=== PATIENT | male | born 1980 | race Two or more races ===

== ENCOUNTER 2020-02-22 11:53 | Outpatient (REF) | payer OTHER, SELFPAY ==
[2020-02-28 11:48] LABS: Testosterone, Free 6.5 pg/mL (35.0-155.0); Testosterone, Total 33 ng/dL (250-1100)
== END 2020-02-22 11:54 | disposition home or self-care (01) ==
LOC: HO.LAB 11:53
PROVIDERS: PCP Internal Medicine; Visit Provider Internal Medicine
DX: E29.1 Testicular hypofunction (principal)
CPT/HCPCS: 36415; 84402; 84403

== ENCOUNTER → 2020-03-13 10:32 | Outpatient (BNVA) | payer OTHER, SELFPAY | PROVIDERS: PCP Internal Medicine; Visit Provider Urology | DX: E29.1 Testicular hypofunction (principal) | CPT/HCPCS: 99202 ==

== ENCOUNTER → 2020-03-28 10:18 | Outpatient (BNVA) | payer OTHER, SELFPAY | PROVIDERS: PCP Internal Medicine; Visit Provider Urology | DX: E29.1 Testicular hypofunction (principal); Z79.891 Long term (current) use of opiate analgesic | CPT/HCPCS: 96372; 99212 ==

== ENCOUNTER → 2020-04-11 14:33 | Outpatient (BNVA) | payer OTHER, SELFPAY | PROVIDERS: PCP Internal Medicine; Visit Provider Urology | DX: E29.1 Testicular hypofunction (principal) | CPT/HCPCS: 96372; 99212 ==

== ENCOUNTER → 2020-04-29 15:07 | Outpatient (BNVA) | payer OTHER, SELFPAY | PROVIDERS: PCP Internal Medicine; Visit Provider Urology | DX: E29.1 Testicular hypofunction (principal) | CPT/HCPCS: 96372; 99212 ==

== ENCOUNTER 2020-11-19 14:41 | Outpatient (REF) | payer OTHER, SELFPAY ==
--- NOTE | ~2020-11-19 | XR_ITS ---
EXAMINATION: XR CHEST CLINICAL INFORMATION: Cough and wheezing. Tobacco use. COMPARISON: None TECHNIQUE: 2 views of the chest were obtained. FINDINGS: No significant abnormality is noted involving the heart, lungs, mediastinum, bony thorax or soft tissues. XR/XR chest 2V IMPRESSION: Unremarkable examination.
== END 2020-11-19 14:42 | disposition home or self-care (01) ==
LOC: HO.XRAY 14:41
PROVIDERS: PCP Internal Medicine; Visit Provider Internal Medicine
DX: R50.9 Fever, unspecified (principal); R06.2 Wheezing; F17.200 Nicotine dependence, unspecified, uncomplicated
CPT/HCPCS: 71046

== ENCOUNTER 2021-03-13 10:04 | Outpatient (REF) | payer OTHER, SELFPAY ==
[2021-03-13 10:51] LABS: Hematocrit 49.5 % (42.0-52.0); Hemoglobin 16.2 g/dl (14.0-18.0); Mean Corpuscular HGB Conc 32.7 g/dl (31.0-36.0); Mean Corpuscular Hemoglobin 27.3 pg (27.0-33.0); Mean Corpuscular Volume 83.3 fL (80.0-98.0); Mean Platelet Volume 10.6 fL (9.4-12.4); Platelet Count 319 X10*3/uL (160-400); Red Blood Count 5.94 X10*6/uL (4.60-5.80); Red Cell Distribution Width 12.7 % (11.0-16.0); White Blood Count 9.3 X10*3/uL (4.8-10.8)
[2021-03-13 11:40] LABS: Prostate Specific Antigen 0.38 ng/mL (<0.05-4.0)
[2021-03-18 11:56] LABS: Testosterone, Total 588 ng/dL (250-1100)
== END 2021-03-13 10:05 | disposition home or self-care (01) ==
LOC: HO.LAB 10:04
PROVIDERS: PCP Internal Medicine; Visit Provider Urology
DX: E29.1 Testicular hypofunction (principal); N40.1 Benign prostatic hyperplasia with lower urinary tract symptoms; N13.8 Other obstructive and reflux uropathy; Z12.5 Encounter for screening for malignant neoplasm of prostate
CPT/HCPCS: 36415; 84153; 84403; 85027

== ENCOUNTER → 2021-03-20 08:55 | Outpatient (BNVA) | payer OTHER, SELFPAY | PROVIDERS: PCP Internal Medicine; Visit Provider Urology ==

== ENCOUNTER 2021-09-11 11:22 | Outpatient (REF) | payer OTHER, SELFPAY ==
[2021-09-11 12:08] LABS: Hematocrit 49.2 % (42.0-52.0); Hemoglobin 16.2 g/dl (14.0-18.0); Mean Corpuscular HGB Conc 32.9 g/dl (31.0-36.0); Mean Corpuscular Hemoglobin 27.1 pg (27.0-33.0); Mean Corpuscular Volume 82.3 fL (80.0-98.0); Mean Platelet Volume 10.4 fL (9.4-12.4); Platelet Count 271 X10*3/uL (160-400); Red Blood Count 5.98 X10*6/uL (4.60-5.80); White Blood Count 10.5 X10*3/uL (4.8-10.8)
[2021-09-11 12:52] LABS: Prostate Specific Antigen 0.68 ng/mL (<0.05-4.0)
[2021-09-21 12:55] LABS: Testosterone, Total 489 ng/dL (250-1100)
== END 2021-09-11 11:23 | disposition home or self-care (01) ==
LOC: HO.LAB 11:22
PROVIDERS: PCP Internal Medicine; Visit Provider Urology
DX: Z12.5 Encounter for screening for malignant neoplasm of prostate (principal); E29.1 Testicular hypofunction; N13.8 Other obstructive and reflux uropathy; N40.1 Benign prostatic hyperplasia with lower urinary tract symptoms
CPT/HCPCS: 36415; 84153; 84403; 85027

== ENCOUNTER → 2021-09-18 13:27 | Outpatient (BNVA) | payer OTHER, SELFPAY | PROVIDERS: PCP Internal Medicine; Visit Provider Urology | DX: E29.1 Testicular hypofunction (principal) | CPT/HCPCS: 99212 ==

== ENCOUNTER 2021-10-28 11:57 | Outpatient (REF) | payer OTHER, SELFPAY ==
[2021-10-28 12:11] LABS: MANUAL DIFF FLAG NO
[2021-10-28 12:17] LABS: Basophils Absolute Auto 0.1 X10*3/uL (0.0-0.2); Basophils Percent Auto 1.1 % (0-2); Eosinophils Absolute Auto 0.3 X10*3/uL (0.0-0.4); Eosinophils Percent Auto 3.4 % (0-4); Hematocrit 49.5 % (42.0-52.0); Hemoglobin 16.1 g/dl (14.0-18.0); Imm Gran Abs Auto 0.04 X10*3/uL (0.00-0.03); Imm Gran Pct Auto 0.4 % (0.0-0.4); Lymphocytes Absolute Auto 2.7 X10*3/uL (1.2-4.9); Lymphocytes Percent Auto 27.9 % (20-40); Mean Corpuscular HGB Conc 32.5 g/dl (31.0-36.0); Mean Corpuscular Hemoglobin 26.7 pg (27.0-33.0); Monocytes Absolute Auto 0.9 X10*3/uL (0.1-1.2); Monocytes Percent Auto 9.2 % (2-11); Neutrophils Absolute Auto 5.6 x10*3/uL (2.0-8.3); Platelet Count 251 X10*3/uL (160-400); Red Blood Count 6.04 X10*6/uL (4.60-5.80); Red Cell Distribution Width 12.9 % (11.0-16.0); White Blood Count 9.7 X10*3/uL (4.8-10.8)
[2021-10-28 13:10] LABS: Alanine Aminotransferase 44 U/L (0-40); Albumin Level 4.4 g/dL (3.5-5.0); Alkaline Phosphatase 75 U/L (39-117); Anion Gap 13 (12-20); Aspartate Amino Transferase 26 U/L (5-37); Bilirubin Total 0.5 mg/dL (0.0-1.0); Blood Urea Nitrogen 11 mg/dL (9-16); Calcium 9.6 mg/dL (8.4-10.2); Carbon Dioxide 29 mmol/L (22-29); Chloride 100 mmol/L (96-108); Estimated Glomerular Filt Rate > 60; Glucose Random 90 mg/dL (60-115); Potassium 4.4 mmol/L (3.3-5.1); Sodium 138 mmol/L (135-145); Total Protein 7.6 g/dL (6.5-8.0)
[2021-10-28 13:30] LABS: Thyroid Stimulating Hormone 1.15 uIU/mL (0.32-4.0)
== END 2021-10-28 11:58 | disposition home or self-care (01) ==
LOC: HO.LAB 11:57
PROVIDERS: PCP Internal Medicine; Visit Provider Internal Medicine
DX: R53.83 Other fatigue (principal); G47.33 Obstructive sleep apnea (adult) (pediatric); R63.5 Abnormal weight gain
CPT/HCPCS: 36415; 80053; 84443; 85025

== ENCOUNTER → 2022-04-12 14:43 | Outpatient (BNVA) | payer OTHER, SELFPAY | PROVIDERS: PCP Internal Medicine; Visit Provider Internal Medicine | DX: G47.33 Obstructive sleep apnea (adult) (pediatric) (principal); F11.90 Opioid use, unspecified, uncomplicated; G47.37 Central sleep apnea in conditions classified elsewhere; E29.1 Testicular hypofunction; E66.9 Obesity, unspecified; F17.200 Nicotine dependence, unspecified, uncomplicated; Z68.34 Body mass index [BMI] 34.0-34.9, adult; Z99.89 Dependence on other enabling machines and devices | CPT/HCPCS: 99202 ==

== ENCOUNTER 2022-05-22 10:36 | Outpatient (REF) | payer OTHER, SELFPAY ==
[2022-05-22 10:55] LABS: Hematocrit 48.1 % (42.0-52.0)
[2022-05-27 14:53] LABS: Testosterone, Total 158 ng/dL (250-1100)
== END 2022-05-22 10:37 | disposition home or self-care (01) ==
LOC: HO.LAB 10:36
PROVIDERS: PCP Internal Medicine; Visit Provider Urology
DX: Z12.5 Encounter for screening for malignant neoplasm of prostate (principal); E29.1 Testicular hypofunction; N13.8 Other obstructive and reflux uropathy; N40.1 Benign prostatic hyperplasia with lower urinary tract symptoms
CPT/HCPCS: 36415; 84153; 84403; 85014

== ENCOUNTER → 2022-05-25 19:30 | Outpatient (REF) | payer OTHER, SELFPAY | LOC: HO.SL 19:30 | PROVIDERS: PCP Internal Medicine; Visit Provider Internal Medicine | DX: G47.33 Obstructive sleep apnea (adult) (pediatric) (principal) | CPT/HCPCS: 95811 ==

== ENCOUNTER → 2022-05-28 12:00 | Outpatient (BNVA) | payer OTHER, SELFPAY | PROVIDERS: PCP Internal Medicine; Visit Provider Urology ==

== ENCOUNTER → 2022-06-09 14:25 | Outpatient (BNVA) | payer OTHER, SELFPAY | PROVIDERS: PCP Internal Medicine; Visit Provider Internal Medicine | DX: G47.33 Obstructive sleep apnea (adult) (pediatric) (principal); E29.1 Testicular hypofunction; G47.37 Central sleep apnea in conditions classified elsewhere; E66.9 Obesity, unspecified; F11.90 Opioid use, unspecified, uncomplicated; Z99.89 Dependence on other enabling machines and devices; Z68.35 Body mass index [BMI] 35.0-35.9, adult | CPT/HCPCS: 99212 ==

== ENCOUNTER → 2022-06-21 15:57 | Outpatient (REF) | payer OTHER, SELFPAY ==
--- NOTE | 2022-06-21 15:59 | CA_ITS ---
Transthoracic Echocardiogram Patient (Last, First, Middle): Thang Funk, Gender: Male Date of : 1980 Age: 42 Procedure Date: 06/21/2022 Procedure Type: Transthoracic Echocardiogram Location: OP Height: 180.34 cm Weight: 113.4 kg BSA: 2.32 m2 Heart Rate: bpm BP: 124 / 80 mmHg Hand Driller: Referring MD: Simran Davila MD Symptoms: G47.37 CENTRAL SLEEP [id number] - Opioid use, unspecified, Study Quality: Adequate ECG Rhythm: Sinus Conclusions: - The left ventricular systolic function is normal. The calculated ejection fraction is 58% by biplane method. - Mildly increased right ventricular cavity size. - No obvious valvular pathology seen on this study. - The inferior vena cava is mildly dilated and collapses less than 50% with inspiration. Findings Left Ventricle Normal left ventricular cavity size. There is mildly increased left ventricular wall thickness. The left ventricular systolic function is normal. The calculated ejection fraction is 58% by biplane method. There is no evidence of regional wall motion abnormalities. Diastolic function is normal for age. LV peak GLS -20.9%. Right Ventricle Mildly increased right ventricular cavity size. There is normal right ventricular systolic function. Atria Both atria are normal in size. Aortic Valve There is a normal trileaflet aortic valve. There is no aortic valve stenosis. There is no aortic valve regurgitation. Mitral Valve The mitral valve appears normal. There is no mitral valve regurgitation. There is no mitral valve stenosis. Pulmonic Valve The pulmonic valve is likely normal. Tricuspid Valve There is trace tricuspid valve regurgitation. There is no evidence of pulmonary hypertension. Great Vessels The asc aorta is normal in size. Venous The inferior vena cava is mildly dilated and collapses less than 50% with inspiration. Pericardium/Pleural There is no evidence of pericardial effusion. Prior Study Comparison No prior study available for comparison. Recommendations, Care & Conclusions No obvious valvular pathology seen on this study. Measurements 2D Linear Measurements IVSd: 1.08 0.6-0.9/0.6-1.0 cm LVIDd: 4.46 3.9-5.3/4.2-5.9 cm LVIDd Index: 1.92 2.4-3.2/2.2-3.1 cm/m2 LVIDs: 2.81 2.0-3.6 cm LVPWd: 1.09 0.7-1.1 cm Ao Root: 3.10 2.1-3.5 cm LA Diam: 3.60 2.7-3.8/3.0-4.0 cm LAIDs Index: 1.55 1.5-2.3 cm/m2 LV Mass: 210.83 67-162/88-224 g LV Mass Index: 90.87 43-95/49-115 g/m2 LVOT Diam: 2.30 3.0+(-)1.3 cm 2D Systolic Function EF 4C: 60.50 >55% EF 2C: 55.00 >55% EF BiP: 57.90 >55% Mitral Valve MV Pk E: 0.99 MV PK A: 0.80 MV Decel Time: 171.00 E/A: 1.20 E'Lateral: 13.40 E'Medial: 12.20 E/E' Med: 8.10 E/E' Lat: 7.40 PHT: 50.00 MVA PHT: 4.40 Decel [place]: 5.79 Aortic Valve AoV Pk Juan: 1.60 AoV Mn Juan: 1.03 AoV VTI: 0.32 AoV Pk Grad: 10.00 Aov Mn Grad: 5.00 SHIRIN Cont.VTI: 2.48 LVOT LVOT Pk Juan: 0.89 LVOT Mn Juan: 0.60 LVOT VTI: 0.19 LVOT Pk Grad: 3.00 LVOT Mn Grad: 2.00 LVOT Diam: 2.30 LVOT Area: 4.15 Diastolic Function MV Pk E: 0.99 MV Pk A: 0.80 E/A: 1.20 E'Medial: 12.20 E/E' Med: 8.10 E' Laterial: 13.40 E/E' Lat: 7.40 Right Ventricle TAPSE (mm): 24.00 TVS' Juan: 16.00 Tricuspid Valve TR Pk Juan: 1.85 TR Pk Grad: 14.00 RA Press: 15.00 RVSP: 29.00 Great Vessels Aorta Ao Root-2D: 3.10 2.0-3.7 cm Ao Asc: 3.10 2.1-3.4 cm Pulmonary Valve PV Pk Juan: 1.00 Peak PV Grad: 4.00 Updated in Other Vendor System with Status of Final Maycol Baird MD electronically signed on 06/22/2022 10:59:43 AM with status of Final
== END ==
LOC: HO.CARD 15:57
PROVIDERS: PCP Internal Medicine; Visit Provider Internal Medicine
DX: F11.90 Opioid use, unspecified, uncomplicated (principal); G47.37 Central sleep apnea in conditions classified elsewhere
CPT/HCPCS: 93306; 93356

== ENCOUNTER 2022-07-03 19:05 | Emergency (ER) | payer OTHER, SELFPAY ==
--- NOTE | ~2022-07-03 | XR_ITS ---
EXAMINATION: XR ABDOMEN KUB CLINICAL INDICATION: Fecal impaction COMPARISON: None available. TECHNIQUE: AP view of the abdomen. FINDINGS: There is a large amount of stool seen in colon without colonic distention. The small bowel loops are normal caliber. Scattered phleboliths are seen in pelvis. No organomegaly. No gross bony abnormality. XR/XR KUB IMPRESSION: Moderate to significant constipation.
[2022-07-03 19:09] VITALS: BP 173/85; PULSE 84; RESP 18; TEMP 36.7; O2SAT 98; BMI 35.5
--- NOTE | 2022-07-03 19:10 | ED_ITS ---
HPI - General Adult General Chief complaint: GI Bleed Stated complaint: Sent by DR. Ayers Time Seen by Provider: 07/03/22 19:43 Source: patient Mode of arrival: ambulatory Limitations: no limitations History of Present Illness HPI narrative: Patient history of constipation on methadone been having hard stool with blood mixed for last 4 days no significant abdominal pain today patient felt nauseated and had blood earlier with brown stool Related Data Home Medications Medication Instructions Recorded Confirmed albuterol sulfate 90 mcg/actuation 2 puff inhalation Q6H PRN wheezing 04/12/22 05/28/22 aerosol inhaler (Ventolin HFA) methadone 10 mg tablet 5 mg PO DAILY 04/12/22 05/28/22 Previous Rx's Medication Instructions Recorded syringe with needle 3 mL 25 x 5/8 #100 ea 01/07/21 (BD Luer-Kitty Syringe) needle (disp) 22 G 22 gauge x 1 #20 ea 03/20/21 1/2 (BD Regular Bevel [place]) syringe (disposable) 1 mL (BD #30 ea 03/20/21 Luer-Kitty Syringe) testosterone cypionate 200 mg/mL 100 mg (0.5 mL) subcut QWEEK 28 05/28/22 intramuscular oil days #2 mL (Depo-Testosterone) polyethylene glycol 3350 17 17 g PO DAILY #510 grams 07/03/22 gram/dose oral powder (Miralax) Allergies Allergy/AdvReac Type Severity Reaction Status Date / Time No Known Allergies Allergy Verified 07/03/22 19:08 Review of Systems Review of Systems: Yes all other systems are reviewed and are negative PMFSH Past Medical History Medical History Central sleep apnea comorbid with prescribed opioid use Hypogonadism in male Obesity (BMI 30-39.9) [place] on CPAP Testosterone deficiency in male Social History Social History Patient Tobacco Use Status: Current everyday Tobacco user Cigarette Packs Per Day: 6 Advance Directives: No Advance Directives Information Provided: Yes Physical Exam ED Vital Signs: Vital Signs - 24 hr 07/03/22 19:09 Temperature 98.0 F Pulse Rate 84 Respiratory Rate 18 Blood Pressure 173/85 H Pulse Oximetry 98 Oxygen Delivery Method Room Air BMI result Body Mass Index 35.5 Appearance: Alert. Oriented X3. No acute distress. Eyes: No pallor ENT: Pharynx normal. Oral Mucosa moist Neck: Normal inspection. Neck supple. CVS: Normal heart rate and rhythm. Pulses normal. Respiratory: No respiratory distress. Equal air entry bilateral, no wheezing/rales/rhonchi Abdomen: Soft and nontender. Bowel sounds are present, no mass palpable, no CVA tenderness rectal: Brown stool guaiac neg Skin: Skin warm and dry. Normal skin color. Normal skin turgor. Extremities: No lower extremity edema. No calf tenderness Neuro: Oriented X 3. No motor deficit. No sensory deficit.No cerebellar signs , cranial nerves II-XII intact Course Course Course Narrative: RME performed by Nella Salmeron PA-C. Patient is a 42 year old assigned male at presenting to the emergency department with constipation, blood in stool, and abdominal pain. Labs ordered. Patient placed back in the waiting room pending room availability and results. Medications Administered Discontinued Medications Generic Name Dose Route Start Last Admin Trade Name Freq PRN Reason Stop Dose Admin Bisacodyl 10 mg 07/03/22 20:05 07/03/22 20:43 Bisacodyl 5 Mg Tablet.Dr PO 07/03/22 20:06 10 mg ONCE ONE Administration Magnesium Hydroxide 30 ml 07/03/22 20:05 07/03/22 20:43 Milk Of Magnesia 30 Ml Oral.Susp PO 07/03/22 20:06 30 ml ONCE ONE Administration Medical Decision Making Medical Decision Making [facility] Narrative: Patient with constipation with rectal bleed likely him internal hemorrhoid no external hemorrhoid seen H&H stable Lab Data [facility] Lab Attestation statement: I reviewed the patient's lab results. 07/03/22 20:24 07/03/22 20:24 Labs: Lab Results 07/03/22 07/03/22 07/03/22 Range/Units 20:24 20:24 20:24 WBC 8.7 (4.8-10.8) X10*3/uL RBC 5.36 (4.60-5.80) X10*6/uL Hgb 14.7 (14.0-18.0) g/dl Hct 44.4 (42.0-52.0) % MCV 82.8 (80.0-98.0) fL MCH 27.4 (27.0-33.0) pg MCHC 33.1 (31.0-36.0) g/dl RDW 12.9 (11.0-16.0) % Plt Count 254 (160-400) X10*3/uL MPV 10.2 (9.4-12.4) fL Immature Gran % (Auto) 0.2 (0.0-0.4) % Neut % (Auto) 47.3 (45-73) % Lymph % (Auto) 36.4 (20-40) % [place] % (Auto) 9.6 (2-11) % Eos % (Auto) 5.2 H (0-4) % Baso % (Auto) 1.3 (0-2) % Lymph # (Auto) 3.2 (1.2-4.9) X10*3/uL [place] # (Auto) 0.8 (0.1-1.2) X10*3/uL Eos # (Auto) 0.5 H (0.0-0.4) X10*3/uL Baso # (Auto) 0.1 (0.0-0.2) X10*3/uL Abs Immat Gran (auto) 0.02 (0.00-0.03) X10*3/uL Absolute Neuts (auto) 4.1 (2.0-8.3) x10*3/uL Absolute Nucleated RBC 0.000 (0.0-0.012) X10*3/uL Nucleated RBC % (auto) 0.0 (0.0-0.2) /100WBC Sodium 139 (135-145) mmol/L Potassium 4.4 (3.3-5.1) mmol/L Chloride 104 (96-108) mmol/L Carbon Dioxide 26 (22-29) mmol/L Anion Gap 13 (12-20) BUN 13 (9-16) mg/dL Creatinine 0.96 (0.5-1.4) mg/dL Estim Creat Clear Calc 130.9 Estimated GFR > 60 Random Glucose 102 (60-115) mg/dL Calcium 9.4 (8.4-10.2) mg/dL Magnesium 2.1 (1.6-2.6) mg/dL Total Bilirubin 0.5 (0.0-1.0) mg/dL AST 21 (5-37) U/L ALT 40 (0-40) U/L Alkaline Phosphatase 70 (39-117) U/L Total Protein 6.9 (6.5-8.0) g/dL Albumin 4.0 (3.5-5.0) g/dL Stool Occult Blood NEGATIVE (NEGATIVE) Discharge Plan Discharge Clinical Impression: Hemorrhoids, Constipation Patient Disposition: Home, Self-Care Instructions: Constipation (ED), Hemorrhoids (ED) Additional Instructions: Take stool softener for constipation and avoid straining Blood in the stool is likely from the constipation/internal hemorrhoids Prescriptions: New polyethylene glycol 3350 [Miralax] 17 gram/dose powder 17 g PO DAILY Qty: 510 0RF No Action (DME) BD Luer-Kitty Syringe 3 mL 25 x 5/8 syringe See Rx Instructions .Route Qty: 100 0RF Rx Instructions: As directed (DME) BD Regular Bevel [place] 22 gauge x 1 1/2 needle See Rx Instructions .MEDSUPPLY Qty: 20 0RF Rx Instructions: As directed (DME) BD Luer-Kitty Syringe 1 mL syringe See Rx Instructions .MEDSUPPLY Qty: 30 0RF Rx Instructions: Testosterone injection weekly methadone 10 mg tablet 5 mg PO DAILY Rx Instructions: pt is at 77mg albuterol sulfate [Ventolin HFA] 90 mcg/actuation HFA aerosol inhaler 2 puff inhalation Q6H PRN (Reason: wheezing) testosterone cypionate [Depo-Testosterone] 200 mg/mL oil 100 mg subcut QWEEK 28 Days Qty: 2 5RF
[2022-07-03 20:00] VITALS: BP 135/85; PULSE 69; RESP 16; TEMP 36.7; O2SAT 95
[2022-07-03 20:31] LABS: MANUAL DIFF FLAG NO
[2022-07-03 20:42] LABS: Basophils Absolute Auto 0.1 X10*3/uL (0.0-0.2); Basophils Percent Auto 1.3 % (0-2); Eosinophils Absolute Auto 0.5 X10*3/uL (0.0-0.4); Eosinophils Percent Auto 5.2 % (0-4); Hematocrit 44.4 % (42.0-52.0); Hemoglobin 14.7 g/dl (14.0-18.0); Imm Gran Abs Auto 0.02 X10*3/uL (0.00-0.03); Imm Gran Pct Auto 0.2 % (0.0-0.4); Lymphocytes Absolute Auto 3.2 X10*3/uL (1.2-4.9); Lymphocytes Percent Auto 36.4 % (20-40); Mean Corpuscular HGB Conc 33.1 g/dl (31.0-36.0); Mean Corpuscular Hemoglobin 27.4 pg (27.0-33.0); Mean Corpuscular Volume 82.8 fL (80.0-98.0); Mean Platelet Volume 10.2 fL (9.4-12.4); Monocytes Absolute Auto 0.8 X10*3/uL (0.1-1.2); Monocytes Percent Auto 9.6 % (2-11); Neutrophils Absolute Auto 4.1 x10*3/uL (2.0-8.3); Neutrophils Percent Auto 47.3 % (45-73); Platelet Count 254 X10*3/uL (160-400); Red Blood Count 5.36 X10*6/uL (4.60-5.80); Red Cell Distribution Width 12.9 % (11.0-16.0); White Blood Count 8.7 X10*3/uL (4.8-10.8)
[2022-07-03] MEDS: Milk of Magnesia 30 ML ORAL.SUSP PO (20:43)
[2022-07-03] MEDS: bisacodyL 5 MG TABLET.DR 10 MG PO (20:43)
[2022-07-03 20:52] LABS: OBS Int Ctl Valid YES; OBS1 NEGATIVE (NEGATIVE)
[2022-07-03 20:58] LABS: Alanine Aminotransferase 40 U/L (0-40); Alkaline Phosphatase 70 U/L (39-117); Anion Gap 13 (12-20); Aspartate Amino Transferase 21 U/L (5-37); Bilirubin Total 0.5 mg/dL (0.0-1.0); Blood Urea Nitrogen 13 mg/dL (9-16); Calcium 9.4 mg/dL (8.4-10.2); Carbon Dioxide 26 mmol/L (22-29); Chloride 104 mmol/L (96-108); Creatinine Clr Calc Pharmacy 130.9; Estimated Glomerular Filt Rate > 60; Glucose Random 102 mg/dL (60-115); Magnesium 2.1 mg/dL (1.6-2.6); Potassium 4.4 mmol/L (3.3-5.1); Sodium 139 mmol/L (135-145); Total Protein 6.9 g/dL (6.5-8.0)
== END 2022-07-03 21:53 | disposition home or self-care (01) ==
PROVIDERS: Physician Assistant Medical; Emergency Provider Internal Medicine; PCP Internal Medicine
DX: K64.4 Residual hemorrhoidal skin tags (principal); K59.00 Constipation, unspecified; F11.20 Opioid dependence, uncomplicated; F17.210 Nicotine dependence, cigarettes, uncomplicated; Z79.899 Other long term (current) drug therapy
CPT/HCPCS: 36415; 74018; 80053; 82272; 83735; 85025; 99283

== ENCOUNTER → 2022-07-08 19:30 | Outpatient (REF) | payer OTHER, SELFPAY | LOC: HO.SL 19:30 | PROVIDERS: PCP Internal Medicine; Visit Provider Internal Medicine | DX: F11.90 Opioid use, unspecified, uncomplicated (principal); G47.37 Central sleep apnea in conditions classified elsewhere | CPT/HCPCS: 95811 ==

== ENCOUNTER → 2022-07-27 09:59 | Outpatient (BNVA) | payer OTHER, SELFPAY | PROVIDERS: PCP Internal Medicine; Visit Provider Internal Medicine | DX: G47.33 Obstructive sleep apnea (adult) (pediatric) (principal); E66.9 Obesity, unspecified; E29.1 Testicular hypofunction; F11.90 Opioid use, unspecified, uncomplicated; G47.37 Central sleep apnea in conditions classified elsewhere; Z99.89 Dependence on other enabling machines and devices; Z68.34 Body mass index [BMI] 34.0-34.9, adult | CPT/HCPCS: 99212 ==

== ENCOUNTER 2022-08-23 10:50 | Emergency (ER) | payer OTHER, SELFPAY ==
--- NOTE | 2022-08-23 11:20 | ED.GENADULT ---
HPI - General Adult General Chief complaint: Upper Respiratory Symptoms Stated complaint: Bronchitis Time Seen by Provider: 08/23/22 11:19 Source: patient Mode of arrival: ambulatory Limitations: no limitations History of Present Illness HPI narrative: Patient is a 42 year old assigned male at with a history of asthma presenting to the emergency department today with a cough and worsening wheezing. Patient states that over the last 3 days he has had worsening cough and wheezing. Patient denies any dizziness, lightheadedness, abdominal pain, nausea, vomiting, fever, chills, blurry vision, double vision, loss of vision, chest pain, difficulty breathing, shortness of breath, back pain, night sweats, pain with urination, increased urinary frequency, increased urinary urgency, blood in his urine or stool, syncope or a near syncopal episode, recent trauma or falls, bowel incontinence, bladder incontinence, bowel retention, bladder retention, or any other complaints at this time. Onset (ago): day(s) (3) Severity: mild Severity scale (1-10): 3 Relieving factors: none Exacerbating factors: none Associated symptoms: cough Treatments prior to arrival: none Related Data Home Medications Medication Instructions Recorded Confirmed albuterol sulfate 90 mcg/actuation 2 puff inhalation Q6H PRN wheezing 04/12/22 05/28/22 aerosol inhaler (Ventolin HFA) methadone 10 mg tablet 5 mg PO DAILY 04/12/22 05/28/22 Previous Rx's Medication Instructions Recorded syringe with needle 3 mL 25 x 5/8 #100 ea 01/07/21 (BD Luer-Kitty Syringe) needle (disp) 22 G 22 gauge x 1 #20 ea 03/20/21 1/2 (BD Regular Bevel [place]) syringe (disposable) 1 mL (BD #30 ea 03/20/21 Luer-Kitty Syringe) testosterone cypionate 200 mg/mL 100 mg (0.5 mL) subcut QWEEK 28 05/28/22 intramuscular oil days #2 mL (Depo-Testosterone) polyethylene glycol 3350 17 17 g PO DAILY #510 grams 07/03/22 gram/dose oral powder (Miralax) prednisone 20 mg tablet 20 mg PO DAILY 7 days #7 tabs 08/23/22 Allergies Allergy/AdvReac Type Severity Reaction Status Date / Time No Known Allergies Allergy Verified 07/27/22 10:07 Review of Systems Constitutional: Constitutional: Reports no additional constitutional complaints, Denies chills, Denies fever(s) and Denies night sweats Eyes: Eyes: Reports no additional eye complaints, Denies blurry vision, Denies change in vision, Denies diplopia, Denies eye discharge, Denies loss of vision and Denies eye pain ENT: Denies dizziness Cardiovascular: Cardiovascular: Reports no additional cardiovascular complaints, Denies chest pain, Denies lightheadedness, Denies Loss of Consciousness and Denies dyspnea Respiratory: Respiratory: Reports no additional respiratory complaints, Reports cough, Denies dyspnea and Reports wheezing Gastrointestinal: Gastrointestinal: Reports no additional gastrointestinal complaints, Denies abdominal pain, Denies melena, Denies hematochezia, Denies change in bowel habits and Denies change in stool character Genitourinary: Genitourinary: Reports no additional male genitourinary complaints, Denies hematuria, Denies oliguria, Denies difficulty urinating, Denies dysuria, Denies urinary frequency, Denies urinary hesitancy, Denies urinary incontinence and Denies urinary urgency Musculoskeletal: Musculoskeletal: Reports no additional musculoskeletal complaints, Denies numbness and Denies tingling Neurologic: Denies dizziness, Denies loss of vision, Denies numbness and Denies tingling Psychiatric: Psychiatric: Reports no additional psychiatric complaints Endocrine: Endocrine: Reports no additional endocrine complaints Hematologic/Lymphatic: Hematologic/Lymphatic: Reports no additional hematologic/lymphatic complaints Allergic/Immunologic: Allergic/Immunologic: Reports no additional allergic/immunologic complaints and Reports wheezing PMFSH Past Medical History Attestation statement: The following information was validated with the patient. Source: old records reviewed and nursing notes reviewed Medical History Central sleep apnea comorbid with prescribed opioid use Hypogonadism in male Obesity (BMI 30-39.9) [place] on CPAP Testosterone deficiency in male Social History Social History Patient Tobacco Use Status: Current everyday Tobacco user Cigarette Packs Per Day: 0.5 Cigarettes Per Day: 6 Advance Directives: No Advance Directives Information Provided: Yes Physical Exam ED Vital Signs: Vital Signs - 24 hr 08/23/22 11:21 08/23/22 11:46 08/23/22 11:50 Temperature 0 F L 98.2 F Pulse Rate 0 L 77 80 Respiratory Rate 0 L 18 20 Blood Pressure 176/94 H Pulse Oximetry 0 L 100 Oxygen Delivery Method Room Air Room Air 08/23/22 12:31 Temperature Pulse Rate 99 Respiratory Rate 16 Blood Pressure 164/78 H Pulse Oximetry 99 Oxygen Delivery Method Room Air BMI result Body Mass Index 34.9 Const General: cooperative, no acute distress, alert and awake Nutritional Appearance: well nourished Orientation/consciousness: patient oriented x3 Limitations: no limitations HENMT Head: Yes normal to inspection and Yes atraumatic Ears: hearing grossly normal bilaterally and external ears normal General nose exam: Normal external nose present, no nasal discharge noted and no epistaxis Face and sinus: Yes normal facial exam, No abrasion and No laceration Mouth: Normal oral and palatal mucosa present, no drooling and no muffled voice Eyes General: appearance normal, both eyes and all related structures Periorbital: periorbital findings normal Eyelids: Yes eyelids normal Conjunctivae: conjunctivae normal Pupils: Equal, round and reactive pupils present EOM: EOMs intact bilaterally Neck Neck: Yes normal visual inspection, Yes full ROM and Yes no lymphadenopathy Chest Chest palpation & inspection: normal inspection of the chest Resp Effort & Inspection: normal respiratory effort and able to speak in complete sentences Auscultation: wheezes throughout Cardio Rate: regular rate Rhythm: regular rhythm GI Inspection: Yes normal to inspection Neuro General: patient oriented x3 and moves all extremities Cranial nerves: Yes Equal, round and reactive pupils present Cognition (Neuro): normal cognition Motor exam (neuro): 5/5 motor strength present throughout Sensory Exam: Normal double simultaneous stimulation for sensation Coordination: [id number] test normal Extrem General: Yes normal to inspection, Yes full ROM and Yes capillary refill normal Psych Appearance: grossly normal Mental Status: mental status grossly normal Affect: normal affect Attitude: cooperative Thought process: Normal thought process present Thought content: Normal thought content present Insight: Good insight present (Psych) Medications Administered Discontinued Medications Generic Name Dose Route Start Last Admin Trade Name Freq PRN Reason Stop Dose Admin Albuterol Sulfate 10 mg 08/23/22 11:23 08/23/22 11:42 Albuterol Sulfate (0.083%) 2.5 Mg/3 Ml Vial.Neb INHALE 08/23/22 11:24 10 mg ONCE ONE Administration Methylprednisolone Sodium Succinate 60 mg 08/23/22 11:23 08/23/22 11:35 Methylprednisolone Sod Succ 125 Mg/2 Ml Vial IM 08/23/22 11:24 60 mg ONCE ONE Administration Medical Decision Making Medical Decision Making [facility] Narrative: Patient is a 42 year old assigned male at with a history of asthma presenting to the emergency department today with a cough and wheezing. Patient's physical exam showed mild wheezing throughout but was otherwise unremarkable. Patient's rapid COVID-19 and influenza swabs were negative. Patient's chest x-ray showed no acute process. I explained my physical exam findings as well as all test results to the patient. I answered all questions asked by the patient. Patient received IM Solu-medrol and a breathing treatment which he stated helped his symptoms significantly. I stressed the importance of the patient taking his medication as prescribed. I stressed the importance of the patient following up with his primary care provider. I stressed the importance of the patient returning to the emergency department immediately if his symptoms were to worsen or if he were to develop any dizziness, shortness of breath, difficulty breathing, chest pain, blurry vision, loss of vision, nausea, vomiting, abdominal pain, fever, chills, back pain, or any other complaints. Patient verbalized agreement and understanding with this treatment plan and discharge. Differential Diagnosis Differential Diagnoses: The differential diagnosis associated with the presentation includes COVID-19 Influenza Cough Wheezing Asthma Asthma exacerbation Admission/Observation Consideration of admission/observation: Escalation of care including admission/observation considered Patient would have been admitted to the hospital had his work up had any findings where hospital admission was appropriate and his clinical presentation warranted hospital admission. Lab Data MDM Lab Attestation statement: I reviewed the patient's lab results. My interpretation of these studies and their corresponding values is that they are grossly normal. Labs: Lab Results 08/23/22 08/23/22 08/23/22 Range/Units 11:26 11:26 11:26 COVID-19 (ESTEFANIA) Negative (Negative) COVID-19 Clin Com See Note Influenza Type A (QUENTIN) Negative (Negative) Influenza Type B (QUENTIN) Negative (Negative) Influenza A & B Note See Note S. pyogenes GrpA QUENTIN Negative (Negative) Independent Interpretation I performed an independent interpretation of an: Plain X-Ray Interpretation: My interpretation is in agreement with the radiologist's impression of this imaging study. EXAMINATION: XR CHEST CLINICAL INFORMATION: Cough. COMPARISON: 11/19/2020 TECHNIQUE: 2 views of the chest were obtained. FINDINGS: The lungs are moderately expanded. No focal consolidation. No pleural effusion. Cardiac silhouette is unchanged. XR/XR chest 2V IMPRESSION: No acute abnormality. Dictated By: Susan Cano MD Signed By: Electronically signed by Susan Cano MD 08/23/22 [id number] Radiology Impression Discussion of test interpretation with radiology: I have reviewed the radiologist's reading. Prescription Management I considered prescription management with: Other (steroids) Chronic Conditions Patient?s care impacted by: Other (asthma) Discharge Plan Discharge Clinical Impression: Asthma exacerbation Patient Disposition: Home, Self-Care Instructions: Asthma (DC) Additional Instructions: Follow up with your primary care provider. Return to the emergency department immediately if your symptoms worsen or if you develop any dizziness, shortness of breath, difficulty breathing, chest pain, blurry vision, loss of vision, nausea, vomiting, abdominal pain, fever, chills, back pain, or any other complaints. Prescriptions: New prednisone 20 mg tablet 20 mg PO DAILY 7 Days Qty: 7 0RF No Action (DME) BD Luer-Kitty Syringe 3 mL 25 x 5/8 syringe See Rx Instructions .Route Qty: 100 0RF Rx Instructions: As directed polyethylene glycol 3350 [Miralax] 17 gram/dose powder 17 g PO DAILY Qty: 510 0RF (DME) BD Regular Bevel [place] 22 gauge x 1 1/2 needle See Rx Instructions .MEDSUPPLY Qty: 20 0RF Rx Instructions: As directed (DME) BD Luer-Kitty Syringe 1 mL syringe See Rx Instructions .MEDSUPPLY Qty: 30 0RF Rx Instructions: Testosterone injection weekly methadone 10 mg tablet 5 mg PO DAILY Rx Instructions: pt is at 77mg albuterol sulfate [Ventolin HFA] 90 mcg/actuation HFA aerosol inhaler 2 puff inhalation Q6H PRN (Reason: wheezing) testosterone cypionate [Depo-Testosterone] 200 mg/mL oil 100 mg subcut QWEEK 28 Days Qty: 2 5RF Referrals: Donny Ayers MD [Primary Care Provider] - Stand Alone Forms: Work/School Release Interventions: ED Discharge Assessment Last Done: 08/23/22 13:10 Discharge Date/Time: 08/23/22 13:10 Print Language: Lithuanian
[2022-08-23 11:21] VITALS: PULSE 0; RESP 0; TEMP -17.7; TEMP 0; O2SAT 0; BMI 34.9
[2022-08-23 11:46] VITALS: PULSE 77; RESP 18; O2SAT 97
[2022-08-23 11:50] VITALS: BP 176/94; PULSE 80; RESP 20; TEMP 36.8; O2SAT 100
[2022-08-23 12:31] VITALS: BP 164/78; PULSE 99; RESP 16; O2SAT 99
== END 2022-08-23 13:10 | disposition home or self-care (01) ==
PROVIDERS: Emergency Provider Emergency Medicine; PCP Internal Medicine
DX: J45.901 Unspecified asthma with (acute) exacerbation (principal); R05.9 Cough, unspecified; Z20.822 Contact with and (suspected) exposure to COVID-19; Z20.828 Contact with and (suspected) exposure to other viral communicable diseases; Z79.899 Other long term (current) drug therapy
CPT/HCPCS: 71046; 87502; 87635; 87651; 94640; 96372; 99284; J2930

== ENCOUNTER 2022-09-29 10:49 | Outpatient (AMB) | payer OTHER, SELFPAY ==
[2022-09-29 10:53] VITALS: BP 120/80; PULSE 80; O2SAT 98; BMI 35.3
--- NOTE | 2022-09-29 10:53 | MHC.OFFVIS ---
Intake Vital Signs 09/29/22 10:53 Height 5 ft 11 in Weight 253 lb BMI 35.3 BP 120/80 Blood Pressure Location Lt brachial Position Sitting Pulse 80 Pulse Source Pulse Oximeter Pulse Oximetry (%) 98 Oxygen Delivery Method Room Air Intake Visit Reasons: Obstructive sleep apnea Intake Note: pt is here for follow up and states that he is trying to get use of asv mode but does not feel a difference yet. He saw Remedy for central apneas. and is interested in this. Allergies No Known Allergies Allergy (Verified 09/29/22 11:12) Medication List - Last Reconciled 09/29/22 by Simran Davila MD albuterol sulfate 90 mcg/actuation (Ventolin HFA) 2 puffs inhalation Q6H PRN methadone 5 mg PO DAILY needle (disp) 22 G (BD Regular Bevel [place]) As directed polyethylene glycol 3350 (Miralax) 17 grams PO DAILY prednisone 20 mg PO DAILY 7 days syringe (disposable) (BD Luer-Kitty Syringe) Testosterone injection weekly syringe with needle (BD Luer-Kitty Syringe) As directed testosterone cypionate (Depo-Testosterone) 100 mg (0.5 mL) subcut QWEEK 28 days Do you need a note to return to daycare/school/sports/work: No HPI Obstructive sleep apnea HPI Details 42 YEARS OLD GENTLEMAN, MODERATELY OBESE,, WITH COMPLEX SLEEP APNEA, HAS BEEN STARTED ON CPAP WITH ASV MODE. HE IS USING THE CPAP EVERY NIGHT, BUT ONLY FOR 3-4 HOURS PER NIGHT. HE STILL WAKES A FEW TIMES DURING THE NIGHT, THEN HAS HARD. TIME TO GO BACK TO SLEEP. COMPLAINS OF BEING TIRED AND SLEEPY DURING THE DAYTIME. ENQUIRING ABOUT THE USE OF REMEDY FOR CENTRAL SLEEP APNEA. 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 Hypogonadism in male Obesity (BMI 30-39.9) CORETTA on CPAP Testosterone deficiency in male Social History Patient Tobacco Use Status: Current everyday Tobacco user Cigarette Packs Per Day: 0.5 Cigarettes Per Day: 6 Review of Systems Const All systems reviewed & are unremarkable except as noted in HPI and below Eyes Reports no additional complaints ENT Reports no additional complaints Card Denies chest pain, Denies irregular heart rhythm, Denies leg edema and Denies dyspnea Resp Denies cough, Denies dyspnea and Denies wheezing GI Reports no additional complaints Reports change in libido and Reports erectile dysfunction (PATIENT ON TEST 0 STEROID ON THERAPY) Musc Reports no additional complaints Skin/Breast Reports system reviewed and no additional complaints, except as documented Neuro Reports no additional complaints Psych Reports no additional complaints and Reports change in libido Endo Reports change in libido and Reports other (BEING TREATED FOR HYPOGONADISM) Tremaine/Lymph Reports no additional complaints Aller/Immun Denies wheezing Physical Exam Vital Signs: Last Vital Signs Pulse 80 09/29/22 10:53 BP 120/80 09/29/22 10:53 Pulse Ox 98 09/29/22 10:53 Oxygen Delivery Method Room Air 09/29/22 10:53 BMI result Body Mass Index 35.3 Const Other: PATIENT HAS ROUND FACE AND OBESE NECK General: comfortable, no acute distress, alert and awake Orientation/consciousness: patient oriented x3 HEENT Other: MALLAMPATI CLASS 4 Head: Yes normal to inspection General nose exam: No nasal polyps present and No nasal discharge present Face and sinus: Yes sinuses nontender Mouth: oropharynx normal Throat: Yes posterior oropharynx normal Eyes General: appearance normal, both eyes and all related structures Neck Neck: Yes normal visual inspection, Yes no lymphadenopathy, Yes trachea midline, Yes no JVD and Yes other (NECK CIRCUMFERENCE 18-1/2 INCH) Thyroid: Thyroid normal Chest Chest palpation & inspection: normal inspection of the chest, normal palpation of entire chest wall and no tenderness Resp Effort & Inspection: normal respiratory effort Auscultation: clear to auscultation bilaterally, no crackles and no wheezes Cardio Palpation: normal PMI Rate: regular rate Rhythm: regular rhythm Heart sounds: no gallops and no murmurs Peripheral pulses: Peripheral pulses 2+ throughout GI Palpation (GI): Soft to palpation, nontender, No hepatosplenomegaly present and no masses Auscultation: normal bowel sounds Back/Spine/Pelvis Thoracic/Lumbar Spine: thoracic and lumbar spine normal to inspection Skin General skin exam: no rashes or lesions noted Neuro General: patient oriented x3 and no focal motor deficits Cranial nerves: Yes CN's II-XII intact bilaterally Extrem General: Yes normal to inspection, Yes no clubbing, cyanosis or edema and Yes no calf tenderness Psych Appearance: grossly normal and well kempt Speech and movement: Normal speech and movement present Results Reviewed Results Reviewed: COMPLIANCE REPORT FOR THE LAST 30 NIGHTS IS REVIEWED. USED 29/30 NIGHTS, 97%. AVERAGE USE IT PER NIGHT 4 HOURS 15 MINUTES ASV MODE, EPAP 9 CM, MINIMUM PS 3 CM MAXIMUM PS 15 CM. RESIDUAL AHI 8.5 Assessment & Plan Assessment & Plan (1) Obesity (BMI 30-39.9): Comment: BMI=35 , PATIENT IS MODERATELY OBESE, IT IS PARTLY CONTRIBUTED BY TESTOSTERONE THERAPY, HE HAS EXCESSIVE OBESE TISSUE AROUND THE NECK, AND OROPHARYNX. Code(s): E66.9 - Obesity, unspecified (2) Complex sleep apnea syndrome: Comment: THIS GENTLEMAN IS A CASE OF OBSTRUCTIVE SLEEP APNEA AND, TREATMENT EMERGENT CENTRAL APNEA. HE IS RESPONDING TO ASV MODE FAIRLY WELL. RESIDUAL FATIGUE AND SLEEPINESS IS DUE TO SUBOPTIMAL USE OF CPAP. AND DUE TO ASSOCIATED MEDICAL PROBLEM ONCE AGAIN I THOROUGHLY EXPLAINED TO HIM THE CAUSE AND NATURE OF HIS SLEEP APNEA AND USE OF ASV MODE. I WILL LOOK IN TO REMEDY BUT AT THIS TIME HE IS ENCOURAGED TO USE THE CPAP FOR ABOUT 6 HOURS EVERY NIGHT AT LEAST. HE IS ALSO ENCOURAGED TO LOSE WEIGHT AND DO DAILY. EXERCISE WILL RECHECK IN 2 MONTHS. Code(s): G47.31 - Primary central sleep apnea Coding Level of Care Code Est Pt Level 3 (20230) Diagnoses Obesity (BMI 30-39.9) E66.9 Complex sleep apnea syndrome G47.31
== END 2022-09-29 11:11 | disposition home or self-care (01) ==
PROVIDERS: PCP Internal Medicine; Visit Provider Internal Medicine
DX: E66.9 Obesity, unspecified (principal); G47.31 Primary central sleep apnea
CPT/HCPCS: 99213

== ENCOUNTER → 2022-09-29 10:49 | Outpatient (BNVA) | payer OTHER, SELFPAY | PROVIDERS: PCP Internal Medicine; Visit Provider Internal Medicine | DX: G47.31 Primary central sleep apnea (principal); E66.9 Obesity, unspecified; Z68.35 Body mass index [BMI] 35.0-35.9, adult | CPT/HCPCS: 99212 ==

== ENCOUNTER 2022-10-22 10:02 | Outpatient (REF) | payer OTHER, SELFPAY ==
[2022-10-22 10:50] LABS: Hematocrit 49.3 % (42.0-52.0); Hemoglobin 16.1 g/dl (14.0-18.0); Mean Corpuscular HGB Conc 32.7 g/dl (31.0-36.0); Mean Corpuscular Hemoglobin 27.2 pg (27.0-33.0); Mean Corpuscular Volume 83.1 fL (80.0-98.0); Mean Platelet Volume 10.9 fL (9.4-12.4); Platelet Count 251 X10*3/uL (160-400); Red Blood Count 5.93 X10*6/uL (4.60-5.80); Red Cell Distribution Width 12.5 % (11.0-16.0); White Blood Count 8.3 X10*3/uL (4.8-10.8)
[2022-10-22 11:34] LABS: Prostate Specific Antigen 0.62 ng/mL (<0.05-4.0)
[2022-10-27 10:59] LABS: Testosterone, Total 1026 ng/dL (250-1100)
== END 2022-10-22 10:03 | disposition home or self-care (01) ==
LOC: HO.LAB 10:02
PROVIDERS: PCP Internal Medicine; Visit Provider Urology
DX: Z12.5 Encounter for screening for malignant neoplasm of prostate (principal); E29.1 Testicular hypofunction
CPT/HCPCS: 36415; 84153; 84403; 85027

== ENCOUNTER 2022-12-02 08:18 | Outpatient (AMB) | payer OTHER, SELFPAY ==
--- NOTE | 2022-12-02 11:04 | MHC.OFFVIS ---
Intake Intake Visit Reasons: 6M CBC/PSA/TESTOSTERONE(set) Intake Note: Patient is Present for Telephone Follow Up labs Urology Med: Testosterone Antibiotic Allergy:None Blood Thinner:None Pharamcy:[facility] Allergies No Known Allergies Allergy (Verified 12/02/22 11:05) HPI HPI Comments History of Present Illness Details Thang is a pleasant male. He is a patient of Dr. Ayers. He is seen for the following urologic conditions - hypogonadism Telemedicine Evaluation 15 min Consultation [employer] Abdoulaye Video attempted Medication works when he is consistent dosing Has struggled with needles for subcutaneous Refill provided with 18 gauge needles Injection Day: Lab Day: Tuesday Hypogonadism Low T secondary to longstanding methadone Current doses 0.5 cc weekly No family history prostate cancer Therapy performed by injection Laboratories 03/06 T33, 03/07 T 588 P 0.4 H 49, 06/06 T 158 P 0.4, 11/06 1026 0.6 49 Therapeutic plan continue injections PFSH Medical History Complex sleep apnea syndrome Central sleep apnea comorbid with prescribed opioid use Testosterone deficiency in male CORETTA on CPAP Obesity (BMI 30-39.9) Hypogonadism in male Social History Patient Tobacco Use Status: Current everyday Tobacco user Cigarette Packs Per Day: 0.5 Cigarettes Per Day: 6 Review of Systems Const All systems reviewed & are unremarkable except as noted in HPI and below Reports no additional complaints Resp Reports no additional complaints GI Reports no additional complaints Reports as per HPI Musc Reports no additional complaints Physical Exam Telemedicine evaluation Appropriate responses Regular breathing rate and rhythm HEENT Head: Yes normal to inspection Ears: hearing grossly normal bilaterally Eyes General: appearance normal, both eyes and all related structures Neck Neck: Yes normal visual inspection Chest Chest palpation & inspection: normal inspection of the chest Resp Effort & Inspection: normal respiratory effort and able to speak in complete sentences Assessment & Plan Assessment & Plan (1) Testosterone deficiency in male: Comment: FOR HIS DIAGNOSIS OF HYPOGONADISM. HE IS GETTING TESTOSTERONE THERAPY. SHOULD BE NOTED THAT TESTOSTERONE THERAPY IS A COMMON RISK FACTOR FOR OBSTRUCTIVE SLEEP APNEA, Code(s): E29.1 - Testicular hypofunction Plan Continue therapy Medications: New needle (disp) 18 G (BD Regular Bevel [place]) As directed 30 ea 0RF E29.1 - Testicular hypofunction syringe (disposable) (BD Luer-Kitty Syringe) Testosterone injection weekly 30 ea 0RF E29.1 - Testicular hypofunction, E34.9 - Endocrine disorder, unspecified Refilled testosterone cypionate (Depo-Testosterone) 100 mg (0.5 mL) subcut QWEEK 2 mL 5RF 28 days E29.1 - Testicular hypofunction Patient Instructions: Imaging studies, laboratory and physical exam results were discussed and reviewed in detail. No major barriers to patient understanding were identified. An opportunity to ask questions regarding the treatment plan was provided. All questions were answered. The patient expressed understanding and agreement with the above treatment plan. The patient is aware they should contact our office by phone for worsening of their current condition or the appearance of new urologic symptoms. Compliance is encouraged with any medications and followup testing that is ordered. It is a privilege to participate in the urologic care of your patient. If you have any questions or concerns regarding treatment for the above conditions, or other urologic issues, please do not hesitate to contact me. The office telephone contact is [phone]. This note is constructed using voice recognition software. While every effort has been made to ensure accuracy radiology transcriptionist errors may have been included. Yours sincerely, Dr Regan Christianson MD, [facility] - Urology Providers of Expert, Compassionate Care for the Genitourinary System Telehealth Telehealth Location of provider rendering services: practice address Location of patient: address on file Patient Identification confirmed using: Name, : Yes Telehealth method: video Patient verbally consented to treatment: Yes Patient verbally consented to billing insurance company: Yes Patient informed of any privacy concerns related to visit: Yes Coding Level of Care Code Tele Est Pt Level 3 (61267) Diagnoses Testosterone deficiency in male E29.1
== END 2022-12-02 11:56 | disposition home or self-care (01) ==
LOC: HO.HUSH 08:18
PROVIDERS: PCP Internal Medicine; Visit Provider Urology
DX: E29.1 Testicular hypofunction (principal)
CPT/HCPCS: 99213

== ENCOUNTER → 2022-12-02 08:18 | Outpatient (BNVA) | payer OTHER, SELFPAY | PROVIDERS: PCP Internal Medicine; Visit Provider Urology ==

== ENCOUNTER 2022-12-15 13:43 | Outpatient (AMB) | payer OTHER, SELFPAY ==
[2022-12-15 13:53] VITALS: BP 130/82; PULSE 93; O2SAT 96; BMI 35.0
--- NOTE | 2022-12-15 13:53 | A.OFFVIS_ITS ---
Intake Vital Signs 12/15/22 13:53 Height 5 ft 11 in Weight 251 lb BMI 35.0 BP 130/82 Blood Pressure Location Lt brachial Position Sitting Pulse 93 Pulse Source Pulse Oximeter Pulse Oximetry (%) 96 Oxygen Delivery Method Room Air Intake Visit Reasons: Obstructive sleep apnea Intake Note: pt is here for follow up and states he is doing better, and only some bad days in between. 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 Allergies No Known Allergies Allergy (Verified 12/15/22 14:11) Medication List - Last Reconciled 12/15/22 by Simran Davila MD albuterol sulfate 90 mcg/actuation (Ventolin HFA) 2 puffs inhalation Q6H PRN albuterol sulfate mg inhalation methadone 5 mg PO DAILY needle (disp) 18 G (BD Regular Bevel [place]) As directed needle (disp) 22 G (BD Regular Bevel [place]) As directed polyethylene glycol 3350 (Miralax) 17 grams PO DAILY syringe (disposable) (BD Luer-Kitty Syringe) Testosterone injection weekly syringe (disposable) (BD Luer-Kitty Syringe) Testosterone injection weekly syringe with needle (BD Luer-Kitty Syringe) As directed testosterone cypionate (Depo-Testosterone) 100 mg (0.5 mL) subcut QWEEK 28 days Do you need a note to return to daycare/school/sports/work: No HPI Obstructive sleep apnea HPI Details THIS 42 YEARS OLD GENTLEMAN WHO IS THE MODERATELY OBESE, HE IS ON METHADONE WELL TESTOSTERONE THERAPY, CONTRIBUTING TO HIS SLEEP APNEA. HE HAS COMPLEX SLEEP APNEA WITH A FAIRLY GOOD COMPONENT OF CENTRAL APNEAS. HE IS BEING TREATED WITH ASV MODE, HE LIKES THE MASK AND SLEEPS MUCH BETTER. CLAIMS THAT HE WAKES UP MORE REFRESHED, AND DOES NOT HAVE DAYTIME SLEEPINESS. HE HAS TO GO TO THE BATHROOM 1 OR 2 TIMES DURING THE NIGHT AND, SOMETIMES THE MASK SLIPS OFF A LITTLE. HE ENDS UP USING ABOUT 6 HOURS EVERY NIGHT. [facility] Medical History Complex sleep apnea syndrome Central sleep apnea comorbid with prescribed opioid use Testosterone deficiency in male CORETTA on CPAP Obesity (BMI 30-39.9) Hypogonadism in male Social History Patient Tobacco Use Status: Current everyday Tobacco user Cigarette Packs Per Day: 0.5 Cigarettes Per Day: 6 Review of Systems Const All systems reviewed & are unremarkable except as noted in HPI and below Eyes Reports no additional complaints ENT Reports no additional complaints Card Denies chest pain, Denies irregular heart rhythm, Denies leg edema and Denies dyspnea Resp Denies cough, Denies dyspnea and Denies wheezing GI Reports no additional complaints Reports change in libido and Reports erectile dysfunction (PATIENT ON TEST 0 STEROID ON THERAPY) Musc Reports no additional complaints Skin/Breast Reports system reviewed and no additional complaints, except as documented Neuro Reports no additional complaints Psych Reports no additional complaints and Reports change in libido Endo Reports change in libido and Reports other (BEING TREATED FOR HYPOGONADISM) Tremaine/Lymph Reports no additional complaints Aller/Immun Denies wheezing Physical Exam Vital Signs: Last Vital Signs Pulse 93 12/15/22 13:53 BP 130/82 12/15/22 13:53 Pulse Ox 96 12/15/22 13:53 Oxygen Delivery Method Room Air 12/15/22 13:53 BMI result Body Mass Index 35.0 Const Other: PATIENT HAS ROUND FACE AND OBESE NECK General: comfortable, no acute distress, alert and awake Orientation/consciousness: patient oriented x3 HEENT Other: MALLAMPATI CLASS 4 Head: Yes normal to inspection General nose exam: No nasal polyps present and No nasal discharge present Face and sinus: Yes sinuses nontender Mouth: oropharynx normal Throat: Yes posterior oropharynx normal Eyes General: appearance normal, both eyes and all related structures Neck Neck: Yes normal visual inspection, Yes no lymphadenopathy, Yes trachea midline, Yes no JVD and Yes other (NECK CIRCUMFERENCE 18-1/2 INCH) Thyroid: Thyroid normal Chest Chest palpation & inspection: normal inspection of the chest, normal palpation of entire chest wall and no tenderness Resp Effort & Inspection: normal respiratory effort Auscultation: clear to auscultation bilaterally, no crackles and no wheezes Cardio Palpation: normal PMI Rate: regular rate Rhythm: regular rhythm Heart sounds: no gallops and no murmurs Peripheral pulses: Peripheral pulses 2+ throughout GI Palpation (GI): Soft to palpation, nontender, No hepatosplenomegaly present and no masses Auscultation: normal bowel sounds Back/Spine/Pelvis Thoracic/Lumbar Spine: thoracic and lumbar spine normal to inspection Skin General skin exam: no rashes or lesions noted Neuro General: patient oriented x3 and no focal motor deficits Cranial nerves: Yes CN's II-XII intact bilaterally Extrem General: Yes normal to inspection, Yes no clubbing, cyanosis or edema and Yes no calf tenderness Psych Appearance: grossly normal and well kempt Speech and movement: Normal speech and movement present Results Reviewed Results Reviewed: COMPLIANCE REPORT FOR THE LAST 30 NIGHTS IS REVIEWED. HE HAS USED 30/30 DAYS, AVERAGE USE IT PER NIGHT 6 HOURS 7 MINUTES, THERE IS SOME AIR LEAK, RESIDUAL AHI 4.5 Assessment & Plan Assessment & Plan (1) Complex sleep apnea syndrome: Comment: THIS GENTLEMAN IS A CASE OF OBSTRUCTIVE SLEEP APNEA AND, TREATMENT EMERGENT CENTRAL APNEA. HE IS RESPONDING TO ASV MODE FAIRLY WELL. ONCE AGAIN I THOROUGHLY EXPLAINED TO HIM THE CAUSE AND NATURE OF HIS SLEEP APNEA AND USE OF ASV MODE. HE IS ENCOURAGED TO USE THE CPAP FOR ABOUT 6 HOURS EVERY NIGHT AT LEAST. HE IS ALSO ENCOURAGED TO LOSE WEIGHT AND DO DAILY. EXERCISE WILL RECHECK IN 2 MONTHS. Code(s): G47.31 - Primary central sleep apnea (2) Obesity (BMI 30-39.9): Comment: BMI=35 , PATIENT IS MODERATELY OBESE, IT IS PARTLY CONTRIBUTED BY TESTOSTERONE THERAPY, HE HAS EXCESSIVE OBESE TISSUE AROUND THE NECK, AND OROPHARYNX. Code(s): E66.9 - Obesity, unspecified Coding Level of Care Code Est Pt Level 3 (97095) Diagnoses Complex sleep apnea syndrome G47.31 Obesity (BMI 30-39.9) E66.9
== END 2022-12-15 14:12 | disposition home or self-care (01) ==
PROVIDERS: PCP Internal Medicine; Visit Provider Internal Medicine
DX: G47.31 Primary central sleep apnea (principal); E66.9 Obesity, unspecified
CPT/HCPCS: 99213

== ENCOUNTER → 2022-12-15 13:43 | Outpatient (BNVA) | payer OTHER, SELFPAY | PROVIDERS: PCP Internal Medicine; Visit Provider Internal Medicine | DX: G47.31 Primary central sleep apnea (principal); E66.9 Obesity, unspecified; Z68.35 Body mass index [BMI] 35.0-35.9, adult | CPT/HCPCS: 99212 ==

== ENCOUNTER 2022-12-31 12:13 | Outpatient (REF) | payer OTHER, SELFPAY ==
[2022-12-31 13:22] LABS: MANUAL DIFF FLAG NO
[2022-12-31 13:37] LABS: Basophils Absolute Auto 0.1 X10*3/uL (0.0-0.2); Basophils Percent Auto 1.2 % (0-2); Eosinophils Absolute Auto 0.2 X10*3/uL (0.0-0.4); Eosinophils Percent Auto 2.7 % (0-4); Hematocrit 50.8 % (42.0-52.0); Hemoglobin 16.7 g/dl (14.0-18.0); Imm Gran Abs Auto 0.02 X10*3/uL (0.00-0.03); Imm Gran Pct Auto 0.2 % (0.0-0.4); Mean Corpuscular HGB Conc 32.9 g/dl (31.0-36.0); Mean Corpuscular Volume 85.1 fL (80.0-98.0); Mean Platelet Volume 11.3 fL (9.4-12.4); Monocytes Absolute Auto 0.6 X10*3/uL (0.1-1.2); Monocytes Percent Auto 6.4 % (2-11); Neutrophils Percent Auto 67.5 % (45-73); Platelet Count 249 X10*3/uL (160-400); Red Blood Count 5.97 X10*6/uL (4.60-5.80); Red Cell Distribution Width 12.9 % (11.0-16.0); White Blood Count 8.9 X10*3/uL (4.8-10.8)
[2022-12-31 13:59] LABS: Alanine Aminotransferase 34 U/L (0-40); Albumin Level 4.5 g/dL (3.5-5.0); Alkaline Phosphatase 73 U/L (39-117); Anion Gap 11 (12-20); Aspartate Amino Transferase 22 U/L (5-37); Bilirubin Total 0.5 mg/dL (0.0-1.0); Blood Urea Nitrogen 11 mg/dL (9-16); Calcium 9.6 mg/dL (8.4-10.2); Carbon Dioxide 29 mmol/L (22-29); Chloride 101 mmol/L (96-108); Estimated Glomerular Filt Rate > 60; Glucose Random 123 mg/dL (60-115); Potassium 4.3 mmol/L (3.3-5.1); Sodium 137 mmol/L (135-145)
[2022-12-31 16:13] LABS: Estimated Average Glucose 103 mg/dL; Hemoglobin A1c % 5.2 % (<6.0)
== END 2022-12-31 12:14 | disposition home or self-care (01) ==
LOC: HO.10HDL 12:13
PROVIDERS: Visit Provider Internal Medicine
DX: R51.9 Headache, unspecified (principal); K21.9 Gastro-esophageal reflux disease without esophagitis; R63.4 Abnormal weight loss
CPT/HCPCS: 36415; 80053; 83036; 85025

== ENCOUNTER 2023-04-19 14:20 | Outpatient (AMB) | payer OTHER, SELFPAY ==
--- NOTE | 2023-04-19 14:26 | A.OFFVIS_ITS ---
Intake Vital Signs 04/19/23 14:27 Height 5 ft 11 in Weight 242 lb BMI 33.7 BP 127/77 Blood Pressure Location Lt brachial Position Sitting Pulse 88 Pulse Source Doppler Pulse Oximetry (%) 98 Oxygen Delivery Method Room Air Intake Visit Reasons: coretta Intake Note: Patient is here for follow up on CORETTA, patient having trouble using CPAP machine Allergies No Known Allergies Allergy (Verified 04/19/23 14:37) Medication List - Last Reconciled 04/19/23 by Simran Davila MD albuterol sulfate 90 mcg/actuation (Ventolin HFA) 2 puffs inhalation Q6H PRN albuterol sulfate mg inhalation methadone 5 mg PO DAILY needle (disp) 18 G (BD Regular Bevel [place]) As directed needle (disp) 22 G (BD Regular Bevel [place]) As directed polyethylene glycol 3350 (Miralax) 17 grams PO DAILY syringe (disposable) (BD Luer-Kitty Syringe) Testosterone injection weekly syringe (disposable) (BD Luer-Kitty Syringe) Testosterone injection weekly syringe with needle (BD Luer-Kitty Syringe) As directed testosterone cypionate (Depo-Testosterone) 100 mg (0.5 mL) subcut QWEEK 28 days Do you need a note to return to daycare/school/sports/work: No HPI coretta HPI Details DENAE, 43 YEARS OLD, CASE OF COMPLEX SLEEP APNEA, IS USING CPAP WITH ASV MODE. HE USES AT LEAST FOR 7 HOURS AT NIGHT, AND HE IS STILL SOMEWHAT SLEEPY DURING THE DAYTIME SO ENDS UP USING ANOTHER 2 HOURS IN THE AFTERNOON. HE CLAIMS THAT THE CPAP IS HELPING BUT HE REMAINS KIND OF DISAPPOINTED BECAUSE HE IS STILL NOT FEELING ENERGETIC DURING THE DAYTIME. HIS METHADONE DOSE HAS BEEN CUT DOWN TO 5 MG A DAY. HE IS ALSO USING TESTOSTERONE INJECTION 100 MG Q 28 DAYS. HE IS MOSTLY HOME NOT WORKING , HE HAS TRY TO LOSE SOME WEIGHT. [facility] Medical History Complex sleep apnea syndrome Central sleep apnea comorbid with prescribed opioid use Testosterone deficiency in male CORETTA on CPAP Obesity (BMI 30-39.9) Hypogonadism in male Social History Patient Tobacco Use Status: Current everyday Tobacco user Cigarette Packs Per Day: 0.5 Cigarettes Per Day: 6 Review of Systems Const All systems reviewed & are unremarkable except as noted in HPI and below Eyes Reports no additional complaints ENT Reports no additional complaints Card Denies chest pain, Denies irregular heart rhythm, Denies leg edema and Denies dyspnea Resp Denies cough, Denies dyspnea and Denies wheezing GI Reports no additional complaints Reports change in libido and Reports erectile dysfunction (PATIENT ON TEST 0 STEROID ON THERAPY) Musc Reports no additional complaints Skin/Breast Reports system reviewed and no additional complaints, except as documented Neuro Reports no additional complaints Psych Reports no additional complaints and Reports change in libido Endo Reports change in libido and Reports other (BEING TREATED FOR HYPOGONADISM) Tremaine/Lymph Reports no additional complaints Aller/Immun Denies wheezing Physical Exam Vital Signs: Last Vital Signs Pulse 88 04/19/23 14:27 BP 127/77 04/19/23 14:27 Pulse Ox 98 04/19/23 14:27 Oxygen Delivery Method Room Air 04/19/23 14:27 BMI result Body Mass Index 33.7 Const Other: PATIENT HAS ROUND FACE AND OBESE NECK General: comfortable, no acute distress, alert and awake Orientation/consciousness: patient oriented x3 HEENT Other: MALLAMPATI CLASS 4 Head: Yes normal to inspection General nose exam: No nasal polyps present and No nasal discharge present Face and sinus: Yes sinuses nontender Mouth: oropharynx normal Throat: Yes posterior oropharynx normal Eyes General: appearance normal, both eyes and all related structures Neck Neck: Yes normal visual inspection, Yes no lymphadenopathy, Yes trachea midline, Yes no JVD and Yes other (NECK CIRCUMFERENCE 18-1/2 INCH) Thyroid: Thyroid normal Chest Chest palpation & inspection: normal inspection of the chest, normal palpation of entire chest wall and no tenderness Resp Effort & Inspection: normal respiratory effort Auscultation: clear to auscultation bilaterally, no crackles and no wheezes Cardio Palpation: normal PMI Rate: regular rate Rhythm: regular rhythm Heart sounds: no gallops and no murmurs Peripheral pulses: Peripheral pulses 2+ throughout GI Palpation (GI): Soft to palpation, nontender, No hepatosplenomegaly present and no masses Auscultation: normal bowel sounds Back/Spine/Pelvis Thoracic/Lumbar Spine: thoracic and lumbar spine normal to inspection Skin General skin exam: no rashes or lesions noted Neuro General: patient oriented x3 and no focal motor deficits Cranial nerves: Yes CN's II-XII intact bilaterally Extrem General: Yes normal to inspection, Yes no clubbing, cyanosis or edema and Yes no calf tenderness Psych Appearance: grossly normal and well kempt Speech and movement: Normal speech and movement present Results Reviewed Results Reviewed: COMPLIANCE DATA IS NOT DOWNLOADED. I CHECKED HIS IPHONE CPAP JOSE CARLOS. HE DOES USE EVERY NIGHT MORE THAN 7 HOURS PER NIGHT EXCEPT FOR ABOUT 2 NIGHTS. THERE IS NO SIGNIFICANT LEAK EXCEPT FOR ON 2 NIGHTS WHEN HE HAD TAKEN OFF THE MASS GOING TO THE BATHROOM. HE STILL HAS SOME RESIDUAL EVENTS BUT MOSTLY LESS THAN 5 PER HOUR. Assessment & Plan Assessment & Plan (1) Obesity (BMI 30-39.9): Comment: BMI=33.8 , PATIENT IS MODERATELY OBESE, IT IS PARTLY CONTRIBUTED BY TESTOSTERONE THERAPY, HE HAS EXCESSIVE OBESE TISSUE AROUND THE NECK, AND OROPHARYNX. Code(s): E66.9 - Obesity, unspecified Plan: JUST EXPLAINED TO HIM, ADVISED TO CUT DOWN THE INTAKE OF CALORIES AND KEEP ON LOSING WEIGHT EVEN SLOWLY. (2) Complex sleep apnea syndrome: Comment: THIS GENTLEMAN IS A CASE OF OBSTRUCTIVE SLEEP APNEA AND, TREATMENT EMERGENT CENTRAL APNEA. HE IS RESPONDING TO ASV MODE FAIRLY WELL. ONCE AGAIN I THOROUGHLY EXPLAINED TO HIM THE CAUSE AND NATURE OF HIS SLEEP APNEA AND USE OF ASV MODE. Code(s): G47.31 - Primary central sleep apnea Plan: HE IS ENCOURAGED TO USE THE CPAP FOR AT LEAST 6 HOURS EVERY NIGHT AT LEAST. ALSO ENCOURAGED TO LOSE WEIGHT. AND START DOING SOME DAILY. 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 HE IS GETTING TESTOSTERONE THERAPY. Code(s): E29.1 - Testicular hypofunction Plan: SHOULD BE NOTED THAT TESTOSTERONE THERAPY IS A COMMON RISK FACTOR FOR OBSTRUCTIVE SLEEP APNEA, Coding Level of Care Code Est Pt Level 3 (35867) Diagnoses Obesity (BMI 30-39.9) E66.9 Complex sleep apnea syndrome G47.31 Central sleep apnea comorbid with prescribed opioid use F11.90; G47.37 Testosterone deficiency in male E29.1
[2023-04-19 14:27] VITALS: BP 127/77; PULSE 88; O2SAT 98; BMI 33.7
== END 2023-04-19 15:01 | disposition home or self-care (01) ==
PROVIDERS: PCP Internal Medicine; Visit Provider Internal Medicine
DX: E66.9 Obesity, unspecified (principal); G47.31 Primary central sleep apnea; F11.90 Opioid use, unspecified, uncomplicated; G47.37 Central sleep apnea in conditions classified elsewhere; E29.1 Testicular hypofunction
CPT/HCPCS: 99213

== ENCOUNTER → 2023-04-19 14:20 | Outpatient (BNVA) | payer OTHER, SELFPAY | PROVIDERS: PCP Internal Medicine; Visit Provider Internal Medicine | DX: G47.31 Primary central sleep apnea (principal); G47.37 Central sleep apnea in conditions classified elsewhere; E66.9 Obesity, unspecified; E29.1 Testicular hypofunction; F11.20 Opioid dependence, uncomplicated; Z68.33 Body mass index [BMI] 33.0-33.9, adult | CPT/HCPCS: 99212 ==

== ENCOUNTER 2023-04-20 15:38 | Outpatient (REF) | payer OTHER, SELFPAY ==
--- NOTE | ~2023-04-20 | XR_ITS ---
EXAMINATION: XR RIBS, LEFT CLINICAL INFORMATION: Left rib pain COMPARISON: None available. TECHNIQUE: 3 views of the left ribs were obtained. FINDINGS: Lungs are clear. No consolidation, pneumothorax, or pleural effusion. The cardiomediastinal silhouette and pulmonary vasculature are normal. A radiopaque skin markers placed in the interspace between the left ninth and 10th posterior ribs corresponding to the area of pain indicated by the patient. Osseous structures are unremarkable. No displaced rib fracture. XR/XR ribs LT min 3V w CXR1V IMPRESSION: No displaced left rib fracture.
[2023-04-20 15:58] LABS: MANUAL DIFF FLAG NO
[2023-04-20 17:34] LABS: Basophils Absolute Auto 0.1 X10*3/uL (0.0-0.2); Eosinophils Absolute Auto 0.2 X10*3/uL (0.0-0.4); Eosinophils Percent Auto 2.2 % (0-4); Hematocrit 45.1 % (42.0-52.0); Hemoglobin 14.9 g/dl (14.0-18.0); Imm Gran Abs Auto 0.05 X10*3/uL (0.00-0.03); Imm Gran Pct Auto 0.5 % (0.0-0.4); Lymphocytes Absolute Auto 2.5 X10*3/uL (1.2-4.9); Lymphocytes Percent Auto 23.6 % (20-40); Mean Corpuscular Hemoglobin 27.5 pg (27.0-33.0); Mean Corpuscular Volume 83.4 fL (80.0-98.0); Mean Platelet Volume 11.3 fL (9.4-12.4); Monocytes Absolute Auto 0.8 X10*3/uL (0.1-1.2); Monocytes Percent Auto 7.3 % (2-11); Neutrophils Absolute Auto 6.8 x10*3/uL (2.0-8.3); Neutrophils Percent Auto 65.4 % (45-73); Platelet Count 241 X10*3/uL (160-400); Red Blood Count 5.41 X10*6/uL (4.60-5.80); Red Cell Distribution Width 13.2 % (11.0-16.0); White Blood Count 10.4 X10*3/uL (4.8-10.8)
[2023-04-20 17:38] LABS: Estimated Average Glucose 111 mg/dL; Hemoglobin A1c % 5.5 % (<6.0)
[2023-04-20 17:57] LABS: Alanine Aminotransferase 28 U/L (0-40); Albumin Level 4.3 g/dL (3.5-5.0); Alkaline Phosphatase 67 U/L (39-117); Anion Gap 9 (12-20); Aspartate Amino Transferase 16 U/L (5-37); Bilirubin Total 0.4 mg/dL (0.0-1.0); Blood Urea Nitrogen 7 mg/dL (9-16); Calcium 9.2 mg/dL (8.4-10.2); Carbon Dioxide 31 mmol/L (22-29); Chloride 102 mmol/L (96-108); Cholesterol 195 mg/dL (<200); Estimated Glomerular Filt Rate > 60; Glucose Random 105 mg/dL (60-115); Potassium 3.6 mmol/L (3.3-5.1); Sodium 138 mmol/L (135-145); Total Protein 7.4 g/dL (6.5-8.0)
== END 2023-04-20 15:39 | disposition home or self-care (01) ==
LOC: HO.LAB 15:38
PROVIDERS: PCP Internal Medicine; Visit Provider Internal Medicine
DX: R73.03 Prediabetes (principal); K21.9 Gastro-esophageal reflux disease without esophagitis; R07.81 Pleurodynia
CPT/HCPCS: 36415; 71101; 80053; 82465; 83036; 85025

== ENCOUNTER 2023-06-07 11:05 | Outpatient (AMB) | payer OTHER, SELFPAY ==
--- NOTE | 2023-06-07 11:08 | MHC.OFFVIS ---
Intake Visit Reasons: 6M Follow Up(Erectile Dys)Confirmed Intake Note: Patient is Present for Follow Up Urology Medication: Testosterone Antibiotic Allergies: None Blood Thinners: None Allergies No Known Allergies Allergy (Verified 06/07/23 11:11) HPI Comments Details: Thang is a pleasant male. He is a patient of Dr. Ayers. He is seen for the following urologic conditions - hypogonadism Medication works when he is consistent dosing Refill provided with 18 gauge needles in 22 gauge needles were injection Injection Day: Tuesday Lab Day: Tuesday Hypogonadism Low T secondary to longstanding methadone Current doses 0.5 cc weekly No family history prostate cancer Therapy performed by injection Laboratories 03/06 T33, 03/07 T 588 P 0.4 H 49, 06/06 T 158 P 0.4, 11/06 1026 0.6 49, Therapeutic plan continue injections PFSH Medical History Complex sleep apnea syndrome Central sleep apnea comorbid with prescribed opioid use Testosterone deficiency in male CORETTA on CPAP Obesity (BMI 30-39.9) Hypogonadism in male Social History Patient Tobacco Use Status: Current everyday Tobacco user Cigarette Packs Per Day: 0.5 Cigarettes Per Day: 6 Review of Systems Const Denies chills and Denies fever(s) Card Reports no additional complaints and Denies syncope Resp Denies cough GI Denies abdominal pain and Denies heartburn Reports as per HPI and Denies change in libido Neuro Denies syncope Psych Denies change in libido Endo Denies change in libido Physical Exam Const General: cooperative, healthy appearing, comfortable and no acute distress Orientation/consciousness: patient oriented x3 HEENT Face and sinus: Yes normal facial exam Mouth: moist mucous membranes Neck Neck: Yes normal visual inspection, Yes full ROM and Yes trachea midline Chest Chest palpation & inspection: normal inspection of the chest Resp Effort & Inspection: normal respiratory effort, able to speak in complete sentences and no respiratory distress GI Inspection: Yes normal to inspection Back/Spine/Pelvis Cervical Spine: normal cervical lordosis Thoracic/Lumbar Spine: thoracic and lumbar spine normal to inspection Skin General skin exam: no rashes or lesions noted Neuro General: patient oriented x3, gait normal, tone normal and moves all extremities Extrem General: Yes normal to inspection and Yes capillary refill normal Assessment & Plan Assessment & Plan (1) Testosterone deficiency in male: Comment: FOR HIS DIAGNOSIS OF HYPOGONADISM. HE IS GETTING TESTOSTERONE THERAPY. Code(s): E29.1 - Testicular hypofunction Category: Medical Plan Six-month follow-up labs Orders: Orders Prostate Specific Antigen 6 Months E29.1 - Testicular hypofunction Testosterone, Total 6 Months E29.1 - Testicular hypofunction Complete Blood Count no Diff 6 Months E29.1 - Testicular hypofunction Medications: New needle (disp) 22 G As directed - for injection of testosterone 100 ea 0RF E29.1 - Testicular hypofunction Patient Instructions: Imaging studies, laboratory and physical exam results were discussed and reviewed in detail. No major barriers to patient understanding were identified. An opportunity to ask questions regarding the treatment plan was provided. All questions were answered. The patient expressed understanding and agreement with the above treatment plan. The patient is aware they should contact our office by phone for worsening of their current condition or the appearance of new urologic symptoms. Compliance is encouraged with any medications and followup testing that is ordered. It is a privilege to participate in the urologic care of your patient. If you have any questions or concerns regarding treatment for the above conditions, or other urologic issues, please do not hesitate to contact me. The office telephone contact is [phone]. This note is constructed using voice recognition software. While every effort has been made to ensure accuracy information technology security analyst errors may have been included. Yours sincerely, Dr Regan Christianson MD, [facility] - Urology Providers of Expert, Compassionate Care for the Genitourinary System Coding Level of Care Code Est Pt Level 4 (01574) Diagnoses Testosterone deficiency in male E29.1
== END 2023-06-07 11:20 | disposition home or self-care (01) ==
LOC: HO.HUSH 11:05
PROVIDERS: PCP Internal Medicine; Visit Provider Urology
DX: E29.1 Testicular hypofunction (principal)
CPT/HCPCS: 99214

== ENCOUNTER → 2023-06-07 11:05 | Outpatient (BNVA) | payer OTHER, SELFPAY | PROVIDERS: PCP Internal Medicine; Visit Provider Urology | DX: E29.1 Testicular hypofunction (principal) | CPT/HCPCS: 99212 ==

== ENCOUNTER 2023-07-21 14:32 | Outpatient (AMB) | payer OTHER, SELFPAY ==
[2023-07-21 14:37] VITALS: BP 130/70; PULSE 90; O2SAT 97; BMI 34.0
--- NOTE | 2023-07-21 14:37 | MHC.OFFVIS ---
Vital Signs 07/21/23 14:37 Height 5 ft 11 in Weight 243 lb 9.773 oz BMI 34.0 BP 130/70 Blood Pressure Location Lt brachial Position Sitting Pulse 90 Pulse Source Pulse Oximeter Pulse Oximetry (%) 97 Oxygen Delivery Method Room Air Intake Visit Reasons: coretta Intake Note: pt is here for follow up and states he is more alert in am, but still fatigue and mentally drained by afternoon. Allergies No Known Allergies Allergy (Verified 07/21/23 14:45) Medication List - Last Reconciled 07/21/23 by Simran Davila MD albuterol sulfate 90 mcg/actuation (Ventolin HFA) 2 puffs inhalation Q6H PRN albuterol sulfate mg inhalation linaclotide (Linzess) 72 mcg PO DAILY methadone 5 mg PO DAILY needle (disp) 18 G (BD Regular Bevel [place]) As directed needle (disp) 23 gauge (BD Integra Needle) As directed for weekly Testosterone injection syringe (disposable) (BD Luer-Kitty Syringe) Testosterone injection weekly testosterone cypionate (Depo-Testosterone) 100 mg (0.5 mL) subcut QWEEK 28 days Do you need a note to return to daycare/school/sports/work: No HPI HPI coretta: Details: 43 YEARS OLD GENTLEMAN WITH MODERATE OBESITY, IS A CASE OF CENTRAL SLEEP APNEA WHICH IS BEING TREATED WITH ASV MODE ( AIR CURVE 10 ASV ) HE IS USING THE CPAP EVERY NIGHT AND SLEEPS WELL. HE WAKES UP MORE REFRESHED IN THE MORNING HOURS. BUT IN THE AFTERNOON HE STILL FEELS SOMEWHAT SLEEPY AND TIRED. HIS CURRENT DOSE OF METHADONE IS 36 MG DAILY, IT IS BEING REDUCE SLOWLY. HE IS STILL INJECTS DEPO-TESTOSTERONE 100 MG SUBQ Q 28 DAYS . HE HAS NOT BEEN ABLE TO LOSE MUCH WEIGHT. [facility] Medical History Complex sleep apnea syndrome Central sleep apnea comorbid with prescribed opioid use Testosterone deficiency in male CORETTA on CPAP Obesity (BMI 30-39.9) Hypogonadism in male Social History Patient Tobacco Use Status: Current everyday Tobacco user Cigarette Packs Per Day: 0.5 Cigarettes Per Day: 6 Review of Systems Const All systems reviewed & are unremarkable except as noted in HPI and below Eyes Reports no additional complaints ENT Reports no additional complaints Card Denies chest pain, Denies irregular heart rhythm, Denies leg edema and Denies dyspnea Resp Denies cough, Denies dyspnea and Denies wheezing GI Reports no additional complaints Reports change in libido and Reports erectile dysfunction (PATIENT ON TEST 0 STEROID ON THERAPY) Musc Reports no additional complaints Skin/Breast Reports system reviewed and no additional complaints, except as documented Neuro Reports no additional complaints Psych Reports no additional complaints and Reports change in libido Endo Reports change in libido and Reports other (BEING TREATED FOR HYPOGONADISM) Tremaine/Lymph Reports no additional complaints Aller/Immun Denies wheezing Physical Exam Vital Signs: Last Vital Signs Pulse 90 07/21/23 14:37 BP 130/70 07/21/23 14:37 Pulse Ox 97 07/21/23 14:37 Oxygen Delivery Method Room Air 07/21/23 14:37 BMI result Body Mass Index 34.0 Const Other: PATIENT HAS ROUND FACE AND OBESE NECK General: comfortable, no acute distress, alert and awake Orientation/consciousness: patient oriented x3 HEENT Other: MALLAMPATI CLASS 4 Head: Yes normal to inspection General nose exam: No nasal polyps present and No nasal discharge present Face and sinus: Yes sinuses nontender Mouth: oropharynx normal Throat: Yes posterior oropharynx normal Eyes General: appearance normal, both eyes and all related structures Neck Neck: Yes normal visual inspection, Yes no lymphadenopathy, Yes trachea midline, Yes no JVD and Yes other (NECK CIRCUMFERENCE 18-1/2 INCH) Thyroid: Thyroid normal Chest Chest palpation & inspection: normal inspection of the chest, normal palpation of entire chest wall and no tenderness Resp Effort & Inspection: normal respiratory effort Auscultation: clear to auscultation bilaterally, no crackles and no wheezes Cardio Palpation: normal PMI Rate: regular rate Rhythm: regular rhythm Heart sounds: no gallops and no murmurs Peripheral pulses: Peripheral pulses 2+ throughout GI Palpation (GI): Soft to palpation, nontender, No hepatosplenomegaly present and no masses Auscultation: normal bowel sounds Back/Spine/Pelvis Thoracic/Lumbar Spine: thoracic and lumbar spine normal to inspection Skin General skin exam: no rashes or lesions noted Neuro General: patient oriented x3 and no focal motor deficits Cranial nerves: Yes CN's II-XII intact bilaterally Extrem General: Yes normal to inspection, Yes no clubbing, cyanosis or edema and Yes no calf tenderness Psych Appearance: grossly normal and well kempt Speech and movement: Normal speech and movement present Results Reviewed Results Reviewed: COMPLIANCE REPORT FOR THE LAST 30 NIGHTS IS REVIEWED. HE HAS USED 30/30 NIGHTS, 100%. AVERAGE USE IT PER NIGHT 6 HOURS 40 MINUTE. THERE IS SLIGHT AIR LEAK RESIDUAL AHI 3.3 Assessment & Plan Assessment & Plan (1) Complex sleep apnea syndrome: Comment: THIS GENTLEMAN IS A CASE OF OBSTRUCTIVE SLEEP APNEA AND, TREATMENT EMERGENT CENTRAL APNEA. HE IS BEING TREATED WITH ASV MODE AND RESPONDING FAIRLY WELL. Code(s): G47.31 - Primary central sleep apnea Category: Medical Plan: COMMENDED FOR GOOD COMPLIANCE. ONCE AGAIN I THOROUGHLY EXPLAINED TO HIM THE CAUSE AND NATURE OF HIS SLEEP APNEA AND USE OF ASV MODE. HE STILL HAS SOME RESIDUAL FATIGUE AND SLEEPINESS, I THINK THIS IS DUE TO HIS METHADONE TREATMENT, HE WAS ASKING IF HE IS CANDIDATE FOR AGENTS LIKE PROVIGIL. I ADVISE THAT HE SHOULD FOCUS MORE ON GRADUAL REDUCTION IN THE DOSE OF METHADONE. AND ALSO ADVISE THAT HE SHOULD TRY TO STAY PHYSICALLY ACTIVE DURING THE DAYTIME, AND TRY TO LOSE WEIGHT. (2) Testosterone deficiency in male: Comment: FOR HIS DIAGNOSIS OF HYPOGONADISM. HE IS GETTING TESTOSTERONE THERAPY. Code(s): E29.1 - Testicular hypofunction Category: Medical Plan: I EXPLAINED TO HIM THAT TEST OR STEROID ON THERAPY DOES CONTRIBUTE TO SLEEP APNEA. ANYWAY HIS SLEEP APNEA IS BEING TREATED. (3) CORETTA on CPAP: Comment: PATIENT HAS HAD OBSTRUCTIVE SLEEP APNEA, BEING TREATED WITH CPAP, WITH THE USE OF CPAP, HE STILL TIRED AND SLEEPY DURING. THE DAYTIME CPAP TITRATION STUDY SHOWED TREATMENT EMERGENT CENTRAL SLEEP APNEA. FOR THAT REASON HE HAD TITRATION WITH ASV MODE, AND IT DID ELIMINATE OBSTRUCTIVE WELL CENTRAL APNEA. NOW WE WILL PRESCRIBE HOME VENTILATOR DEVICE( TRELEGY ) WITH ASV/AUTO MODE SETTINGS: BACKUP RATE: AUTO FL MAX 30 PS MINIMUM 4, PS MAXIMUM 15. EPAP MIN 4 EPAP MAX 15 VT 400 Code(s): G47.33 - Obstructive sleep apnea (adult) (pediatric); Z99.89 - Dependence on other enabling machines and devices Category: Medical Plan: CONTINUE USING THE CPAP WITH ASV MODE REGULARLY EVERY NIGHT. (4) Obesity (BMI 30-39.9): Comment: BMI=34.0 , PATIENT IS MODERATELY OBESE, IT IS PARTLY CONTRIBUTED BY TESTOSTERONE THERAPY, HE HAS EXCESSIVE OBESE TISSUE AROUND THE NECK, AND OROPHARYNX. Code(s): E66.9 - Obesity, unspecified Category: Medical Plan: ADVISED AND STRESSED THAT HE SHOULD TRY TO BE MORE ACTIVE AND TRY TO LOSE SOME WEIGHT Coding Level of Care Code Est Pt Level 3 (39023) Diagnoses Complex sleep apnea syndrome G47.31 Testosterone deficiency in male E29.1 CORETTA on CPAP G47.33; Z99.89 Obesity (BMI 30-39.9) E66.9
== END 2023-07-21 14:56 | disposition home or self-care (01) ==
PROVIDERS: PCP Internal Medicine; Visit Provider Internal Medicine
DX: G47.31 Primary central sleep apnea (principal); E29.1 Testicular hypofunction; G47.33 Obstructive sleep apnea (adult) (pediatric); Z99.89 Dependence on other enabling machines and devices; E66.9 Obesity, unspecified
CPT/HCPCS: 99213

== ENCOUNTER → 2023-07-21 14:32 | Outpatient (BNVA) | payer OTHER, SELFPAY | PROVIDERS: PCP Internal Medicine; Visit Provider Internal Medicine | DX: G47.33 Obstructive sleep apnea (adult) (pediatric) (principal); G47.31 Primary central sleep apnea; E29.1 Testicular hypofunction; E66.9 Obesity, unspecified; Z99.89 Dependence on other enabling machines and devices; Z68.34 Body mass index [BMI] 34.0-34.9, adult | CPT/HCPCS: 99212 ==

== ENCOUNTER 2023-08-28 14:57 | Emergency (ER) | payer OTHER, SELFPAY ==
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
--- NOTE | ~2023-08-28 | XR_ITS ---
EXAMINATION: XR TIBIA AND FIBULA, RIGHT CLINICAL INFORMATION: Leg pain COMPARISON: None available. TECHNIQUE: AP and lateral views of the right tibia and fibula were obtained. FINDINGS: No evidence of acute fracture or malalignment. Visualized ankle and knee joint spaces are grossly preserved. Normal bone mineralization. Soft tissues unremarkable. XR/XR tibia fibula RT 2V IMPRESSION: Normal right tibia and fibula.
--- NOTE | ~2023-08-28 | XR_ITS ---
EXAMINATION: XR LUMBOSACRAL SPINE CLINICAL INFORMATION: Low back pain COMPARISON: None available. TECHNIQUE: Three views of the lumbosacral spine. FINDINGS: There are 5 nonrib-bearing lumbar type vertebra. No evidence of acute fracture or malalignment. Vertebral body heights are maintained. Disc spaces are preserved. Tiny vertebral body endplate osteophytes at superior L3 and L4. Soft tissues are unremarkable. XR/XR lumbar spine 2-3V IMPRESSION: Minimal degenerative lumbar spondylosis without plain radiographic evidence of acute fracture or malalignment.
[2023-08-28 15:01] VITALS: BP 146/84; PULSE 76; RESP 20; TEMP 36.6; O2SAT 97; BMI 33.3
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
[2023-08-28 16:02] VITALS: BP 144/79; PULSE 81; RESP 17; TEMP 36; O2SAT 96
[2023-08-28 18:17] VITALS: BP 144/79; PULSE 81; RESP 17; TEMP 36; O2SAT 96
== END 2023-08-28 18:17 | disposition home or self-care (01) ==
PROVIDERS: Emergency Provider Emergency Medicine; PCP Internal Medicine
DX: S13.4XXA Sprain of ligaments of cervical spine, initial encounter (principal); S39.012A Strain of muscle, fascia and tendon of lower back, initial encounter; S80.811A Abrasion, right lower leg, initial encounter; M54.2 Cervicalgia; R51.9 Headache, unspecified; V47.5XXA Car driver injured in collision with fixed or stationary object in traffic accident, initial encounter; Y93.9 Activity, unspecified; Y92.488 Other paved roadways as the place of occurrence of the external cause; Y99.8 Other external cause status
CPT/HCPCS: 70450; 72100; 72125; 73590; 99284

== ENCOUNTER 2023-11-24 14:12 | Outpatient (AMB) | payer OTHER, SELFPAY ==
--- NOTE | 2023-11-24 14:19 | A.OFFVIS_ITS ---
Vital Signs 11/24/23 14:32 Height 5 ft 11 in Weight 238 lb BMI 33.2 BP 130/62 Blood Pressure Location Lt brachial Position Sitting Pulse 89 Pulse Source Pulse Oximeter Pulse Oximetry (%) 97 Oxygen Delivery Method Room Air Intake Visit Reasons: Obstructive sleep apnea Intake Note: pt is here for follow up of sleep apnea, he does feel better, he feels his memory is not good, and fatigue still a lot. Wedding Planner Required: No Allergies No Known Allergies Allergy (Verified 11/24/23 14:56) Medication List - Last Reconciled 11/24/23 by Simran Davila MD albuterol sulfate 90 mcg/actuation (Ventolin HFA) 2 puffs inhalation Q6H PRN albuterol sulfate mg inhalation methadone 5 mg PO DAILY needle (disp) 18 G (BD Regular Bevel [place]) As directed needle (disp) 23 gauge (BD Integra Needle) As directed for weekly Testosterone injection syringe (disposable) (BD Luer-Kitty Syringe) Testosterone injection weekly testosterone cypionate (Depo-Testosterone) 100 mg (0.5 mL) subcut QWEEK 28 days Do you need a note to return to daycare/school/sports/work: No HPI HPI Obstructive sleep apnea: Details: 43 YEARS OLD GENTLEMAN WITH MODERATE OBESITY, IS A CASE OF CENTRAL SLEEP APNEA WHICH IS BEING TREATED WITH ASV MODE ( AIR CURVE 10 ASV ) HE IS USING THE CPAP EVERY NIGHT AND SLEEPS WELL. HE WAKES UP MORE REFRESHED IN THE MORNING HOURS. BUT IN THE AFTERNOON HE STILL FEELS SOMEWHAT SLEEPY AND TIRED. HIS CURRENT DOSE OF METHADONE IS 23.5 MG DAILY, IT IS BEING REDUCE SLOWLY. HE IS STILL INJECTING DEPO-TESTOSTERONE 100 MG SUBQ Q 28 DAYS . HE HAS NOT BEEN ABLE TO LOSE MUCH WEIGHT. [facility] Medical History Complex sleep apnea syndrome Central sleep apnea comorbid with prescribed opioid use Testosterone deficiency in male CORETTA on CPAP Obesity (BMI 30-39.9) Hypogonadism in male Social History Patient Tobacco Use Status: Current everyday Tobacco user Cigarette Packs Per Day: 0.5 Cigarettes Per Day: 7 Review of Systems Const All systems reviewed & are unremarkable except as noted in HPI and below Eyes Reports no additional complaints ENT Reports no additional complaints Card Denies chest pain, Denies irregular heart rhythm, Denies leg edema and Denies dyspnea Resp Denies cough, Denies dyspnea and Denies wheezing GI Reports no additional complaints Reports change in libido and Reports erectile dysfunction (PATIENT ON TEST 0 STEROID ON THERAPY) Musc Reports no additional complaints Skin/Breast Reports system reviewed and no additional complaints, except as documented Neuro Reports no additional complaints Psych Reports no additional complaints and Reports change in libido Endo Reports change in libido and Reports other (BEING TREATED FOR HYPOGONADISM) Tremaine/Lymph Reports no additional complaints Aller/Immun Denies wheezing Physical Exam Const Other: PATIENT HAS ROUND FACE AND OBESE NECK General: comfortable, no acute distress, alert and awake Orientation/consciousness: patient oriented x3 HEENT Other: MALLAMPATI CLASS 4 Head: Yes normal to inspection General nose exam: No nasal polyps present and No nasal discharge present Face and sinus: Yes sinuses nontender Mouth: oropharynx normal Throat: Yes posterior oropharynx normal Eyes General: appearance normal, both eyes and all related structures Neck Neck: Yes normal visual inspection, Yes no lymphadenopathy, Yes trachea midline, Yes no JVD and Yes other (NECK CIRCUMFERENCE 18-1/2 INCH) Thyroid: Thyroid normal Chest Chest palpation & inspection: normal inspection of the chest, normal palpation of entire chest wall and no tenderness Resp Effort & Inspection: normal respiratory effort Auscultation: clear to auscultation bilaterally, no crackles and no wheezes Cardio Palpation: normal PMI Rate: regular rate Rhythm: regular rhythm Heart sounds: no gallops and no murmurs Peripheral pulses: Peripheral pulses 2+ throughout GI Palpation (GI): Soft to palpation, nontender, No hepatosplenomegaly present and no masses Auscultation: normal bowel sounds Back/Spine/Pelvis Thoracic/Lumbar Spine: thoracic and lumbar spine normal to inspection Skin General skin exam: no rashes or lesions noted Neuro General: patient oriented x3 and no focal motor deficits Cranial nerves: Yes CN's II-XII intact bilaterally Extrem General: Yes normal to inspection, Yes no clubbing, cyanosis or edema and Yes no calf tenderness Psych Appearance: grossly normal and well kempt Speech and movement: Normal speech and movement present Results Reviewed Results Reviewed: COMPLIANCE FOR THE LAST 30 NIGHTS IS REVIEWED. HE HAS USED 30/30 NIGHTS, 100%. AVERAGE USE IT PER NIGHT 7 HOURS 9 MINUTES. HE IS ON ASV MODE, EPAP=9 Min PS = 3 CMs MAX PS= 15 CMs THERE IS SOME AIR LEAK RESIDUAL AHI 2.5 Assessment & Plan Assessment & Plan (1) Complex sleep apnea syndrome: Comment: THIS GENTLEMAN IS A CASE OF OBSTRUCTIVE SLEEP APNEA AND,TREATMENT EMERGENT CENTRAL APNEA. HE IS BEING TREATED WITH ASV MODE AND RESPONDING FAIRLY WELL. USES CPAP EVERY NIGHT AND SLEEPS WELL. COMPLIANCE IS EXCELLENT . * IT SHOULD BE NOTED THAT 2 THE CENTRAL APNEA IS PROBABLY CAUSED DUE TO HIS TREATMENT WITH METHADONE . Code(s): G47.31 - Primary central sleep apnea Category: Medical Plan: CONTINUE USE OF CPAP WITH ASV MODE (2) CORETTA on CPAP: Comment: PATIENT HAS HAD OBSTRUCTIVE SLEEP APNEA, BEING TREATED WITH CPAP, CPAP TITRATION STUDY SHOWED TREATMENT EMERGENT CENTRAL SLEEP APNEA. FOR THAT REASON HE HAD TITRATION WITH ASV MODE, AND IT DID ELIMINATE OBSTRUCTIVE WELL CENTRAL APNEA. NOW HE IS ON CPAP WITH ASV MODE AND IS DOING VERY WELL. COMPLIANCE IS GOOD AND RESIDUAL AHI ONLY 2.5. Code(s): G47.33 - Obstructive sleep apnea (adult) (pediatric); Z99.89 - Dependence on other enabling machines and devices Category: Medical Plan: DISCUSSED WITH HIM ABOUT COMPLIANCE. ADVISED TO CONTINUE USING THE CPAP EVERY NIGHT. (3) Obesity (BMI 30-39.9): Comment: BMI=33.2 , PATIENT IS MODERATELY OBESE, IT IS PARTLY CONTRIBUTED BY TESTOSTERONE THERAPY, HE HAS EXCESSIVE OBESE TISSUE AROUND THE NECK, AND OROPHARYNX. Code(s): E66.9 - Obesity, unspecified Category: Medical Plan: ENCOURAGED HIM TO CUT DOWN THE CALORIES INTAKE, DO REGULAR EXERCISE. AND TRY TO LOSE SOME WEIGHT . Coding Level of Care Code Est Pt Level 3 (98312) Diagnoses Complex sleep apnea syndrome G47.31 CORETTA on CPAP G47.33; Z99.89 Obesity (BMI 30-39.9) E66.9
[2023-11-24 14:32] VITALS: BP 130/62; PULSE 89; O2SAT 97; BMI 33.2
== END 2023-11-24 14:54 | disposition home or self-care (01) ==
PROVIDERS: PCP Internal Medicine; Visit Provider Internal Medicine
DX: G47.31 Primary central sleep apnea (principal); G47.33 Obstructive sleep apnea (adult) (pediatric); Z99.89 Dependence on other enabling machines and devices; E66.9 Obesity, unspecified
CPT/HCPCS: 99213

== ENCOUNTER → 2023-11-24 14:12 | Outpatient (BNVA) | payer OTHER, SELFPAY | PROVIDERS: PCP Internal Medicine; Visit Provider Internal Medicine | DX: G47.33 Obstructive sleep apnea (adult) (pediatric) (principal); G47.31 Primary central sleep apnea; E66.9 Obesity, unspecified; Z68.33 Body mass index [BMI] 33.0-33.9, adult; Z99.89 Dependence on other enabling machines and devices | CPT/HCPCS: 99212 ==

== ENCOUNTER 2023-12-01 16:36 | Outpatient (REF) | payer OTHER, SELFPAY ==
[2023-12-01 17:08] LABS: Hematocrit 49.6 % (42.0-52.0); Hemoglobin 16.7 g/dl (14.0-18.0); Mean Corpuscular HGB Conc 33.7 g/dl (31.0-36.0); Mean Corpuscular Hemoglobin 27.8 pg (27.0-33.0); Mean Corpuscular Volume 82.7 fL (80.0-98.0); Mean Platelet Volume 10.6 fL (9.4-12.4); Platelet Count 245 X10*3/uL (160-400); Red Cell Distribution Width 12.5 % (11.0-16.0); White Blood Count 9.7 X10*3/uL (4.8-10.8)
[2023-12-01 17:55] LABS: Prostate Specific Antigen 0.71 ng/mL (<0.05-4.0)
[2023-12-05 17:22] LABS: Testosterone, Total 676 ng/dL (250-1100)
== END 2023-12-01 16:37 | disposition home or self-care (01) ==
LOC: HO.LAB 16:36
PROVIDERS: PCP Internal Medicine; Visit Provider Urology
DX: E29.1 Testicular hypofunction (principal)
CPT/HCPCS: 36415; 84153; 84403; 85027

== ENCOUNTER 2023-12-07 13:47 | Outpatient (AMB) | payer OTHER, SELFPAY ==
--- NOTE | 2023-12-07 13:48 | A.OFFVIS_ITS ---
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 He is a patient of Dr. Ayers. He is seen for the following urologic conditions - hypogonadism - erectile dysfunction Telemedicine Evaluation 15 min Consultation [employer] Video Medication works when he is consistent dosing - lab work and range Refill provided with 18 gauge needles in 22 gauge needles were injection Injection Day: Tuesday Lab Day: Tuesday Also brought up erectile dysfunction. Reports some degree of maintenance difficulty with premature ejaculation. Trial tadalafil 5 mg daily Hypogonadism Low T secondary to longstanding methadone Concomitant obstructive sleep apnea on CPAP Current doses 0.5 cc weekly No family history prostate cancer Therapy performed by injection Laboratories 03/06 T33, 03/07 T 588 P 0.4 H 49, 06/06 T 158 P 0.4, 11/06 1026 0.6 49, 12/07 T 676 P 0.7 Therapeutic plan continue injections PFS Medical History Complex sleep apnea syndrome Central sleep apnea comorbid with prescribed opioid use Testosterone deficiency in male CORETTA on CPAP Obesity (BMI 30-39.9) Hypogonadism in male Social History Patient Tobacco Use Status: Current everyday Tobacco user Cigarette Packs Per Day: 0.5 Cigarettes Per Day: 7 Review of Systems Const All systems reviewed & are unremarkable except as noted in HPI and below Reports no additional complaints Resp Reports no additional complaints GI Reports no additional complaints Reports as per HPI Musc Reports no additional complaints Physical Exam Telemedicine evaluation Appropriate responses Regular breathing rate and rhythm HEENT Head: Yes normal to inspection Ears: hearing grossly normal bilaterally Eyes General: appearance normal, both eyes and all related structures Neck Neck: Yes normal visual inspection Chest Chest palpation & inspection: normal inspection of the chest Resp Effort & Inspection: normal respiratory effort and able to speak in complete sentences Telehealth Telehealth Telehealth Platform: [facility] Location of provider rendering services: practice address Location of patient: address on file Patient Identification confirmed using: Name, : Yes Telehealth method: video Patient verbally consented to treatment: Yes Patient verbally consented to billing insurance company: Yes Patient informed of any privacy concerns related to visit: Yes Minutes spent on Phone/Video with Pt.: 15 Assessment & Plan Assessment & Plan (1) Hypogonadism in male: Code(s): E29.1 - Testicular hypofunction Category: Medical (2) Erectile dysfunction: Code(s): N52.9 - Male erectile dysfunction, unspecified Category: Medical Plan Three-month follow-up tadalafil trial Medications: New tadalafil BIN [id number] [facility] Group DR33 5 mg PO DAILY 90 days 90 tabs 0RF sexual activity N52.9 - Male erectile dysfunction, unspecified Refilled testosterone cypionate (Depo-Testosterone) 100 mg (0.5 mL) subcut QWEEK 28 days 2 mL 5RF E29.1 - Testicular hypofunction Patient Instructions: Imaging studies, laboratory and physical exam results were discussed and reviewed in detail. No major barriers to patient understanding were identified. An opportunity to ask questions regarding the treatment plan was provided. All questions were answered. The patient expressed understanding and agreement with the above treatment plan. The patient is aware they should contact our office by phone for worsening of their current condition or the appearance of new urologic symptoms. Compliance is encouraged with any medications and followup testing that is ordered. It is a privilege to participate in the urologic care of your patient. If you have any questions or concerns regarding treatment for the above conditions, or other urologic issues, please do not hesitate to contact me. The office telephone contact is [phone]. This note is constructed using voice recognition software. While every effort has been made to ensure accuracy supervisor ordnance truck installation errors may have been included. Yours sincerely, Dr Regan Christianson MD, [facility] - Urology Providers of Expert, Compassionate Care for the Genitourinary System Coding Level of Care Code Tele Est Pt Level 4 (16630) Diagnoses Hypogonadism in male E29.1 Erectile dysfunction N52.9
== END 2023-12-07 14:16 | disposition home or self-care (01) ==
LOC: HO.HUSH 13:47
PROVIDERS: PCP Internal Medicine; Visit Provider Urology
DX: E29.1 Testicular hypofunction (principal); N52.9 Male erectile dysfunction, unspecified
CPT/HCPCS: 99214

== ENCOUNTER → 2023-12-07 13:47 | Outpatient (BNVA) | payer OTHER, SELFPAY | PROVIDERS: PCP Internal Medicine; Visit Provider Urology ==

== ENCOUNTER 2023-12-23 14:28 | Outpatient (REF) | payer OTHER, SELFPAY ==
[2023-12-23 14:49] LABS: MANUAL DIFF FLAG NO
[2023-12-23 15:03] LABS: Basophils Absolute Auto 0.1 X10*3/uL (0.0-0.2); Basophils Percent Auto 1.1 % (0-2); Eosinophils Absolute Auto 0.2 X10*3/uL (0.0-0.4); Eosinophils Percent Auto 2.3 % (0-4); Hematocrit 46.9 % (42.0-52.0); Hemoglobin 16.1 g/dl (14.0-18.0); Imm Gran Abs Auto 0.03 X10*3/uL (0.00-0.03); Imm Gran Pct Auto 0.3 % (0.0-0.4); Lymphocytes Absolute Auto 2.5 X10*3/uL (1.2-4.9); Lymphocytes Percent Auto 25.3 % (20-40); Mean Corpuscular HGB Conc 34.3 g/dl (31.0-36.0); Mean Corpuscular Hemoglobin 27.8 pg (27.0-33.0); Mean Platelet Volume 10.6 fL (9.4-12.4); Monocytes Absolute Auto 0.9 X10*3/uL (0.1-1.2); Monocytes Percent Auto 8.6 % (2-11); Neutrophils Absolute Auto 6.3 x10*3/uL (2.0-8.3); Neutrophils Percent Auto 62.4 % (45-73); Platelet Count 242 X10*3/uL (160-400); Red Blood Count 5.79 X10*6/uL (4.60-5.80); Red Cell Distribution Width 12.7 % (11.0-16.0)
[2023-12-23 15:22] LABS: Alanine Aminotransferase 46 U/L (0-40); Albumin Level 4.4 g/dL (3.5-5.0); Alkaline Phosphatase 66 U/L (39-117); Anion Gap 10 (12-20); Aspartate Amino Transferase 24 U/L (5-37); Bilirubin Total 0.4 mg/dL (0.0-1.0); Blood Urea Nitrogen 10 mg/dL (9-16); Carbon Dioxide 27 mmol/L (22-29); Chloride 105 mmol/L (96-108); Cholesterol 213 mg/dL (<200); Estimated Glomerular Filt Rate > 60; Glucose Random 74 mg/dL (60-115); Potassium 4.1 mmol/L (3.3-5.1); Sodium 138 mmol/L (135-145); Total Protein 7.6 g/dL (6.5-8.0)
[2023-12-23 15:37] LABS: Estimated Average Glucose 114 mg/dL; Hemoglobin A1c % 5.6 % (<6.0); Total Hemoglobin (HGBA1C) 4244.3599 umol/L
== END 2023-12-23 14:29 | disposition home or self-care (01) ==
LOC: HO.LAB 14:28
PROVIDERS: PCP Internal Medicine; Visit Provider Internal Medicine
DX: R73.03 Prediabetes (principal); G47.33 Obstructive sleep apnea (adult) (pediatric); R68.89 Other general symptoms and signs
CPT/HCPCS: 36415; 80053; 82465; 83036; 85025

== ENCOUNTER 2024-05-28 13:46 | Outpatient (AMB) | payer OTHER, SELFPAY ==
--- NOTE | 2024-05-28 14:05 | MHC.OFFVIS ---
Vital Signs 05/28/24 14:06 Height 5 ft 11 in Weight 231 lb 0.49 oz BMI 32.2 BP 130/84 Blood Pressure Location Lt brachial Position Sitting Pulse 82 Pulse Source Pulse Oximeter Pulse Oximetry (%) 96 Oxygen Delivery Method Room Air Intake Visit Reasons: Obstructive sleep apnea Intake Note: pt is here for follow up and states he states he has been getting headaches. Delivery Supervisor Required: No Allergies No Known Allergies Allergy (Verified 05/28/24 14:40) Medication List - Last Reconciled 05/28/24 by Simran Davila MD albuterol sulfate 90 mcg/actuation (Ventolin HFA) 2 puffs inhalation Q6H PRN albuterol sulfate mg inhalation clonidine HCl 0.1 mg PO BEDTIME escitalopram oxalate 10 mg PO DAILY methadone 5 mg PO DAILY modafinil 100 mg PO DAILY needle (disp) 18 G (BD Regular Bevel [place]) As directed needle (disp) 23 gauge (BD Integra Needle) As directed for weekly Testosterone injection syringe (disposable) (BD Luer-Kitty Syringe) Testosterone injection weekly syringe with needle (BD Luer-Kitty Syringe) As directed tadalafil 5 mg PO DAILY PRN testosterone cypionate (Depo-Testosterone) 100 mg (0.5 mL) subcut QWEEK 28 days Do you need a note to return to daycare/school/sports/work: No HPI HPI Obstructive sleep apnea: Details: DENAE IS 44 YEARS OLD GENTLEMAN WHO COMES AFTER 6 MONTHS FOR FOLLOW-UP. HE HAS BEEN USING CPAP VERY. REGULARLY AND BENEFITTING DOES HAVE MILD NONSPECIFIC TYPE OF HEADACHE WHICH DOES NOT SEEM TO BE DUE TO CPAP. HE HAS LOST SOME WEIGHT. [facility] Medical History Complex sleep apnea syndrome Central sleep apnea comorbid with prescribed opioid use Testosterone deficiency in male CORETTA on CPAP Obesity (BMI 30-39.9) Hypogonadism in male Social History Patient Tobacco Use Status: Current everyday Tobacco user Cigarette Packs Per Day: 0.5 Cigarettes Per Day: 7 Review of Systems Const All systems reviewed & are unremarkable except as noted in HPI and below Eyes Reports no additional complaints ENT Reports no additional complaints Card Denies chest pain, Denies irregular heart rhythm, Denies leg edema and Denies dyspnea Resp Denies cough, Denies dyspnea and Denies wheezing GI Reports no additional complaints Reports change in libido and Reports erectile dysfunction (PATIENT ON TEST 0 STEROID ON THERAPY) Musc Reports no additional complaints Skin/Breast Reports system reviewed and no additional complaints, except as documented Neuro Reports no additional complaints Psych Reports no additional complaints and Reports change in libido Endo Reports change in libido and Reports other (BEING TREATED FOR HYPOGONADISM) Tremaine/Lymph Reports no additional complaints Aller/Immun Denies wheezing Physical Exam Vital Signs: Last Vital Signs Pulse 82 05/28/24 14:06 BP 130/84 05/28/24 14:06 Pulse Ox 96 05/28/24 14:06 Oxygen Delivery Method Room Air 05/28/24 14:06 BMI result Body Mass Index 32.2 Const Other: PATIENT HAS ROUND FACE AND OBESE NECK General: comfortable, no acute distress, alert and awake Orientation/consciousness: patient oriented x3 HEENT Other: MALLAMPATI CLASS 4 Head: Yes normal to inspection General nose exam: No nasal polyps present and No nasal discharge present Face and sinus: Yes sinuses nontender Mouth: oropharynx normal Throat: Yes posterior oropharynx normal Eyes General: appearance normal, both eyes and all related structures Neck Neck: Yes normal visual inspection, Yes no lymphadenopathy, Yes trachea midline, Yes no JVD and Yes other (NECK CIRCUMFERENCE 18-1/2 INCH) Thyroid: Thyroid normal Chest Chest palpation & inspection: normal inspection of the chest, normal palpation of entire chest wall and no tenderness Resp Effort & Inspection: normal respiratory effort Auscultation: clear to auscultation bilaterally, no crackles and no wheezes Cardio Palpation: normal PMI Rate: regular rate Rhythm: regular rhythm Heart sounds: no gallops and no murmurs Peripheral pulses: Peripheral pulses 2+ throughout GI Palpation (GI): Soft to palpation, nontender, No hepatosplenomegaly present and no masses Auscultation: normal bowel sounds Back/Spine/Pelvis Thoracic/Lumbar Spine: thoracic and lumbar spine normal to inspection Skin General skin exam: no rashes or lesions noted Neuro General: patient oriented x3 and no focal motor deficits Cranial nerves: Yes CN's II-XII intact bilaterally Extrem General: Yes normal to inspection, Yes no clubbing, cyanosis or edema and Yes no calf tenderness Psych Appearance: grossly normal and well kempt Speech and movement: Normal speech and movement present Results Reviewed Results Reviewed: COMPLIANCE REPORT FOR THE LAST 30 NIGHTS. IS REVIEWED AND IT IS EXCELLENT USED 30/30 NIGHTS,.100% AVERAGE USE IT PER NIGHT 9 HOURS 25 MINUTES. RESIDUAL AHI 3.7 HE IS ON ASV MODE WITH MINIMUM PS 3 AND MAXIMUM PS 15, EPAP OF 9 CM , Assessment & Plan Assessment & Plan (1) Complex sleep apnea syndrome: Comment: THIS GENTLEMAN IS A CASE OF OBSTRUCTIVE SLEEP APNEA AND,TREATMENT EMERGENT CENTRAL APNEA. HE IS BEING TREATED WITH ASV MODE AND RESPONDING FAIRLY WELL. USES CPAP EVERY NIGHT AND SLEEPS WELL. COMPLIANCE IS EXCELLENT . * IT SHOULD BE NOTED THAT THE CENTRAL APNEA IS PROBABLY CAUSED DUE TO HIS TREATMENT WITH METHADONE . Code(s): G47.31 - Primary central sleep apnea Category: Medical Plan: COMMENDED FOR GOOD COMPLIANCE, AND ADVISED TO KEEP ON USING THE CPAP REGULARLY EVERY NIGHT. ALSO COMMENDED FOR LOSING 7 LB OF WEIGHT SINCE HIS LAST VISIT. Medications: Changed From tadalafil BIN [id number] [facility] Group DR33 5 mg PO DAILY 90 days 90 tabs 0RF sexual activity N52.9 - Male erectile dysfunction, unspecified To tadalafil BIN [id number] [facility] Group DR33 5 mg PO DAILY PRN sexual activity N52.9 - Male erectile dysfunction, unspecified Coding Level of Care Code Est Pt Level 3 (95046) Diagnoses Complex sleep apnea syndrome G47.31
[2024-05-28 14:06] VITALS: BP 130/84; PULSE 82; O2SAT 96; BMI 32.2
== END 2024-05-28 14:21 | disposition home or self-care (01) ==
LOC: HO.HPS 13:46
PROVIDERS: PCP Internal Medicine; Visit Provider Internal Medicine
DX: G47.31 Primary central sleep apnea (principal)
CPT/HCPCS: 99213

== ENCOUNTER → 2024-05-28 13:46 | Outpatient (BNVA) | payer OTHER, SELFPAY | PROVIDERS: PCP Internal Medicine; Visit Provider Internal Medicine | DX: G47.31 Primary central sleep apnea (principal) | CPT/HCPCS: 99212 ==

== ENCOUNTER 2024-06-06 13:49 | Outpatient (AMB) | payer OTHER, SELFPAY ==
[2024-06-06 13:54] VITALS: BP 130/80; PULSE 82; TEMP 36.4; O2SAT 98; BMI 32.8
--- NOTE | 2024-06-06 13:54 | MHC.PC.OV ---
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: No Accompanied by: Self / Same As Patient Allergies No Known Allergies Allergy (Verified 06/06/24 13:54) Tobacco use date assessed: 06/06/24 Dental Screening Dental Screen Date: 06/06/24 Did you have a dental visit in the last 12 months?: Yes Did you have a dental problem in the last 6 months where you did not have access to dental care?: No [facility] Medical History (Updated 06/06/24 @ 14:28 by Levi Henry MD) Substance use disorder Complex sleep apnea syndrome Central sleep apnea comorbid with prescribed opioid use Testosterone deficiency in male CORETTA on CPAP Obesity (BMI 30-39.9) Hypogonadism in male Family History (Updated 06/06/24 @ 14:08 by Nabila Dickey MA) Mother No problems noted. Father No problems noted. Social History Housing: Apartment Patient Tobacco Use Status: Current everyday Tobacco user Cigarette Packs Per Day: 0.5 Cigarettes Per Day: 7 e-Cigarette/Vaping Use: Currently Using service: No Current occupational status: employed Cognitive needs: No Hearing needs: No Vision needs: No Questionnaire PHQ-9 Over the last 2 weeks, how often have you been bothered by any of the following problems? 1. Little interest or pleasure in doing things: not at all 2. Feeling down, depressed, or hopeless: not at all 3. Trouble falling or staying asleep, or sleeping too much: not at all 4. Feeling tired or having little energy: not at all 5. Poor appetite or overeating: not at all 6. Feeling bad about yourself - or that you are a failure or have let yourself or your family down: not at all 7. Trouble concentrating on things, such as reading the newspaper or watching television: not at all 8. Moving or speaking so slowly that other people could have noticed. Or the opposite - being so fidgety or restless that you have been moving around a lot more than usual: not at all 9. Thoughts that you would be better off or of hurting yourself in some way: not at all Total score: 0 Source: Developed by Drs. Baudilio Wheeler, Nguyễn Razo and colleagues, with an educational jaxon from [employer]. Thrive Questionnaire Date Thrive assessed: 06/06/24 I am a: Patient Within the past 12 months, did the food you bought not last and you didn't have the money to get more?: Never true Within the past 12 months, did you worry whether your food would run out before you got money to buy more?: Never true Do you have trouble paying for medicines?: No Do you have trouble getting transportation to medical appointments?: No Do you have trouble paying your heating and electricity bill?: No Do you have trouble taking care of your child, family member or friend?: No Do you have trouble with day-to-day activities such as bathing, preparing meals, shopping, managing finances, etc.?: No Are you currently unemployed and looking for a job?: No Are you interested in more education?: No THRIVE Score: 0 AUDIT C Alcohol Use Questionnaire (AUDIT-C) 1. How often do you have a drink containing alcohol?: Never 3. How often do you have six or more drinks on one occasion?: Never Total Score: 0 REVA-7 AMB Questionnaire REVA-7 Date REVA - 7 assessed: 06/06/24 Feeling nervous, anxious, or on edge: 0 = Not at all Not being able to stop or control worryin = Not at all Worrying too much about different things: 0 = Not at all Trouble relaxin = Not at all Being so restless that it is hard to sit still: 0 = Not at all Becoming easily annoyed or irritable: 0 = Not at all Feeling afraid as if something awful might happen: 0 = Not at all Total REVA-7 score (0-4 normal; 5-9 mild; 10-14 moderate; 15-21 severe): 0 Source: Developed by Drs. Baudilio Wheeler, Sonal Casillas, Nguyễn Phillips and colleagues, with an educational jaxon from [employer]. Physical exam (Primary Care) Vital Signs: Last Vital Signs Temp 97.6 F 06/06/24 13:54 Pulse 82 06/06/24 13:54 BP 130/80 06/06/24 13:54 Pulse Ox 98 06/06/24 13:54 Oxygen Delivery Method Room Air 06/06/24 13:54 BMI result Body Mass Index 32.8 Tobacco/Smoking Status: Tobacco use Status Tobacco use date assessed 06/06/24 06/06/24 13:58 Patient Tobacco Use Status Current everyday Tobacco 06/06/24 13:58 e-Cigarette/Vaping Use Currently Using 06/06/24 13:58 PHQ-9: PHQ-9 Score PHQ-9: Total score 0 06/06/24 14:08 Thrive Assessment: Date of Thrive Assessment Date Thrive assessed 06/06/24 06/06/24 13:58 Coding Level of Care Code New Pt Level 4 (31564) Complex EM visit Add On G2211 Diagnoses Headache R51.9 Hypogonadism in male E29.1 Obesity (BMI 30-39.9) E66.9 CORETTA on CPAP G47.33; Z99.89 Substance use disorder F19.90 Assessment & Plan Assessment & Plan (1) Headache: Code(s): R51.9 - Headache, unspecified (2) Hypogonadism in male: Code(s): E29.1 - Testicular hypofunction Category: Medical Plan: On testosterone replacement from Dr Christianson (3) Obesity (BMI 30-39.9): Comment: BMI=33.2 , PATIENT IS MODERATELY OBESE, IT IS PARTLY CONTRIBUTED BY TESTOSTERONE THERAPY, HE HAS EXCESSIVE OBESE TISSUE AROUND THE NECK, AND OROPHARYNX. Code(s): E66.9 - Obesity, unspecified Category: Medical Plan: Counselling on the importance of diet and exercise done (4) CORETTA on CPAP: Comment: PATIENT HAS HAD OBSTRUCTIVE SLEEP APNEA, BEING TREATED WITH CPAP, CPAP TITRATION STUDY SHOWED TREATMENT EMERGENT CENTRAL SLEEP APNEA. FOR THAT REASON HE HAD TITRATION WITH ASV MODE, AND IT DID ELIMINATE OBSTRUCTIVE WELL CENTRAL APNEA. NOW HE IS ON CPAP WITH ASV MODE AND IS DOING VERY WELL. COMPLIANCE IS GOOD AND RESIDUAL AHI ONLY 2.5. Code(s): G47.33 - Obstructive sleep apnea (adult) (pediatric); Z99.89 - Dependence on other enabling machines and devices Category: Medical (5) Substance use disorder: Code(s): F19.90 - Other psychoactive substance use, unspecified, uncomplicated Category: Medical Plan: On Methadone Plan History of Present Illness The patient is a 44-year-old male presenting with headaches. He reports faint headaches and experiences brain fog, with exacerbation after activities such as sexual intercourse. The patient has a history of oxycodone addiction and is currently reducing his methadone dosage, which he believes is contributory to his central sleep apnea. He reports gastrointestinal issues, specifically constipation, which he manages with Linaclotide and has attempted dietary changes, though access to fiber supplements has been challenging due to prescription coverage. The patient also describes episodes of disorientation and sweating, which hint at possible blood sugar regulation issues, though routine blood work has not yielded any abnormalities. He maintains a regimen of daily walking for physical activity. The patient's sleep is regulated with a BiPAP machine, although fatigue remains an issue. He is being monitored by a team of specialists. Social History - Previously worked seven days a week for five years; currently not working to concentrate on health. - Engages in daily walking as part of physical activity. - Substance use history: Former oxycodone addict, currently tapering methadone from 145 mg to 18 mg. - Dietary changes attempted to improve gut health, use of Linaclotide necessitates proximity to bathroom facilities. - Discussed consideration of weight loss aids and blood sugar management strategies. Review of Systems - Neurological: Reports headaches, brain fog, and fatigue. - Respiratory: Reports usage of BiPAP for sleep apnea. - Gastrointestinal: Reports constipation, reliant on Linaclotide. - Endocrine: Reports episodes suggestive of hypoglycemia, testosterone regulated by therapy. Physical Exam General: Cooperative and healthy appearing Nutritional Appearance: Well nourished Orientation/consciousness: Patient oriented x3 Limitations: No limitations Head: Normal to inspection General: Appearance normal, both eyes and all related structures Neck: Normal visual inspection Chest: Normal palpation of entire chest wall Respiratory: Central apnea noted, patient on DIPAP ormal respiratory effort Neurology: Patient oriented x3, reports headaches and brain fog Results - Labs: Previous blood work with unspecified results. - Tests and Diagnostics: No specific diagnostic test results discussed. Plan The visit focused on addressing the patient's chronic and acute issues related to headaches and associated conditions. I emphasize the importance of continuing methadone taper to potentially improve sleep apnea while managing headaches by monitoring ongoing treatment strategies across specialties. The patient?s gastrointestinal dysfunction remains under control with Linaclotide despite dietary challenges. Future weight management strategies were deliberated, though not initiated due to coverage issues. Monitoring blood sugar remains critical following prior hypoglycemic episodes. Testosterone therapy monitoring continues to be crucial for energy regulation and fatigue management. Coordination with specialists will facilitate a comprehensive approach to the patient's multifaceted health conditions. Patient was informed and verbally consented to the use of an ambient scribe for clinic note documentation during this visit. Discussion Notes I discussed with the patient the potential benefits and risks of continuing methadone tapering to improve central sleep apnea and its associated symptoms. I explained the impact of methadone on both sleep and gastrointestinal function, emphasizing the importance of continued gradual reduction. We talked about the need for lifestyle modifications, such as dietary management and safe use of Linaclotide to manage constipation effectively. I advised against initiating weight loss injections due to coverage and lack of apparent necessity at this time, focusing instead on consistent exercise and diet modifications. The importance of routine blood work prior to visits was underscored, specifically aligning with energy regulation under testosterone therapy, with ongoing specialist collaboration emphasized. The patient was encouraged to continue proactive engagement with his care team for overall health optimization. Patient Instructions - Continue prescribed methadone taper as tolerated to manage sleep apnea. - Persist with current gastrointestinal management regimen, ensuring proximity to a bathroom after Linaclotide use. - Maintain regular physical activity, such as walking daily. - Schedule blood work approximately one week prior to follow-up visits. - Continue testosterone therapy management under Dr. Christianson?s supervision. - Monitor for symptoms of blood sugar fluctuations and report any significant episodes. - Moderate dietary modifications to support overall gastrointestinal health. Orders: Orders Complete Blood Count no Diff Today E29.1 - Testicular hypofunction, R51.9 - Headache, unspecified Liver Panel Today E29.1 - Testicular hypofunction, R51.9 - Headache, unspecified UA and rflx microscopic Today E29.1 - Testicular hypofunction, R51.9 - Headache, unspecified CT head/brain wo IV con Today R51.9 - Headache, unspecified Basic Metabolic Panel Today E29.1 - Testicular hypofunction, R51.9 - Headache, unspecified Lipid Panel Today E29.1 - Testicular hypofunction, R51.9 - Headache, unspecified Thyroid Stimulating Hormone Today E29.1 - Testicular hypofunction, R51.9 - Headache, unspecified
== END 2024-06-06 14:26 | disposition home or self-care (01) ==
LOC: HO.HMCHD 13:49
PROVIDERS: PCP Internal Medicine; Visit Provider Internal Medicine
DX: R51.9 Headache, unspecified (principal); E29.1 Testicular hypofunction; E66.9 Obesity, unspecified; G47.33 Obstructive sleep apnea (adult) (pediatric); Z99.89 Dependence on other enabling machines and devices; F19.90 Other psychoactive substance use, unspecified, uncomplicated

== ENCOUNTER → 2024-06-06 13:49 | Outpatient (BNVA) | payer OTHER, SELFPAY | PROVIDERS: PCP Internal Medicine; Visit Provider Internal Medicine | DX: R51.9 Headache, unspecified (principal); E29.1 Testicular hypofunction; E66.9 Obesity, unspecified; Z68.32 Body mass index [BMI] 32.0-32.9, adult; G47.33 Obstructive sleep apnea (adult) (pediatric); F19.90 Other psychoactive substance use, unspecified, uncomplicated; Z99.89 Dependence on other enabling machines and devices | CPT/HCPCS: 99202 ==

== ENCOUNTER 2024-07-03 09:02 | Outpatient (REF) | payer OTHER, SELFPAY ==
[2024-07-03 09:53] LABS: Hematocrit 49.4 % (42.0-52.0); Hemoglobin 16.8 g/dl (14.0-18.0); Mean Corpuscular Hemoglobin 28.3 pg (27.0-33.0); Mean Corpuscular Volume 83.3 fL (80.0-98.0); Platelet Count 246 X10*3/uL (160-400); Red Blood Count 5.93 X10*6/uL (4.60-5.80); Red Cell Distribution Width 12.6 % (11.0-16.0); White Blood Count 9.1 X10*3/uL (4.8-10.8)
[2024-07-03 10:13] LABS: Appearance Urine Clear; Color Urine Yellow; Glucose Urine UA Negative (Negative); Leukocyte Esterase Urine Negative (Negative); Nitrite Urine Negative (Negative); PH 5.5 (5.0-9.0); Specific Gravity - Urine 1.025 (1.005-1.025); Urine Blood Negative (Negative); Urine Ketones Trace mg/dL (Negative); Urine Protein Negative (Neg-Trace)
[2024-07-03 10:35] LABS: Alanine Aminotransferase 46 U/L (0-40); Albumin Level 4.5 g/dL (3.5-5.0); Alkaline Phosphatase 77 U/L (39-117); Anion Gap 11 (12-20); Aspartate Amino Transferase 27 U/L (5-37); Bilirubin Direct 0.2 mg/dL (0.0-0.5); Bilirubin Total 0.4 mg/dL (0.0-1.0); Blood Urea Nitrogen 14 mg/dL (9-16); Calcium 9.4 mg/dL (8.4-10.2); Carbon Dioxide 27 mmol/L (22-29); Chloride 104 mmol/L (96-108); Cholesterol 243 mg/dL (<200); Estimated Glomerular Filt Rate > 60; Glucose Random 105 mg/dL (60-115); HDL Cholesterol 42 mg/dL (>40); LDL Cholesterol Calculated 184 mg/dL (<100); Potassium 4.4 mmol/L (3.3-5.1); Sodium 138 mmol/L (135-145); Total Protein 7.8 g/dL (6.5-8.0); Triglycerides 89 mg/dL (<150)
[2024-07-03 10:45] LABS: Prostate Specific Antigen 0.61 ng/mL (<0.05-4.0)
[2024-07-03 10:59] LABS: Thyroid Stimulating Hormone 1.43 uIU/mL (0.32-4.0)
[2024-07-08 18:03] LABS: Testosterone, Total 147 ng/dL (250-1100)
== END 2024-07-03 09:03 | disposition home or self-care (01) ==
LOC: HO.LAB 09:02
PROVIDERS: Absent Provider Urology; PCP Internal Medicine; Visit Provider Internal Medicine
DX: Z12.5 Encounter for screening for malignant neoplasm of prostate (principal); E29.1 Testicular hypofunction; R51.9 Headache, unspecified
CPT/HCPCS: 36415; 80048; 80061; 80076; 81003; 84153; 84402; 84403; 84443; 85027

== ENCOUNTER 2024-07-04 15:41 | Outpatient (AMB) | payer OTHER, SELFPAY ==
--- NOTE | 2024-07-04 16:16 | MHC.OFFVIS ---
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 He is a patient of Dr. Ayers. He is seen for the following urologic conditions - hypogonadism - erectile dysfunction Medication works when he is consistent dosing - lab work and range Lab work still pending Refill provided with 18 gauge needles in 22 gauge needles were injection Injection Day: Tuesday Lab Day: Tuesday Would like to continue with daily tadalafil 5 mg Hypogonadism Low T secondary to longstanding methadone Concomitant obstructive sleep apnea on CPAP Current doses 0.5 cc weekly No family history prostate cancer Therapy performed by injection Laboratories 03/06 T33, 03/07 T 588 P 0.4 H 49, 06/06 T 158 P 0.4, 11/06 1026 0.6 49, 12/07 T 676 P 0.7 Therapeutic plan continue injections PFSH Medical History Substance use disorder Complex sleep apnea syndrome Central sleep apnea comorbid with prescribed opioid use Testosterone deficiency in male CORETTA on CPAP Obesity (BMI 30-39.9) Hypogonadism in male Family History Mother No problems noted. Father No problems noted. Social History Housing: Apartment Patient Tobacco Use Status: Current everyday Tobacco user Cigarette Packs Per Day: 0.5 Cigarettes Per Day: 7 e-Cigarette/Vaping Use: Currently Using service: No Current occupational status: employed Cognitive needs: No Hearing needs: No Vision needs: No Review of Systems Const Denies chills and Denies fever(s) Card Reports no additional complaints and Denies syncope Resp Denies cough GI Denies abdominal pain and Denies heartburn Reports as per HPI and Denies change in libido Neuro Denies syncope Psych Denies change in libido Endo Denies change in libido Physical Exam Const General: cooperative, healthy appearing, comfortable and no acute distress Orientation/consciousness: patient oriented x3 HEENT Face and sinus: Yes normal facial exam Mouth: moist mucous membranes Neck Neck: Yes normal visual inspection, Yes full ROM and Yes trachea midline Chest Chest palpation & inspection: normal inspection of the chest Resp Effort & Inspection: normal respiratory effort, able to speak in complete sentences and no respiratory distress GI Inspection: Yes normal to inspection Back/Spine/Pelvis Cervical Spine: normal cervical lordosis Thoracic/Lumbar Spine: thoracic and lumbar spine normal to inspection Skin General skin exam: no rashes or lesions noted Neuro General: patient oriented x3, gait normal, tone normal and moves all extremities Extrem General: Yes normal to inspection and Yes capillary refill normal Assessment & Plan Assessment & Plan (1) Hypogonadism in male: Code(s): E29.1 - Testicular hypofunction Category: Medical (2) Erectile dysfunction: Code(s): N52.9 - Male erectile dysfunction, unspecified Category: Medical Plan Six-month follow-up lab work Orders: Orders Testosterone, Free/Total 07/03/24 E29.1 - Testicular hypofunction Testosterone, Total 6 Months E29.1 - Testicular hypofunction Complete Blood Count no Diff 6 Months E29.1 - Testicular hypofunction Prostate Specific Antigen 07/03/24 Z12.5 - Encounter for screening for malignant neoplasm of prostate Prostate Specific Antigen 6 Months E29.1 - Testicular hypofunction Medications: New needle (disp) 18 G (BD Regular Bevel [place]) As directed - draw up testosterone 30 ea 0RF E29.1 - Testicular hypofunction syringe (disposable) (BD Luer-Kitty Syringe) Testosterone injection weekly 30 ea 0RF E29.1 - Testicular hypofunction, E34.9 - Endocrine disorder, unspecified safety needles (Easy Touch FlipLock Needle) As directed 30 ea 0RF E29.1 - Testicular hypofunction Discontinued needle (disp) 18 G (BD Regular Bevel [place]) Discontinued Reason: Doctor's Order As directed 30 ea 0RF E29.1 - Testicular hypofunction needle (disp) 23 gauge (BD Integra Needle) Discontinued Reason: Patient Completed Course As directed for weekly Testosterone injection 30 ea 0RF E29.1 - Testicular hypofunction syringe (disposable) (BD Luer-Kitty Syringe) Discontinued Reason: Patient Completed Course Testosterone injection weekly 30 ea 0RF E29.1 - Testicular hypofunction, E34.9 - Endocrine disorder, unspecified syringe with needle (BD Luer-Kitty Syringe) Discontinued Reason: Patient Completed Course As directed 100 ea 0RF Patient Instructions: This note is constructed using voice recognition software. While every effort has been made to ensure accuracy ventilated rib fitter errors may have been included. Imaging studies, laboratory and physical exam results were discussed and reviewed in detail. No major barriers to patient understanding were identified. An opportunity to ask questions regarding the treatment plan was provided. All questions were answered. The patient expressed understanding and agreement with the above treatment plan. The patient is aware they should contact our office by phone for worsening of their current condition or the appearance of new urologic symptoms. Compliance is encouraged with any medications and followup testing that is ordered. It is a privilege to participate in the urologic care of your patient. If you have any questions or concerns regarding treatment for the above conditions, or other urologic issues, please do not hesitate to contact me. The office telephone contact is [phone]. Sincerely, Dr Regan Christianson MD, [facility] - Urology Compassionate Specialist Care for the Genitourinary System Coding Level of Care Code Est Pt Level 3 (09280) Complex EM visit Add On G2211 Diagnoses Hypogonadism in male E29.1 Erectile dysfunction N52.9
== END 2024-07-04 17:20 | disposition home or self-care (01) ==
LOC: HO.HUSH 15:41
PROVIDERS: PCP Internal Medicine; Visit Provider Urology
DX: E29.1 Testicular hypofunction (principal); N52.9 Male erectile dysfunction, unspecified
CPT/HCPCS: 99213; G2211

== ENCOUNTER → 2024-07-04 15:41 | Outpatient (BNVA) | payer OTHER, SELFPAY | PROVIDERS: PCP Internal Medicine; Visit Provider Urology | DX: E29.1 Testicular hypofunction (principal); N52.9 Male erectile dysfunction, unspecified | CPT/HCPCS: 99212 ==

== ENCOUNTER 2024-07-13 16:56 | Outpatient (REF) | payer OTHER, SELFPAY ==
--- NOTE | ~2024-07-13 | CT_ITS ---
CLINICAL HISTORY: R51.9 - Headache, unspecified CT head without contrast Comparison: CT/SR - CT HEAD/BRAIN WO IV CON - 08/28/23 16:27 EDT Findings: No intra-axial mass, midline shift, hydrocephalus, or acute hemorrhage. No significant atrophy-like change or white matter disease. Partial opacification of the ethmoid air cells. The orbits are unremarkable. There is no acute fracture. IMPRESSION: 1. No acute intracranial findings. 2. Persistent but improved ethmoid sinus disease. This document has been electronically signed by: All Roberts MD on 07/16/2024 11:35:47
== END 2024-07-13 16:57 | disposition home or self-care (01) ==
LOC: HO.CT 16:56
PROVIDERS: PCP Internal Medicine; Visit Provider Internal Medicine
DX: R51.9 Headache, unspecified (principal)
CPT/HCPCS: 70450

== ENCOUNTER → 2024-07-13 16:57 | Outpatient (BNV) | payer OTHER, SELFPAY | PROVIDERS: PCP Internal Medicine; Visit Provider Radiology Vascular & Interventional Radiology | DX: R51.9 Headache, unspecified (principal) | CPT/HCPCS: 70450 ==

== ENCOUNTER 2024-07-23 14:31 | Outpatient (AMB) | payer OTHER, SELFPAY ==
--- NOTE | 2024-07-23 14:33 | A.OFFPC_ITS ---
Vital Signs 07/23/24 14:40 07/23/24 15:30 Height 5 ft 11 in Weight 105.233 kg BMI 32.4 BP 152/100 H 132/84 Respiration 16 Pulse 77 Pulse Source Pulse Oximeter Temp 98.3 F Temp Source Temporal Artery Scan Pulse Oximetry (%) 97 Oxygen Delivery Method Room Air Intake Visit Reasons: Routine Pattern Illustrator Required: No Accompanied by: Self / Same As Patient Allergies No Known Allergies Allergy (Verified 07/23/24 14:34) Tobacco use date assessed: 06/06/24 Dental Screening Dental Screen Date: 06/06/24 HPI HPI Comments History of Present Illness Details 44-year-old male with history of opiate use disorder, hyperlipidemia, central sleep apnea, obesity who is a current cigarette smoker presents to the office today for follow-up. Hyperlipidemia-last LDL 186. Recently started on atorvastatin 40 mg daily. Denies any adverse side effects. Opioid use disorder-following with [facility] and [place]. Has been tapering off methadone, currently on 18 mg down from 135 mg. He is not used any illicit substances in 7 years. Central sleep apnea-likely related to methadone use. He is compliant with AVS machine. Following with pulmonology Cigarette smoking-reports he has cut down to 5 cigarettes per day Chronic constipation- likely r/t opioid use. On linzess following with GI Depression/anxiety-follows with [facility] for therapy and psychiatry. Controlled with clonidine and lexapro Obesity-reports walking his dog but no other formal exercise. Not currently following healthy diet but interested in referral to dietitian Concerns: Chronic daily headaches- reports a constant dull bilateral headache that waxes and wanes in severity ongoing for many months. Unable to fully describe beyond this. He reports recently experienced a severe left sided pulsating/sharp headache after orgasm. States this was the worst headache he has ever had and almost called EMS. Currently described as mild. There is associated aura, light sensitivity, and brain fog. Taking ibuprofen and excedrin without much relief. No FH of chronic headaches/aneurysm. Hx OUD and cigarette smoking. No blurred vision/double vision, loss of vision, dysphagia, dysarthria, facial droop, difficulty hearing, lightheadedness, weakness/paresthesias. Has upcoming appt with neuro on 08/14 ROS: General: No fevers, malaise, unintentional weight loss HEENT: see hpi Cardiovascular: No chest pain, palpitations, or leg edema Respiratory: No shortness of breath, wheezing, cough GI: see hpi MSK: No myalgia, back pain Neuro: see hpi Skin: No rashes or lesions EXAM: Constitutional - Awake and Alert, No apparent distress Eyes - PERRLA, EOMI Cardiovascular - S1S2, RRR, No edema Respiratory - Normal lung expansion, Normal respiratory effort, No respiratory distress, CTA bilaterally Extremities - no calf tenderness bilaterally, no swelling . venous stasis changed b/l Skin - Warm/Dry Neurological - Alert & oriented x3, CN II-XII in tact, 06/18 strength BUE and BLE Psychological - Appropriate affect [facility] Medical History (Updated 07/23/24 @ 15:38 by LALA Magana) Hyperlipidemia Constipation Substance use disorder Complex sleep apnea syndrome Central sleep apnea comorbid with prescribed opioid use Testosterone deficiency in male CORETTA on CPAP Obesity (BMI 30-39.9) Hypogonadism in male Family History Mother No problems noted. Father No problems noted. Social History Housing: Apartment Patient Tobacco Use Status: Current everyday Tobacco user Cigarette Packs Per Day: 0.5 Cigarettes Per Day: 7 e-Cigarette/Vaping Use: Currently Using service: No Current occupational status: employed Cognitive needs: No Hearing needs: No Vision needs: No Questionnaire Thrive Questionnaire Date Thrive assessed: 06/06/24 I am a: Patient What is your living situation today?: I have a place to live, but I am worried about losing it in the future Within the past 12 months, did the food you bought not last and you didn't have the money to get more?: Often true Within the past 12 months, did you worry whether your food would run out before you got money to buy more?: Often true Do you have trouble paying for medicines?: No Do you have trouble getting transportation to medical appointments?: No Do you have trouble paying your heating and electricity bill?: Yes Do you have trouble taking care of your child, family member or friend?: No Do you have trouble with day-to-day activities such as bathing, preparing meals, shopping, managing finances, etc.?: No Are you currently unemployed and looking for a job?: Yes Are you interested in more education?: No Please select the resources that you would like help with: Food, Utilities and Job search/training THRIVE Score: 4 REVA-7 AMB Questionnaire REVA-7 Date REVA - 7 assessed: 06/06/24 Source: Developed by Drs. Baudilio Wheeler, Sonal Casillas, Nguyễn Phillips and colleagues, with an educational jaxon from [employer]. Physical exam (Primary Care) Vital Signs: Last Vital Signs Temp 98.3 F 07/23/24 14:40 Pulse 77 07/23/24 14:40 Resp 16 07/23/24 14:40 BP 152/100 H 07/23/24 14:40 Pulse Ox 97 07/23/24 14:40 Oxygen Delivery Method Room Air 07/23/24 14:40 BMI result Body Mass Index 32.4 Tobacco/Smoking Status: Tobacco use Status Tobacco use date assessed 06/06/24 07/23/24 14:36 Patient Tobacco Use Status Current everyday Tobacco 07/23/24 14:36 e-Cigarette/Vaping Use Currently Using 07/23/24 14:36 Thrive Assessment: Date of Thrive Assessment Date Thrive assessed 06/06/24 07/23/24 14:36 Coding Level of Care Code Est Pt Level 4 (89197) Complex EM visit Add On G2211 Diagnoses Substance use disorder F19.90 Hypogonadism in male E29.1 Obesity (BMI 30-39.9) E66.9 Central sleep apnea comorbid with prescribed opioid use F11.90; G47.37 Chronic daily headache R51.9 Headache associated with orgasm G44.82 Hyperlipidemia E78.5 Assessment & Plan Assessment & Plan (1) Substance use disorder: Code(s): F19.90 - Other psychoactive substance use, unspecified, uncomplicated Category: Medical Plan: Continue following with [facility] for methadone taper. Commended on his sobriety (2) Hypogonadism in male: Code(s): E29.1 - Testicular hypofunction Category: Medical Plan: Testosterone levels improved. Continue following with urology and testosterone supplementation. Recommend weight training as well (3) Obesity (BMI 30-39.9): Comment: BMI=33.2 , PATIENT IS MODERATELY OBESE, IT IS PARTLY CONTRIBUTED BY TESTOSTERONE THERAPY, HE HAS EXCESSIVE OBESE TISSUE AROUND THE NECK, AND OROPHARYNX. Code(s): E66.9 - Obesity, unspecified Category: Medical Plan: Weight loss efforts encouraged. Recommendend diet lower in calories wiht emphasis on increased protein/vegetables/fruit limiting refined sugars/simple carbs and highly processed foods. Recommend increased exercise. Table Cover Folder referral placed at pt request (4) Central sleep apnea comorbid with prescribed opioid use: Comment: PATIENT HAS TREATMENT EMERGENT CENTRAL SLEEP APNEA, THE BASIC CAUSE BEING (OPIOID USAGE ) SEE UNDER CORETTA Code(s): F11.90 - Opioid use, unspecified, uncomplicated; G47.37 - Central sleep apnea in conditions classified elsewhere Category: Medical Plan: controlled. continue following with pulmonology and continue use AVS as advised (5) Chronic daily headache: Code(s): R51.9 - Headache, unspecified Category: Medical Plan: Head CT reviewed which is without any concerning findings. Given chronicity of headaches, not entirely consistent with migraine type headaches, as well as concerning episode of post orgasm sudden onset unilateral headache described as the worst headache of his life so much that he almost called EMS, urgent MRI brain w contrast ordered for further evaluation. Risk factors including OUD and smoking hx. Continue tylenol and excedrin prn. Present to the ED should severe headache recur. Follow up with neurology as scheduled. (6) Headache associated with orgasm: Code(s): G44.82 - Headache associated with sexual activity Category: Medical Plan: as above (7) Hyperlipidemia: Code(s): E78.5 - Hyperlipidemia, unspecified Category: Medical Plan: Lipid panel reviewed. Continue recently prescribed atorvastatin 40mg daily. Dietary changes as above. Lipid and liver panel prior to next visit. Plan Follow up as scheduled with labs completed prior to visit. Referred to seafood technology specialist. Referred for MRI. Nicorette gum prescribed. Smoking cessation strongly advised Orders: Orders Lipid Panel 5 Months E29.1 - Testicular hypofunction, E66.9 - Obesity, unspecified, F11.90 - Opioid use, unspecified, uncomplicated, F19.90 - Other psychoactive substance use, unspecified, uncomplicated, G44.82 - Headache associated with sexual activity, G47.37 - Central sleep apnea in conditions classified elsewhere, R51.9 - Headache, unspecified Liver Panel 5 Months E29.1 - Testicular hypofunction, E66.9 - Obesity, unspecified, F11.90 - Opioid use, unspecified, uncomplicated, F19.90 - Other psychoactive substance use, unspecified, uncomplicated, G44.82 - Headache associated with sexual activity, G47.37 - Central sleep apnea in conditions classified elsewhere, R51.9 - Headache, unspecified MR head/brain w con Today G44.82 - Headache associated with sexual activity, R51.9 - Headache, unspecified Basic Metabolic Panel 5 Months E29.1 - Testicular hypofunction, E66.9 - Obesity, unspecified, F11.90 - Opioid use, unspecified, uncomplicated, F19.90 - Other psychoactive substance use, unspecified, uncomplicated, G44.82 - Headache associated with sexual activity, G47.37 - Central sleep apnea in conditions classified elsewhere, R51.9 - Headache, unspecified Referrals Table Cover Folder Nutrition Referral E66.9 - Obesity, unspecified Medications: New nicotine (polacrilex) (Nicorette) 2 mg buccal Q2H PRN 100 ea 0RF nicotine cravings
[2024-07-23 14:40] VITALS: BP 152/100; PULSE 77; RESP 16; TEMP 36.8; O2SAT 97; BMI 32.4
[2024-07-23 15:30] VITALS: BP 132/84
== END 2024-07-23 15:12 | disposition home or self-care (01) ==
LOC: HO.HMCHD 14:32
PROVIDERS: PCP Internal Medicine; Visit Provider Physician Assistant
DX: F19.90 Other psychoactive substance use, unspecified, uncomplicated (principal); E29.1 Testicular hypofunction; E66.9 Obesity, unspecified; Z68.32 Body mass index [BMI] 32.0-32.9, adult; F11.90 Opioid use, unspecified, uncomplicated; G47.37 Central sleep apnea in conditions classified elsewhere; G44.82 Headache associated with sexual activity; E78.5 Hyperlipidemia, unspecified

== ENCOUNTER → 2024-07-23 14:31 | Outpatient (BNVA) | payer OTHER, SELFPAY | PROVIDERS: PCP Internal Medicine; Visit Provider Physician Assistant | DX: E29.1 Testicular hypofunction (principal); F19.90 Other psychoactive substance use, unspecified, uncomplicated; E66.9 Obesity, unspecified; G44.82 Headache associated with sexual activity; F11.90 Opioid use, unspecified, uncomplicated; G47.37 Central sleep apnea in conditions classified elsewhere | CPT/HCPCS: 99212 ==

== ENCOUNTER 2024-07-31 19:54 | Outpatient (REF) | payer OTHER, SELFPAY ==
--- NOTE | ~2024-07-31 | MR_ITS ---
CLINICAL HISTORY: R51.9 - Headache, unspecified MR Angiography head without gadolinium Comparison: CT/OK/SR - CT HEAD/BRAIN WO IV CON - 07/13/24 17:01 EDT Findings Intracranial internal carotid arteries are normal. Vertebrobasilar system is normal. Anterior, middle, and posterior cerebral arteries are normal. Unremarkable cerebellar arteries. IMPRESSION: Normal MRA brain. No hemodynamically significant stenosis, occlusion, aneurysm or AVM of the major intracranial arteries. This document has been electronically signed by: Robyn Lawton MD on 07/31/2024 21:02:59
== END 2024-07-31 19:55 | disposition home or self-care (01) ==
LOC: HO.MRI 19:54
PROVIDERS: PCP Internal Medicine; Visit Provider Physician Assistant
DX: G44.82 Headache associated with sexual activity (principal)
CPT/HCPCS: 70544

== ENCOUNTER → 2024-07-31 20:02 | Outpatient (BNV) | payer OTHER, SELFPAY | PROVIDERS: PCP Internal Medicine; Visit Provider Student in an Organized Health Care Education/Training Program | DX: R51.9 Headache, unspecified (principal) | CPT/HCPCS: 70544 ==

== ENCOUNTER 2024-08-14 12:22 | Outpatient (AMB) | payer OTHER, SELFPAY ==
--- NOTE | 2024-08-14 12:37 | MHC.OFFVIS ---
Intake Visit Reasons: LITTLEJOHN Allergies No Known Allergies Allergy (Verified 07/23/24 14:34) HPI Comments Details: This is a 44-year-old man with a history of obstructive sleep apnea on CPAP for the last 5 years, hypogonadism, history of narcotic abuse in the past on methadone maintenance at 17 mg a day currently, who comes in for evaluation of chronic daily headaches for a little over a year. He wakes up with a dull headache which remains all day. Some days it is only 1-2 on a scale of 10, on other days it can be more intense. He has had 2 episodes of coital headache with intense headache for 10 minutes after intercourse. He has not identified any other triggers. There is no nausea or vomiting. He feels pounding in the head associated with some photophobia about once every 2 weeks. There is no family history of headache. He is using Excedrin 1-2 tablets on a daily basis. He also suffers from depression and anxiety and is on escitalopram 15 mg a day. He is conscientious with the use of his CPAP and gets about 8 hours of sleep. He has recently had a CT scan and MRA of the head both of which were normal except for ethmoid sinusitis. [facility] Medical History (Updated 07/23/24 @ 15:38 by LALA Magana) Hyperlipidemia Constipation Substance use disorder Complex sleep apnea syndrome Central sleep apnea comorbid with prescribed opioid use Testosterone deficiency in male CORETTA on CPAP Obesity (BMI 30-39.9) Hypogonadism in male Family History Mother No problems noted. Father No problems noted. Social History Housing: Apartment Patient Tobacco Use Status: Current everyday Tobacco user Cigarette Packs Per Day: 0.5 Cigarettes Per Day: 7 e-Cigarette/Vaping Use: Currently Using service: No Current occupational status: employed Cognitive needs: No Hearing needs: No Vision needs: No Review of Systems Const Details: Sleep Difficulty getting to sleep??denies.??Difficulty maintaining sleep??denies?.??Urge to move legs??denies.?? Teeth grinding??denies.??Shouting or Kicking during sleep??denies.??Abnormal behavior during sleep??denies.?? Excessive sleep??denies.??Snoring??admits.??Daytime sleepiness??denies.? General/Constitutional Change in appetite??denies.??Chills??denies.??Fatigue??denies.??Fever??denies.??Weight gain??denies.??Weight loss??denies.? Ophthalmologic Blurred vision??denies.??Diminished visual acuity??denies.? ENT Stuffiness??denies.??Decreased hearing??denies.??Dry mouth??denies.??Ear pain??denies.??Nosebleed??denies.?? Ringing in the ears??denies.??Sinus pain??denies.??Sore throat??denies.??Swollen glands??denies.? Endocrine Cold intolerance??denies.??Excessive thirst??denies.??Frequent urination??denies.??Heat intolerance??denies.? Respiratory Shortness of breath??denies.??Chest pain??denies.??Cough??denies.? Breast Breast lump??denies.??Nipple discharge??denies.? Cardiovascular Chest pain at rest??denies.??Chest pain with exertion??denies.??Claudication??denies.??Dizziness??denies.??Fluid accumulation in the legs??denies.??Irregular heartbeat??denies.??Palpitations??denies.? Gastrointestinal Abdominal pain??denies.??Constipation??denies.??Diarrhea??denies.?? Difficulty swallowing??denies.??Heartburn??denies.??Nausea??denies.??Rectal bleeding??denies.? Hematology Easy bruising??denies.??Prolonged bleeding??denies.? Genitourinary Frequent urination??denies.??Urgency??denies.??Incontinence??denies.??Erectile Dysfunction??denies.? Musculoskeletal Neck pain??denies.??Back pain??denies.??Muscle aches??denies.??Painful joints??denies.??Sciatica??denies.??Weakness??denies.? Podiatric Difficulty walking??denies.??Foot numbness??denies.? Neurologic Difficulty swallowing??denies.??Balance difficulty??denies.??Coordination??normal.? Difficulty speaking??denies.??Dizziness??denies.??Fainting??denies.??Gait abnormality??denies.??Headache??admits, chronic daily.? Loss of strength??denies.??Loss of use of extremity??denies.??Low back pain??denies.?? Memory loss??denies.??Seizures??denies.??Tics??denies.??Tingling/Numbness??denies.??Transient loss of vision??denies.??Tremor??denies.? Psychiatric Anxiety??admits.??Auditory/visual hallucinations??denies.??Delusions??denies.??Depressed mood??admits.??Stressors??denies.??Substance abuse??denies.??Suicidal thoughts??denies. Physical Exam Neuro Other: Abnormal neurological findings:??none.? Mental Status:?alert and oriented X 3,?Normal attention, orientation, memory and affect.? Cranial Nerves:?Pupils are equal, round and reactive to light. Fundoscopy shows normal disc bilaterally. External ocular muscles are intact. Visual tamez are full, no ptosis. Face is symmetrical, no facial weakness or droop. Facial sensations are normal. Tongue protrudes in midline. Palate elevates symmetrically. Shoulder shrugging is normal..? Motor Examination:?Normal muscle tone, bulk and strength,?No atrophy or fasciculations,?No drift of the extended upper extremities,?Deep tendon reflexes are 2+?,?Plantars are flexor?.? Motor Strength:? Proximal Muscles (out of 5):?5 Distal Muscles (out of 5):?5 Neck Flexors (out of 5):?5 Neck Extensors (out of 5):?5 Deltoid (out of 5):?5 Biceps (out of 5):?5 Triceps (out of 5):?5 Serratus Anterior (out of 5):?5 Wrist Extensors (out of 5):?5 APB (out of 5):?5 Finger Spread (out of 5):?5 Ileopsoas (out of 5):?5 Quadriceps (out of 5):?5 Hamstrings (out of 5):?5 Tibialis Anterior (out of 5):?5 Peronei (out of 5):?5 EDB (out of 5):?5 Gastrocnemius (out of 5):?5 Straight Leg Raising:?90 degrees.? Sensory Exam:?Normal light touch, temperature, pinprick, vibration and joint-position sensations?,?Rhomberg sign is absent.? Coordination:?no ataxia,?no titubation,?ahatvs-pi-auuq, lkbl-guqb-rdzn test and rapid alternating movements were normal.? Gait Exam:?Within normal limits.? Cerebellar Signs:?Rewjdy-tv-uuzi and cmsc-ze-hzka is normal,?no dysdiadochokinesia?.? Extrapyramidal System:?No tremor, rigidity with normal facial expressions,?No bradykinesia, no bradyphrenia. Normal arm swing and posture. No propulsion or retropulsion.? Speech:?Normal,?no dysphasia or dysarthria.. Mini Mental Status Exam Level of Consciousness:?Alert.? Orientation:?Knows correct year, month, date, day and season,?Knows correct city, county and state. Knows correct location and floor.? Registration:?Able to register 3 objects.? Attention:?Serial 7's performed accurately.? Recall:?Able to recall 3 out of 3 objects.? Language:?Normal spontaneous speech, fluency, repetition, ,naming, comprehension, reading and writing.? Total Score:?30/30. Assessment & Plan Assessment & Plan (1) Chronic daily headache: Code(s): R51.9 - Headache, unspecified Category: Medical (2) CORETTA on CPAP: Comment: PATIENT HAS HAD OBSTRUCTIVE SLEEP APNEA, BEING TREATED WITH CPAP, CPAP TITRATION STUDY SHOWED TREATMENT EMERGENT CENTRAL SLEEP APNEA. FOR THAT REASON HE HAD TITRATION WITH ASV MODE, AND IT DID ELIMINATE OBSTRUCTIVE WELL CENTRAL APNEA. NOW HE IS ON CPAP WITH ASV MODE AND IS DOING VERY WELL. COMPLIANCE IS GOOD AND RESIDUAL AHI ONLY 2.5. Code(s): G47.33 - Obstructive sleep apnea (adult) (pediatric); Z99.89 - Dependence on other enabling machines and devices Category: Medical Plan Stop daily use of Excedrin Migraine. Start Amitriptyline 25 mg hs and titrate to 50 mg hs. F/u in 2 months Medications: New amitriptyline 1 tab HS for 2 weeks then 2 tabs HS 25 mg PO BEDTIME 60 tabs 5RF 30 days Coding Level of Care Code New Pt Level 4 (53122) Diagnoses Chronic daily headache R51.9 CORETTA on CPAP G47.33; Z99.89
== END 2024-08-14 13:02 | disposition home or self-care (01) ==
LOC: HO.HSM 12:22
PROVIDERS: PCP Internal Medicine; Visit Provider Psychiatry & Neurology Neurology
DX: R51.9 Headache, unspecified (principal); G47.33 Obstructive sleep apnea (adult) (pediatric); Z99.89 Dependence on other enabling machines and devices
CPT/HCPCS: 99204

== ENCOUNTER → 2024-08-14 12:22 | Outpatient (BNVA) | payer OTHER, SELFPAY | PROVIDERS: PCP Internal Medicine; Visit Provider Psychiatry & Neurology Neurology | DX: G47.33 Obstructive sleep apnea (adult) (pediatric) (principal); Z99.89 Dependence on other enabling machines and devices; R51.9 Headache, unspecified | CPT/HCPCS: 99202 ==

== ENCOUNTER 2024-10-30 10:41 | Outpatient (AMB) | payer OTHER, SELFPAY ==
[2024-10-30 10:48] VITALS: BMI 28.0
--- NOTE | 2024-10-30 10:48 | MHC.AMNUTRGE ---
VS Expanded 10/30/24 10:48 Height 5 ft 11 in Weight 200 lb 9.93 oz BMI 28.0 Intake Visit Reasons: Obesity, unspecified Allergies No Known Allergies Allergy (Verified 07/23/24 14:34) Nutrition Presentation Details: Pt presents for MNT for obesity Pt reports working on diet modifications reducing on sugars, sodas Reports losing about 25-30 lbs since 07/2024 Denies GI symptoms Reports constipation (also on methadone since 2016) Food frequency fruits: 0-1/d, + juice including nuts in diet , variety Breakfast coffee or bowl of fruits lunch snack: cranberry/cashew/cheese Dinner : Eating out 3x/wk fried rice/chicken wings, wtaer BS Monitoring Most Recent Diabetes Results: Cholesterol, (<200) 243 mg/dL H 07/03/24 HDL Cholesterol, (>40) 42 mg/dL 07/03/24 Triglycerides, (<150) 89 mg/dL 07/03/24 Creatinine, (0.5-1.4) 1.08 mg/dL 07/03/24 BUN, (9-16) 14 mg/dL 07/03/24 Sodium, (135-145) 138 mmol/L 07/03/24 Potassium, (3.3-5.1) 4.4 mmol/L 07/03/24 Chloride, (96-108) 104 mmol/L 07/03/24 Carbon Dioxide, (22-29) 27 mmol/L 07/03/24 Calcium, (8.4-10.2) 9.4 mg/dL 07/03/24 AST, (5-37) 27 U/L 07/03/24 ALT, (0-40) 46 U/L H 07/03/24 Total Protein, (6.5-8.0) 7.8 g/dL 07/03/24 Albumin, (3.5-5.0) 4.5 g/dL 07/03/24 JHM-Dgwhgch-Tj.Jeor Equation Height: 5 ft 11 in Weight: 200 lb Resting Metabolic Rate: 1826.84 Calculated Activity Level: Sedentary Calories Needed to Maintain Weight: 2192.21 Diagnosis Nutrition problem #1: altered nutrition labs As related to (etiology) #1: diagnosis As evidenced by (sign/symptom) #1: abnormal lab values [facility] Medical History (Updated 11/01/24 @ 12:[address], LDN) Hyperlipidemia Constipation Substance use disorder Complex sleep apnea syndrome Central sleep apnea comorbid with prescribed opioid use Testosterone deficiency in male CORETTA on CPAP Obesity (BMI 30-39.9) Hypogonadism in male Family History Mother No problems noted. Father No problems noted. Social History Housing: Apartment Patient Tobacco Use Status: Current everyday Tobacco user Cigarette Packs Per Day: 0.5 Cigarettes Per Day: 7 e-Cigarette/Vaping Use: Currently Using service: No Current occupational status: employed Cognitive needs: No Hearing needs: No Vision needs: No Assessment & Plan Assessment & Plan (1) Obesity (BMI 30-39.9): Comment: Code(s): E66.9 - Obesity, unspecified Category: Medical Plan: current wt: 91 kg (11/08 ) est kcal needs as per MSJ: 2200 est protein needs as per 1 g/kg BW: 90 est fluid needs as per 30 ml/kg BW: 2700 Recommended fiber > 12 g /day and gradually increase up to 25-28 g /day or as tolerated Nutrition topics discussed : Reviewed (R), Pt verbalized understanding (V) , not applicable (N/A) R, : Healthy Plate Method Concept: R, : Carbohydrates: food sources of carbohydrates, relationship of carbohydrates to blood glucose, fatty liver GI health. Recommended total amount of carbohydrates per meals and snack. Differences between simple carbohydrates and complex carbohydrates R, : Lean protein foods including vegan , vegetarian sources of protein. Benefits of protein (including but not limited to healing, nutritional value , benefits in weight loss, glucose control R, V, N/A: Fats : Source of fats, benefits of fats. Difference between saturated and unsaturated fats. Saturated fats and its contribution to inflammation R, : Fiber: food sources and role of fiber in the diet (including but not limited to its role as a prebiotic, benefits in constipation, role in IBS , role in glucose control and cholesterol level) R, V, N/A: Hydration: role of hydration and prevention of dehydration or over hydration. Foods and water content. R, V, N/A: Vitamins and Minerals in foods and supplements R, V, N/A: Interpreting food labels, including serving size, macronutrients, vitamins, minerals, allergens, ingredient list , % daily value Patient Instructions: Choose low sugar beverages and keep hydrated 8-11 cups of low sugar fluids per day Increase fiber rich foods (fruits at least 3 a day, choose whole grains, include lentils/beans at least 3 times a week Continue working on choosing low fat food options when eating out - see list of options Coding Level of Care Code Nutr Indiv Intake (98246) Diagnoses Obesity (BMI 30-39.9) E66.9 Time Spent (min) 30
--- OUTSIDE RECORDS SUMMARY | 2024-10-30 14:13 | XMS_ITS | Clinical Summary ---
Author Organization [facility] Address [address] [place] [phone] Phone Care Team Providers Care Lead Data Architect Name Role Phone Brad Lynn MD Primary Care Provider [phone] Allergies No known active allergies Medications CYCLOBENZAPRINE HCL (FLEXERIL ORAL) Active Medication-Free Text ibuprofen Active NAPROXEN (NAPROSYN ORAL) Acti ve albuterol 90 mcg/actuation inhaler Inhale 2 puffs into the lungs every 6 (six) hours as needed for wheezing. 8 g Active Social History Tobacco Use Types Packs/Day Years Used Date Smoking Tobacco: Every Day Cigarettes Smokeless Tobacco: Never Alcohol Use Standard Drinks/Week Comments Not Currently 0 (1 standard drink = 0.6 oz pur e alcohol) Education Answer Date Recorded Are you interested in more education? Not on alber e 06/11/2022 Are you concerned about learning? Not on file 06/11/2022 No 06/11/2022 No 06/11/2022 Digital Access Answer Date Recorded No 07/12/2022 No 07/12/2022 Reliable internet access at home? Not on file 07/12/2022 Device with a working camera? Not on file Intimate Partner Violence Answer Date R ecorded Are you denied basic needs s uch as food, clothing, or medical care? No 01/12/2023 In the past 12 months have y ou been in a relationship with a person who hurts, threatens, or tries to control you? No 01/12/2023 Are you denied basic needs s uch as food, clothing, or medical care? No 01/12/2023 In the past 12 months have y ou been in a relationship with a person who hurts, threatens, or tries to control you? No 01/12/2023 Sex and Gender Information Value Date Recorded Sex Assigned at Male 01/09/2022 11:37 AM EST Legal Sex Male 10:29 PM EDT Gender Identity Male 01/09/2022 11:37 AM EST Sexual Orientation Straight 01/12/2023 9: 55 AM EST Last Filed Vital Signs Vital Sign Reading Time Taken Comments Blood Pressure 151/95 01/12/2023 10:30 AM EST Pulse 83 01/12/2023 10:30 AM EST Temperature 36.5 C (97.7 F) 01/12/2023 10:57 AM EST Respiratory Rate 18 01/12/2023 9:56 AM EST Oxygen Saturation 97% 01/12/2023 10:30 AM EST Inhaled Oxygen Concentration - - Weight 113.4 kg (250 lb) 01/12/2023 9:56 AM EST Height 177.8 cm (5' 10 ) 01/12/2023 9:56 AM EST Body Mass Index 35.87 01/12/2023 9:56 AM EST Plan of Treatment Not on file Medical Devices Not on file Insurance [facility] Care Teams Lead Data Architect Relationship Specialty Start Date End Date Brad Lynn MD [address] [place] [id number] PCP - General 02/17/17 Additional Source Comments The information contained in this document represents components of the legal health record. It is not the complete legal health record.[facility]
[2024-11-01 13:00] VITALS: BMI 27.9
== END 2024-10-30 11:16 | disposition home or self-care (01) ==
LOC: HO.ENCR 10:42
PROVIDERS: PCP Internal Medicine; Visit Provider Dietitian, Registered
DX: E66.9 Obesity, unspecified (principal)

== ENCOUNTER → 2024-10-30 10:41 | Outpatient (BNVA) | payer OTHER, SELFPAY | PROVIDERS: PCP Internal Medicine; Visit Provider Dietitian, Registered | DX: Z71.3 Dietary counseling and surveillance (principal); E66.9 Obesity, unspecified | CPT/HCPCS: 97802 ==

== ENCOUNTER 2024-11-07 12:04 | Outpatient (AMB) | payer OTHER, SELFPAY ==
--- NOTE | 2024-11-07 12:05 | A.OFFVIS_ITS ---
Intake Visit Reasons: 2m F/U headaches coretta on cpap Allergies No Known Allergies Allergy (Verified 11/07/24 12:09) Medication List - Last Reconciled 11/07/24 by Sophia Villar CNP albuterol sulfate 90 mcg/actuation (Ventolin HFA) 2 puffs inhalation Q6H PRN albuterol sulfate mg inhalation amitriptyline 25 mg PO BEDTIME 30 days atorvastatin 40 mg PO DAILY clonidine HCl 0.1 mg PO BEDTIME escitalopram oxalate 10 mg PO DAILY linaclotide (Linzess) 145 mcg PO DAILY [methadone PO] modafinil 100 mg PO DAILY needle (disp) 18 G (BD Regular Bevel [place]) As directed - draw up testosterone nicotine (polacrilex) (Nicorette) 2 mg buccal Q2H PRN safety needles (Easy Touch FlipLock Needle) As directed safety needles (BD SafetyGlide Needle) As directed for testosterone injection syringe (disposable) (BD Luer-Kitty Syringe) Testosterone injection weekly tadalafil 5 mg PO DAILY PRN 90 days testosterone cypionate (Depo-Testosterone) 100 mg (0.5 mL) subcut QWEEK 28 days HPI Comments Details: 44-year-old man with anxiety, depression, hypogonadism, history of CORETTA on CPAP for last 5 years, history of narcotic abuse in the past, currently on methadone maintenance which he is trying to taper off, currently down to 15mg/day from 135mg, and chronic daily headaches which started a little over a year ago. He was waking up with a dull headache that remained all day. Some days, it was only 1-2 on a scale of 10, other days was more intense. He has had 2 episodes of coital headache with intense headache for 10 minutes after intercourse. No other triggers identified. No nausea or vomiting. He feels pounding in the head associated with some photophobia about once every 2 weeks. No family history of headache. He was using Excedrin 1-2 tablets on a daily basis. He was doing okay. He was taking amitriptyline 25mg at bedtime. He was too drowsy with amitriptyline 50mg. Headaches were better with medication, with 1-2 bad headaches in the last month. He stopped Excedrin completely. Sleep was okay with CPAP. [facility]LY [facility] Medical History (Updated 11/07/24 @ 12:09 by Sophia Villar CNP) Hyperlipidemia Constipation Substance use disorder Complex sleep apnea syndrome Central sleep apnea comorbid with prescribed opioid use Testosterone deficiency in male CORETTA on CPAP Obesity (BMI 30-39.9) Hypogonadism in male Family History Mother No problems noted. Father No problems noted. Social History Housing: Apartment Patient Tobacco Use Status: Current everyday Tobacco user Cigarette Packs Per Day: 0.5 Cigarettes Per Day: 7 e-Cigarette/Vaping Use: Currently Using service: No Current occupational status: employed Cognitive needs: No Hearing needs: No Vision needs: No Review of Systems Const Denies chills, Denies daytime sleepiness, Denies difficulty sleeping, Denies fatigue, Denies fever(s), Denies frequent falls, Reports headache(s), Denies increased appetite, Denies poor appetite, Reports snoring, Denies weakness, Denies weight gain and Denies weight loss Eyes Denies loss of vision ENT Denies vertigo, Denies dizziness, Reports headache(s) and Denies neck pain Card Denies chest pain at rest, Denies chest pain with activity, Denies syncope, De nies leg edema, Denies palpitations, Denies dyspnea and Denies dyspnea on exertion Resp Denies cough, Denies dyspnea, Denies dyspnea on exertion and Reports snoring GI Denies abdominal pain, Denies constipation, Denies heartburn, Denies diarrhea and Denies nausea Denies urinary frequency, Denies urinary incontinence and Denies urinary urgency Musc Denies abnormal gait, Denies back pain, Denies myalgias, Denies arthralgias, Denies neck pain, Denies numbness and Denies tingling Neuro Denies abnormal gait, Denies vertigo, Denies dizziness, Denies syncope, Denies frequent falls, Reports headache(s), Denies lack of coordination, Denies loss of vision, Denies memory loss, Denies numbness, Denies Other visual disturbances, Denies restless legs, Denies seizure-like activity, Denies tingling, Denies paresthesias, Denies tremor(s) and Denies weakness Psych Reports anxiety, Reports depression, Denies auditory hallucinations, Denies memory loss and Denies visual hallucinations Endo Denies fatigue and Denies palpitations Physical Exam Const Other: General Appearance:? normal, in no acute distress. Heart:? S1, S2 normal, no murmurs. Lungs:? clear anteriorly and posteriorly. Musculoskeletal:? normal. Extremities:? no edema. Psych:? alert, oriented, cognitive function intact, cooperative with exam. Neuro Other: Abnormal Neurological Findings:?none.? Mental Status: alert and oriented X 3. Normal attention, orientation, memory, and affect. Cranial Nerves: Pupils are equal, round, and reactive to light. External ocular muscles are intact. Visual tamez are full, no ptosis. Face is symmetrical, no facial weakness or droop. Facial sensations are normal. Tongue protrudes in midline. Palate elevates symmetrically. Shoulder shrugging is normal Motor Examination: Normal muscle tone, bulk and strength. No atrophy or fasciculations. No drift of the extended upper extremities. DTR 2+. Plantars are flexor. Sensory Exam: Normal light touch, temperature, pinprick, vibration, and joint-position sensations. Rhomberg sign is absent. Coordination: No ataxia. No titubation. Inziqq-lw-imvu, xsxy-lplt-kler test, and rapid alternating movements were normal. Gait Exam: Within normal limits. Cerebellar Signs: Kkbocm-bj-zgyy and ysjz-er-iqvv is normal. No dysdiadochokinesia. Extrapyramidal System: No tremor, rigidity with normal facial expressions. No bradykinesia. No bradyphrenia. Normal arm swing and posture. No propulsion or retropulsion. Speech: Normal. Results Reviewed Results Reviewed: CT scan and MRA of the head: normal except for ethmoid sinusitis. Assessment & Plan Assessment & Plan (1) Chronic daily headache: Code(s): R51.9 - Headache, unspecified Category: Medical Plan: Headaches were better with amitriptyline 25mg and medication was continued. He was too drowsy with amitriptyline 50mg. Continue amitriptyline 25mg 1 tablet at bedtime. (2) CORETTA on CPAP: Comment: PATIENT HAS HAD OBSTRUCTIVE SLEEP APNEA, BEING TREATED WITH CPAP, CPAP TITRATION STUDY SHOWED TREATMENT EMERGENT CENTRAL SLEEP APNEA. FOR THAT REASON HE HAD TITRATION WITH ASV MODE, AND IT DID ELIMINATE OBSTRUCTIVE WELL CENTRAL APNEA. NOW HE IS ON CPAP WITH ASV MODE AND IS DOING VERY WELL. COMPLIANCE IS GOOD AND RESIDUAL AHI ONLY 2.5. Code(s): G47.33 - Obstructive sleep apnea (adult) (pediatric); Z99.89 - Dependence on other enabling machines and devices Category: Medical Plan . Medications: Changed From amitriptyline 1 tab HS for 2 weeks then 2 tabs HS 25 mg PO BEDTIME 30 days 60 tabs 5RF To amitriptyline 25 mg PO BEDTIME 90 tabs 1RF 90 days Coding Level of Care Code Est Pt Level 4 (06869) Diagnoses Chronic daily headache R51.9 CORETTA on CPAP G47.33; Z99.89
--- OUTSIDE RECORDS SUMMARY | 2024-11-07 14:54 | XMS_ITS | Clinical Summary ---
Author Organization [facility] Address [address] [place] [phone] Phone Care Team Providers Care Operations Developer Name Role Phone Brad Lynn MD Primary Care Provider [phone] Allergies No known active allergies Medications CYCLOBENZAPRINE [...] Medical Devices Not on file Insurance [facility] Care Teams Operations Developer Relationship Specialty Start Date End Date Brad Lynn MD [address] [place] [phone] PCP - General 02/17/17 Additional Source Comments The information contained in this document represents components of the legal health record. It is not the complete legal health record.[facility]
== END 2024-11-07 12:20 | disposition home or self-care (01) ==
LOC: HO.HSM 12:05
PROVIDERS: PCP Internal Medicine; Visit Provider Registered Nurse
DX: R51.9 Headache, unspecified (principal); G47.33 Obstructive sleep apnea (adult) (pediatric); Z99.89 Dependence on other enabling machines and devices
CPT/HCPCS: 99214

== ENCOUNTER → 2024-11-07 12:04 | Outpatient (BNVA) | payer OTHER, SELFPAY | PROVIDERS: PCP Internal Medicine; Visit Provider Registered Nurse | DX: G47.33 Obstructive sleep apnea (adult) (pediatric) (principal); R51.9 Headache, unspecified; Z99.89 Dependence on other enabling machines and devices; Z79.899 Other long term (current) drug therapy | CPT/HCPCS: 99212 ==

== ENCOUNTER 2024-11-22 13:23 | Outpatient (AMB) | payer OTHER, SELFPAY ==
--- NOTE | 2024-11-22 13:25 | MHC.OFFVIS ---
Vital Signs 11/22/24 13:26 Height 5 ft 11 in Weight 209 lb 7.026 oz BMI 29.2 BP 140/80 H Blood Pressure Location Rt brachial Position Sitting Pulse 78 Pulse Source Pulse Oximeter Pulse Oximetry (%) 100 Oxygen Delivery Method Room Air Intake Visit Reasons: Obstructive sleep apnea Allergies No Known Allergies Allergy (Verified 11/22/24 13:31) Medication List - Last Reconciled 11/22/24 by Simran Davila MD albuterol sulfate 90 mcg/actuation (Ventolin HFA) 2 puffs inhalation Q6H PRN albuterol sulfate mg inhalation amitriptyline 25 mg PO BEDTIME 90 days atorvastatin 40 mg PO DAILY clonidine HCl 0.1 mg PO BEDTIME escitalopram oxalate 10 mg PO DAILY linaclotide (Linzess) 145 mcg PO DAILY [methadone PO] modafinil 100 mg PO DAILY needle (disp) 18 G (BD Regular Bevel [place]) As directed - draw up testosterone nicotine (polacrilex) (Nicorette) 2 mg buccal Q2H PRN safety needles (Easy Touch FlipLock Needle) As directed safety needles (BD SafetyGlide Needle) As directed for testosterone injection syringe (disposable) (BD Luer-Kitty Syringe) Testosterone injection weekly tadalafil 5 mg PO DAILY PRN 90 days testosterone cypionate (Depo-Testosterone) 100 mg (0.5 mL) subcut QWEEK 28 days Do you need a note to return to daycare/school/sports/work: No HPI HPI Obstructive sleep apnea: Details: 44 years old gentleman is here for 6 months follow-up for his sleep apnea. He is a regular user of CPAP however the hours that he sleeps and uses the CPAP are different every day. 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 BUT HE IS SLEEPING ABOUT 6 - 7 HOURS EVERY NIGHT/DAY . CPAP IS WORKING FINE . HE HAS NO COMPLAINT. HAD GEAR WAS WORN AND SO HE WAS GETTING SOME AIR LEAK NOW HE IS EXPECTING TO HAVE THE NEW GEAR AND WOULD MAKE SURE THAT THE AIR LEAK IS CONTROLLED. HE HAS A MILD INTERMITTENT BRONCHIAL ASTHMA AND NEEDS TO USE ALBUTEROL BUT ONLY 2 OR 3 TIMES A MONTH. [facility] Medical History Hyperlipidemia Constipation Substance use disorder Complex sleep apnea syndrome Central sleep apnea comorbid with prescribed opioid use Testosterone deficiency in male CORETTA on CPAP Obesity (BMI 30-39.9) Hypogonadism in male Family History Mother No problems noted. Father No problems noted. Social History Housing: Apartment Patient Tobacco Use Status: Current everyday Tobacco user Cigarette Packs Per Day: 0.5 Cigarettes Per Day: 7 e-Cigarette/Vaping Use: Currently Using service: No Current occupational status: employed Cognitive needs: No Hearing needs: No Vision needs: No Review of Systems Const All systems reviewed & are unremarkable except as noted in HPI and below Eyes Reports no additional complaints ENT Reports no additional complaints Card Denies chest pain, Denies irregular heart rhythm, Denies leg edema and Denies dyspnea Resp Denies cough, Denies dyspnea and Denies wheezing GI Reports no additional complaints Reports change in libido and Reports erectile dysfunction (PATIENT ON TEST 0 STEROID ON THERAPY) Musc Reports no additional complaints Skin/Breast Reports system reviewed and no additional complaints, except as documented Neuro Reports no additional complaints Psych Reports no additional complaints and Reports change in libido Endo Reports change in libido and Reports other (BEING TREATED FOR HYPOGONADISM) Tremaine/Lymph Reports no additional complaints Aller/Immun Denies wheezing Physical Exam Vital Signs: Last Vital Signs Pulse 78 11/22/24 13:26 Pulse Ox 100 11/22/24 13:26 Oxygen Delivery Method Room Air 11/22/24 13:26 BMI result Body Mass Index 29.2 Const Other: PATIENT HAS ROUND FACE AND OBESE NECK General: comfortable, no acute distress, alert and awake Orientation/consciousness: patient oriented x3 HEENT Other: MALLAMPATI CLASS 4 Head: Yes normal to inspection General nose exam: No nasal polyps present and No nasal discharge present Face and sinus: Yes sinuses nontender Mouth: oropharynx normal Throat: Yes posterior oropharynx normal Eyes General: appearance normal, both eyes and all related structures Neck Neck: Yes normal visual inspection, Yes no lymphadenopathy, Yes trachea midline, Yes no JVD and Yes other (NECK CIRCUMFERENCE 18-1/2 INCH) Thyroid: Thyroid normal Chest Chest palpation & inspection: normal inspection of the chest, normal palpation of entire chest wall and no tenderness Resp Effort & Inspection: normal respiratory effort Auscultation: clear to auscultation bilaterally, no crackles and no wheezes Cardio Palpation: normal PMI Rate: regular rate Rhythm: regular rhythm Heart sounds: no gallops and no murmurs Peripheral pulses: Peripheral pulses 2+ throughout GI Palpation (GI): Soft to palpation, nontender, No hepatosplenomegaly present and no masses Auscultation: normal bowel sounds Back/Spine/Pelvis Thoracic/Lumbar Spine: thoracic and lumbar spine normal to inspection Skin General skin exam: no rashes or lesions noted Neuro General: patient oriented x3 and no focal motor deficits Cranial nerves: Yes CN's II-XII intact bilaterally Extrem General: Yes normal to inspection, Yes no clubbing, cyanosis or edema and Yes no calf tenderness Psych Appearance: grossly normal and well kempt Speech and movement: Normal speech and movement present Results Reviewed Results Reviewed: COMPLIANCE REPORT FOR THE LAST 30 NIGHTS IS REVIEWED. HE USES 100% OF THE NIGHTS, AVERAGE USE IT PER NIGHT 6 HOURS 33 MINUTES. AIR CURVE 10 ASV ( EPAP 9 CMs PS MIN 3 CMs PS MAX 15 CMS Assessment & Plan Assessment & Plan (1) Complex sleep apnea syndrome: Comment: THIS GENTLEMAN IS A CASE OF OBSTRUCTIVE SLEEP APNEA AND,TREATMENT EMERGENT CENTRAL APNEA. HE IS BEING TREATED WITH ASV MODE AND RESPONDING FAIRLY WELL. USES CPAP EVERY NIGHT AND SLEEPS WELL. COMPLIANCE IS EXCELLENT . * IT SHOULD BE NOTED THAT THE CENTRAL APNEA IS PROBABLY CAUSED DUE TO HIS TREATMENT WITH METHADONE . Code(s): G47.31 - Primary central sleep apnea Category: Medical Plan: CONTINUE TO USE THE CPAP EVERY DAY/NIGHT KEEP ON CUTTING DOWN THE DOSE OF METHADONE SLOWLY (2) CORETTA on CPAP: Comment: PATIENT HAS HAD OBSTRUCTIVE SLEEP APNEA, BEING TREATED WITH CPAP, CPAP TITRATION STUDY SHOWED TREATMENT EMERGENT CENTRAL SLEEP APNEA. FOR THAT REASON HE HAD TITRATION WITH ASV MODE, AND IT DID ELIMINATE OBSTRUCTIVE WELL CENTRAL APNEA. NOW HE IS ON CPAP WITH ASV MODE AND IS DOING VERY WELL. COMPLIANCE IS GOOD AND RESIDUAL AHI 6 . Code(s): G47.33 - Obstructive sleep apnea (adult) (pediatric); Z99.89 - Dependence on other enabling machines and devices Category: Medical Plan: COMPLIANCE IS GOOD AND HE IS ENCOURAGED TO KEEP ON USING IT EVERY DAY (3) Substance use disorder: Comment: HE IS STILL ON METHADONE HAS REDUCED TO 15 MG A DAY. Code(s): F19.90 - Other psychoactive substance use, unspecified, uncomplicated Category: Medical Plan: ADVISED TO KEEP ON USING METHADONE AND BE FOLLOWED THE METHADONE CLINIC CLOSELY Coding Level of Care Code Est Pt Level 3 (97699) Diagnoses Complex sleep apnea syndrome G47.31 CORETTA on CPAP G47.33; Z99.89 Substance use disorder F19.90
[2024-11-22 13:26] VITALS: BP 140/80; PULSE 78; O2SAT 100; BMI 29.2
== END 2024-11-22 13:44 | disposition home or self-care (01) ==
LOC: HO.HPS 13:24
PROVIDERS: PCP Internal Medicine; Visit Provider Internal Medicine
DX: G47.31 Primary central sleep apnea (principal); G47.33 Obstructive sleep apnea (adult) (pediatric); Z99.89 Dependence on other enabling machines and devices; F19.90 Other psychoactive substance use, unspecified, uncomplicated
CPT/HCPCS: 99213

== ENCOUNTER → 2024-11-22 13:23 | Outpatient (BNVA) | payer OTHER, SELFPAY | PROVIDERS: PCP Internal Medicine; Visit Provider Internal Medicine | DX: G47.31 Primary central sleep apnea (principal); G47.33 Obstructive sleep apnea (adult) (pediatric); F11.20 Opioid dependence, uncomplicated; Z99.89 Dependence on other enabling machines and devices | CPT/HCPCS: 99212 ==

== ENCOUNTER 2024-12-05 13:42 | Outpatient (REF) | payer OTHER, SELFPAY ==
[2024-12-05 14:21] LABS: MANUAL DIFF FLAG NO
[2024-12-05 14:39] LABS: Hematocrit 53.2 % (42.0-52.0); Hemoglobin 17.4 g/dl (14.0-18.0); Imm Gran Abs Auto 0.02 X10*3/uL (0.00-0.03); Imm Gran Pct Auto 0.3 % (0.0-0.4); Lymphocytes Absolute Auto 2.0 X10*3/uL (1.2-4.9); Mean Corpuscular HGB Conc 32.7 g/dl (31.0-36.0); Mean Corpuscular Hemoglobin 27.4 pg (27.0-33.0); Mean Corpuscular Volume 83.9 fL (80.0-98.0); NRBC Abs Auto 0.000 X10*3/uL (0.0-0.012); NRBC Pct Auto 0.0 /100WBC (0.0-0.2); Platelet Count 252 X10*3/uL (160-400); Red Blood Count 6.34 X10*6/uL (4.60-5.80); White Blood Count 7.5 X10*3/uL (4.8-10.8)
[2024-12-05 15:18] LABS: Alanine Aminotransferase 42 U/L (0-40); Albumin Level 4.9 g/dL (3.5-5.0); Alkaline Phosphatase 92 U/L (39-117); Anion Gap 11 (12-20); Aspartate Amino Transferase 22 U/L (5-37); Blood Urea Nitrogen 12 mg/dL (9-16); Calcium 9.6 mg/dL (8.4-10.2); Carbon Dioxide 31 mmol/L (22-29); Chloride 102 mmol/L (96-108); Cholesterol 213 mg/dL (<200); Estimated Glomerular Filt Rate > 60; HDL Cholesterol 39 mg/dL (>40); Iron 148 mcg/dL (45-160); Percent Iron Saturation 54 % (15-50); Potassium 4.4 mmol/L (3.3-5.1); Sodium 140 mmol/L (135-145); Total Iron Binding Capacity 273 mcg/dL (228-428); Total Protein 7.9 g/dL (6.5-8.0); Triglycerides 95 mg/dL (<150); Unsaturated Iron Binding 125 ug/dL
[2024-12-05 15:38] LABS: Vitamin B12 884 pg/mL (200-900)
== END 2024-12-05 13:43 | disposition home or self-care (01) ==
LOC: HO.LAB 13:42
PROVIDERS: PCP Internal Medicine; Visit Provider Physician Assistant
DX: E29.1 Testicular hypofunction (principal); R41.89 Other symptoms and signs involving cognitive functions and awareness; R53.83 Other fatigue; F19.90 Other psychoactive substance use, unspecified, uncomplicated; F11.90 Opioid use, unspecified, uncomplicated; G47.37 Central sleep apnea in conditions classified elsewhere; E66.9 Obesity, unspecified; E78.5 Hyperlipidemia, unspecified; G44.82 Headache associated with sexual activity; Z79.899 Other long term (current) drug therapy; Z68.27 Body mass index [BMI] 27.0-27.9, adult
CPT/HCPCS: 36415; 80048; 80061; 80076; 82306; 82607; 83525; 83540; 84403; 84681; 85025; 99212

== ENCOUNTER 2024-12-05 13:42 | Outpatient (AMB) | payer OTHER, SELFPAY ==
--- NOTE | 2024-12-05 12:47 | A.OFFPC_ITS ---
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 Accompanied by: Self / Same As Patient Allergies No Known Allergies Allergy (Verified 12/05/24 12:47) Medication List - Last Reconciled 12/05/24 by LALA Magana albuterol sulfate 90 mcg/actuation (Ventolin HFA) 2 puffs inhalation Q6H PRN albuterol sulfate mg inhalation amitriptyline 25 mg PO BEDTIME 90 days atorvastatin 40 mg PO DAILY clonidine HCl 0.1 mg PO BEDTIME escitalopram oxalate 5 mg PO QAM linaclotide (Linzess) 145 mcg PO DAILY [methadone PO] metronidazole 0.75% appl topical PRN modafinil 100 mg PO DAILY needle (disp) 18 G (BD Regular [employer]) As directed - draw up testosterone nicotine (polacrilex) (Nicorette) 2 mg buccal Q2H PRN safety needles (Easy Touch FlipLock Needle) As directed safety needles (BD SafetyGlide Needle) As directed for testosterone injection syringe (disposable) (BD Luer-Kitty Syringe) Testosterone injection weekly tadalafil 5 mg PO DAILY PRN 90 days testosterone cypionate (Depo-Testosterone) 100 mg (0.5 mL) subcut QWEEK 28 days Tobacco use date assessed: 06/06/24 Dental Screening Dental Screen Date: 06/06/24 HPI HPI Comments History of Present Illness Details 44-year-old male with history of opiate use disorder, hyperlipidemia, central sleep apnea, obesity who is a current cigarette smoker presents to the office today for follow-up. Hyperlipidemia-last LDL 186. Recently started on atorvastatin 40 mg daily. Denies any adverse side effects. Due for repeat lipid panel Opioid use disorder-following with [facility] and [facility]. Has been tapering off methadone, down from 135 mg. He is not used any illicit substances in 7 years. Central sleep apnea-likely related to methadone use. He is compliant with AVS machine. Following with pulmonology Cigarette smoking-reports he has cut down to 5 cigarettes per day, interested in total cessation. Has, at home Chronic constipation- likely r/t opioid use. On linzess following with GI Depression/anxiety-follows with [facility] for therapy and psychiatry. Not overly controlled. Still feels some depression but denies SI/HI. He is taking Lexapro and clonidine Obesity-reports walking his dog but no other formal exercise. Not currently fol lowing healthy diet but interested in referral to dietitian Chronic daily headaches-amitriptyline recently increased. Following with Neurology Concerns: Brain fog/fatigue-possibly related to uncontrolled depression, hypogonadism, vitamin deficiency, metabolic dysfunction ROS: See HPI EXAM: Constitutional - Awake and Alert, No apparent distress Eyes - PERRLA, EOMI Cardiovascular - S1S2, RRR, No edema Respiratory - Normal lung expansion, Normal respiratory effort, No respiratory distress, CTA bilaterally Extremities - no calf tenderness bilaterally, no swelling . venous stasis viveros ged b/l Skin - Warm/Dry Neurological - Alert & oriented x3, CN II-XII in tact, 5/5 strength BUE and BLE Psychological - depressed mood PFSH Medical History Hyperlipidemia Constipation Substance use disorder Complex sleep apnea syndrome Central sleep apnea comorbid with prescribed opioid use Testosterone deficiency in male CORETTA on CPAP Obesity (BMI 30-39.9) Hypogonadism in male Family History Mother No problems noted. Father No problems noted. Social History Housing: Apartment Patient Tobacco Use Status: Current everyday Tobacco user Cigarette Packs Per Day: 0.5 Cigarettes Per Day: 7 e-Cigarette/Vaping Use: Currently Using service: No Current occupational status: employed Cognitive needs: No Hearing needs: No Vision needs: No Questionnaire Thrive Questionnaire Date Thrive assessed: 06/06/24 REVA-7 AMB Questionnaire REVA-7 Date RVEA - 7 assessed: 06/06/24 Source: Developed by Drs. Baudilio Wheeler, Sonal Casillas, Nguyễn Phillips and colleagues, with an educational jaxon from [employer]. Physical exam (Primary Care) Vital Signs: Last Vital Signs Temp 98.1 F 12/05/24 13:47 Pulse 91 12/05/24 13:47 Resp 16 12/05/24 13:47 BP 108/80 12/05/24 13:47 Pulse Ox 97 12/05/24 13:47 Oxygen Delivery Method Room Air 12/05/24 13:47 BMI result Body Mass Index 27.7 Tobacco/Smoking Status: Tobacco use Status Tobacco use date assessed 06/06/24 12/05/24 12:48 Patient Tobacco Use Status Current everyday Tobacco 12/05/24 12:48 e-Cigarette/Vaping Use Currently Using 12/05/24 12:48 Thrive Assessment: Date of Thrive Assessment Date Thrive assessed 06/06/24 12/05/24 12:48 Coding Level of Care Code Est Pt Level 4 (25011) Complex EM visit Add On G2211 Diagnoses Substance use disorder F19.90 Hypogonadism in male E29.1 Obesity (BMI 30-39.9) E66.9 Central sleep apnea comorbid with prescribed opioid use F11.90; G47.37 Chronic daily headache R51.9 Headache associated with orgasm G44.82 Hyperlipidemia E78.5 Brain fog R41.89 Assessment & Plan Assessment & Plan (1) Substance use disorder: Comment: HE IS STILL ON METHADONE HAS REDUCED TO 15 MG A DAY. Code(s): F19.90 - Other psychoactive substance use, unspecified, uncomplicated Category: Medical Plan: Continue following with [facility] for methadone taper. Commended on his sobriety (2) Hypogonadism in male: Code(s): E29.1 - Testicular hypofunction Category: Medical Plan: Testosterone levels improved but remain deficient on recent labs. We will recheck total testosterone level. Continue with supplementation. Advised to schedule appointment with Urology. Continue with weight loss. Check insulin levels/C-peptide (3) Obesity (BMI 30-39.9): Comment: Code(s): E66.9 - Obesity, unspecified Category: Medical Plan: Weight loss efforts encouraged. Recommendend diet lower in calories wiht emphasis on increased protein/vegetables/fruit limiting refined sugars/simple carbs and highly processed foods. Recommend increased exercise. [employer] referral placed at pt request (4) Central sleep apnea comorbid with prescribed opioid use: Comment: PATIENT HAS TREATMENT EMERGENT CENTRAL SLEEP APNEA, THE BASIC CAUSE BEING (OPIOID USAGE ) SEE UNDER CORETTA Code(s): F11.90 - Opioid use, unspecified, uncomplicated; G47.37 - Central sleep apnea in conditions classified elsewhere Category: Medical Plan: controlled. continue following with pulmonology and continue use AVS as advised (5) Chronic daily headache: Code(s): R51.9 - Headache, unspecified Category: Medical Plan: H continue following with Neurology. Continue prophylactic medications. (6) Headache associated with orgasm: Code(s): G44.82 - Headache associated with sexual activity Category: Medical Plan: as above (7) Hyperlipidemia: Code(s): E78.5 - Hyperlipidemia, unspecified Category: Medical Plan: Repeat lipid profile ordered. Continue atorvastatin (8) Brain fog: Code(s): R41.89 - Other symptoms and signs involving cognitive functions and awareness Category: Medical Plan: Possibly multifactorial as noted in HPI. Labs up below. Depression is not well-controlled, advised to reach out to psychiatrist Plan Follow-up in 4-6 months Orders: Orders C Peptide Today E29.1 - Testicular hypofunction, R41.89 - Other symptoms and signs involving cognitive functions and awareness, R53.83 - Other fatigue IRON PROFILE Today E29.1 - Testicular hypofunction, R41.89 - Other symptoms and signs involving cognitive functions and awareness, R53.83 - Other fatigue Vitamin D 25-OH Total Today E29.1 - Testicular hypofunction, R41.89 - Other symptoms and signs involving cognitive functions and awareness, R53.83 - Other fatigue Vitamin B12 Today E29.1 - Testicular hypofunction, R41.89 - Other symptoms and signs involving cognitive functions and awareness, R53.83 - Other fatigue Testosterone, Total Today E29.1 - Testicular hypofunction, R41.89 - Other symptoms and signs involving cognitive functions and awareness, R53.83 - Other fatigue Insulin Today E29.1 - Testicular hypofunction, R41.89 - Other symptoms and signs involving cognitive functions and awareness, R53.83 - Other fatigue Basic Metabolic Panel Today E29.1 - Testicular hypofunction, R41.89 - Other symptoms and signs involving cognitive functions and awareness, R53.83 - Other fatigue Complete Blood Count Auto Diff Today E29.1 - Testicular hypofunction, R41.89 - Other symptoms and signs involving cognitive functions and awareness, R53.83 - Other fatigue
[2024-12-05 13:47] VITALS: BP 108/80; PULSE 91; RESP 16; TEMP 36.7; O2SAT 97; BMI 27.7
== END 2024-12-05 14:02 | disposition home or self-care (01) ==
LOC: HO.HMCHD 13:42
PROVIDERS: PCP Internal Medicine; Visit Provider Physician Assistant
DX: F19.90 Other psychoactive substance use, unspecified, uncomplicated (principal); E29.1 Testicular hypofunction; E66.9 Obesity, unspecified; F11.90 Opioid use, unspecified, uncomplicated; G47.37 Central sleep apnea in conditions classified elsewhere; R51.9 Headache, unspecified; G44.82 Headache associated with sexual activity; E78.5 Hyperlipidemia, unspecified; R41.89 Other symptoms and signs involving cognitive functions and awareness

== ENCOUNTER 2024-12-19 11:06 | Outpatient (AMB) | payer OTHER, SELFPAY ==
--- NOTE | 2024-12-19 11:28 | MHC.AMNUTRGE ---
VS Expanded 12/19/24 11:31 Height 5 ft 11 in Weight 201 lb 8.04 oz BMI 28.1 Intake Visit Reasons: overweight Allergies No Known Allergies Allergy (Verified 12/05/24 12:47) Nutrition Presentation Details: Pt presents for MNT for obesity Patient reports working on having 2-3 meals a day and choosing complex carbohydrates and low fat foods. Patient admits to increasing his intake of beverages with sugar. Patient has questions regarding fats in dressings and condiments BS Monitoring Most Recent Diabetes Results: Cholesterol, (<200) 213 mg/dL H 12/05/24 HDL Cholesterol, (>40) 39 mg/dL L 12/05/24 Triglycerides, (<150) 95 mg/dL 12/05/24 Creatinine, (0.5-1.4) 0.95 mg/dL 12/05/24 BUN, (9-16) 12 mg/dL 12/05/24 Sodium, (135-145) 140 mmol/L 12/05/24 Potassium, (3.3-5.1) 4.4 mmol/L 12/05/24 Chloride, (96-108) 102 mmol/L 12/05/24 Carbon Dioxide, (22-29) 31 mmol/L H 12/05/24 Calcium, (8.4-10.2) 9.6 mg/dL 12/05/24 AST, (5-37) 22 U/L 12/05/24 ALT, (0-40) 42 U/L H 12/05/24 Total Protein, (6.5-8.0) 7.9 g/dL 12/05/24 Albumin, (3.5-5.0) 4.9 g/dL 12/05/24 [facility] Medical History Hyperlipidemia Constipation Substance use disorder Complex sleep apnea syndrome Central sleep apnea comorbid with prescribed opioid use Testosterone deficiency in male CORETTA on CPAP Obesity (BMI 30-39.9) Hypogonadism in male Family History Mother No problems noted. Father No problems noted. Social History Housing: Apartment Patient Tobacco Use Status: Current everyday Tobacco user Cigarette Packs Per Day: 0.5 Cigarettes Per Day: 7 e-Cigarette/Vaping Use: Currently Using service: No Current occupational status: employed Cognitive needs: No Hearing needs: No Vision needs: No Assessment & Plan Assessment & Plan (1) Obesity (BMI 30-39.9): Comment: Code(s): E66.9 - Obesity, unspecified Category: Medical Plan: Patient in overweight category current wt: 91 kg (11/08 ), 92kg(01/08) est kcal needs as per MSJ: 2200 est protein needs as per 1 g/kg BW: 90 est fluid needs as per 30 ml/kg BW: 2700 Recommended fiber > 12 g /day and gradually increase up to 25-28 g /day or as tolerated Nutrition topics discussed : Reviewed (R), Pt verbalized understanding (V) , not applicable (N/A) R, : Healthy Plate Method Concept: R, : Carbohydrates: food sources of carbohydrates, relationship of carbohydrates to blood glucose, fatty liver GI health. Recommended total amount of carbohydrates per meals and snack. Differences between simple carbohydrates and complex carbohydrates R, : Lean protein foods including vegan , vegetarian sources of protein. Benefits of protein (including but not limited to healing, nutritional value , benefits in weight loss, glucose control R, V, N/A: Fats : Source of fats, benefits of fats. Difference between saturated and unsaturated fats. Saturated fats and its contribution to inflammation R, : Fiber: food sources and role of fiber in the diet (including but not limited to its role as a prebiotic, benefits in constipation, role in IBS , role in glucose control and cholesterol level) R, V, N/A: Hydration: role of hydration and prevention of dehydration or over hydration. Foods and water content. R, V, N/A: Vitamins and Minerals in foods and supplements R, V, N/A: Interpreting food labels, including serving size, macronutrients, vitamins, minerals, allergens, ingredient list , % daily value (2) Overweight (BMI 25.0-29.9): Code(s): E66.3 - Overweight Category: Medical Plan: Choose lower fat dressing options and use herbs for flavor - see list of options Coding Level of Care Code Nutr Indiv Subseq (85128) Diagnoses Obesity (BMI 30-39.9) E66.9 Overweight (BMI 25.0-29.9) E66.3 Time Spent (min) 20
[2024-12-19 11:31] VITALS: BMI 28.1
--- OUTSIDE RECORDS SUMMARY | 2024-12-19 13:20 | XMS_ITS | Clinical Summary ---
Author Organization [facility] Address [address] [place] [id number] Phone Care Team Providers Care Bar Back Name Role Phone Brad Lynn MD Primary Care Provider [phone] Allergies No known active allergies Medications CYCLOBENZAPRINE [...] Medical Devices Not on file Insurance [facility]LY [facility] FORMER[facility] Care Teams Bar Back Relationship Specialty Start Date End Date Brad Lynn MD [address] [place] [id number] PCP - General 02/17/17 Additional Source Comments The information contained in this document represents components of the legal health record. It is not the complete legal health record.[facility]
== END 2024-12-19 11:42 | disposition home or self-care (01) ==
LOC: HO.ENCR 11:06
PROVIDERS: PCP Internal Medicine; Visit Provider Dietitian, Registered
DX: E66.9 Obesity, unspecified (principal); E66.3 Overweight

== ENCOUNTER → 2024-12-19 11:06 | Outpatient (BNVA) | payer OTHER, SELFPAY | PROVIDERS: PCP Internal Medicine; Visit Provider Dietitian, Registered | DX: E66.3 Overweight (principal) | CPT/HCPCS: 97803 ==